=== PATIENT | female | born 1965 | race Caucasian/White ===

== ENCOUNTER 2016-10-07 16:49 | Inpatient (IN) | payer OTHER ==
[~2016-10-07] VITALS: Ht 167.6 cm; Wt 150.1 kg
[~2016-10-07 16:49] MED LIST: AMLO5TAB2 PO; AMT25T PO; ASPI325T32 PO; ATOR40TA69 PO; FLUO20CA25 PO; FURO40TA4 PO; GABA600T2 PO; GLIP5TAB21 PO; HYDR25TA4 PO; INSLIS SUBQ; INSU100V7 SUBQ; KEN25CR TP; LISI40TA PO; METF500T3 PO; MIRENA IUD VAGINAL
[2016-10-07 16:55] VITALS: BP 122/64; PULSE 112; RESP 20; O2SAT 98
[2016-10-07] MEDS ORDERED: mirena (17:17)
[2016-10-07] MEDS ORDERED: FERR325C PO (17:17)
[2016-10-07] MEDS ORDERED: CHOL40003 PO (17:17)
[2016-10-07] MEDS ORDERED: CYAN500 PO (17:17)
[2016-10-07] MEDS ORDERED: AMLO10TA3 PO (17:17)
[2016-10-07] MEDS ORDERED: ASCO500C6 PO (17:17)
[2016-10-07] MEDS ORDERED: MELA1TAB10 PO (17:17)
--- NOTE | 2016-10-07 17:44 | DRSVH ---
PROCEDURE: X-RAY CHEST ONE VIEW ([id number]) INDICATIONS: Fever TECHNIQUE: One view of the chest was acquired. COMPARISON: [facility], CR, XR CHEST 2VW, 08/16/2015, 10:06. FINDINGS: Surgical changes and devices: None. Lungs and pleura: No pleural effusions or pneumothorax. Lungs are clear. Mediastinum: Mediastinal contours appear normal. Heart size is normal. Bones and chest wall: No suspicious bony lesions. Overlying soft tissues appear unremarkable. IMPRESSION: No acute disease. Dictated by: Reggie Temple M.D. on 10/07/2016 at 17:41 Approved by: Reggie Temple M.D. on 10/07/2016 at 17:42
[2016-10-07 17:51] VITALS: BP 117/56; PULSE 111; RESP 20; O2SAT 92
[2016-10-07 17:52] LABS: BASOPHILS % (AUTO) 0.1 % (0-3); EOSINOPHILS % (AUTO) 0.2 % (0-5); Mean Corpuscular Hemoglobin 28.1 pg (27.0-35.0); Mean Corpuscular Volume 85.8 fL (81-100); NEUTROPHILS % (AUTO) 72.4 % (40-74); Platelet Count 164 bil/L (150-400)
--- NOTE | 2016-10-07 17:59 | ED.REPORT ---
HPI-General Illness Date of Service Oct 07, 2016 ED Provider: Azam Kapoor MD Pt is a 51 y/o female w/ a hx of prev UTI, DM, HTN, CVA w/ residual R-sided deficits, presenting to the ED from urgent care due to fever onset 4 days ago. Pt c/o mild headache, nausea, vomiting, fever, chills, left-sided back pain, malaise. She denies abdominal pain dysuria, urinary incontinence, SOB, cough, congestion. She has had a UTI previously but the symptoms were not similar. She states she has sensory loss about the right side of her body which may be causing her to not experience abdominal pain. Nursing Notes Stated Complaint: FEVER/SENT FROM URGENT CARE Chief Complaint: General Complaint Nursing Notes Reviewed: Yes Allergies: Uncoded Allergies: SEAFOOD=THROAT CLOSES PT STATES NO PROBLEM WITH IODINE (Allergy, Severe, "THROAT CLOSES-NO PROBLEMS W/ IODINE, 01/27/16) Scheduled Amitriptyline (Amitriptyline) 25 Mg Tab 50 MG PO HS Amlodipine (Amlodipine) 10 Mg Tablet 10 MG PO DAILY Ascorbic Acid (Vitamin C) 500 Mg Capsule.er 1,000 MG PO DAILY Aspirin (Aspirin) 325 Mg Tablet 325 MG PO DAILY Atorvastatin Calcium (Atorvastatin Calcium) 40 Mg Tablet 40 MG PO DAILY Cholecalciferol (Vitamin D3) (Vitamin D3) 4,000 Unit Capsule 4,000 UNIT PO DAILY Cyanocobalamin (Vitamin B12) 500 Mcg Tablet 1,000 MCG PO DAILY Ferrous Sulfate (Iron) 325 Mg Capsule.er 325 MG PO DAILY Fluoxetine (Fluoxetine) 20 Mg Capsule 80 MG PO DAILY Furosemide (Furosemide) 40 Mg Tablet 40 MG PO BID Gabapentin (Gabapentin) 600 Mg Tablet 600 MG PO QID TAKES 900MG @ HS Glipizide ER (Glipizide ER) 10 Mg Tab.er.24 10 MG PO DAILY Hydrochlorothiazide (Hydrochlorothiazide) 25 Mg Tablet 25-37.5 MG PO DAILY Insulin Glargine (Lantus U100 Insulin Vial) 100 Unit/Ml Vial 60 UNIT SUBQ BIDAC Lisinopril (Lisinopril) 40 Mg Tablet 40 MG PO BID Melatonin (Melatonin 1 mg Tablet) 1 Each Tablet 1 MG PO HS Metformin ER (Glucophage XR) 500 Mg Tablet 2,000 MG PO DAILYWD Scheduled PRN Insulin Human Lispro (HumaLOG U100 Insulin Vial) 100 Unit/Ml Unit 5-15 UNITS SUBQ q6hr PRN PRN Q6H DIR. Check blood sugars before meals and at bedtime. Use correction factor only before meals. Blood Sugar Lispro Correction: <151, 0 units; 151-175, 1 unit; 176-200, 2 units; 201-225, 3 units; 226-250, 4 units; 251-275, 5 units; 276-300 , 6 units; 301-325, 7 units; 326-350, 8 units; 351-375, 9 units; 376-400, 10 units; >400, 12 units. Miscellaneous Medications ([Mirena Iud]) VAGINAL 20MCG/24H ([mirena]) General Time Seen by MD: 17:54 Chief Complaint Multip medical complaints Hx Obtained From: Patient Arrived By: Walk-in Sudden in Onset?: No Onset Occurred: 4 days ago Symptom Duration: Since onset Location: : Back Quality: Painful Severity: Current: Mild Severity: Maximum: Mild Past Medical History Past Medical History CVA w/ residual R sided deficits Diabetes HTN Asthma TANIA on CPAP Anxiety Depression Sinusitis hx UTI Past Surgical History Cholecystectomy Hernia repair Bariatric BTL Teeth extractions Smoking History Former Smoker Ambulatory Status Independent Review of Systems Full Review of Systems Constitutional: Reports: Chills, Fever, Malaise, Weakness - generalized Respiratory: Denies: Non-productive cough, Shortness of breath Cardiovascular: Denies: Chest pain, Dyspnea on exertion GI: Reports: Nausea, Vomiting, Denies: Abdominal pain Female: Denies: Dysuria, Incontinence Musculoskeletal: Reports: Back pain Complete sys rev & neg: except as marked. Physical Exam Vital Signs Vital Signs Date Time Temp Pulse Resp B/P Pulse Ox O2 Delivery O2 Flow Rate FiO2 10/07/16 19:25 38.3 109 23 116/50 96 Room Air 10/07/16 18:12 39.5 111 20 125/52 93 Room Air 10/07/16 17:51 111 20 117/56 92 Room Air 10/07/16 16:55 38.4 112 20 122/64 98 Room Air Initial VS: Reviewed, Vital signs abnormal Head / Eyes: Atraumatic, Normocephalic, PERRL ENT: Mucous membranes moist, Conjunctiva normal, No scleral icterus Neck: Supple, Full range of motion Respiratory: Breath sounds normal, Clear to auscultation, No respiratory distress Extremities: Vascular intact, Neuro intact, No swelling Skin: Warm, Dry, No cyanosis Neurologic: Alert, Oriented, Nonfocal Psychiatric: Mood/affect normal, Behavior normal, Normal thought content General/Constitutional: Awake, Alert, No acute distress, Cooperative, Not toxic appearing Appearance / Presentation: Positive: Obese, morbidly Cardiovascular: Regular rhythm, Heart sounds NL, No gallop, No murmurs, No rubs Heart Rate / Rhythm: Positive: Tachycardia Abdomen: Atraumatic, Soft, No guarding, No rebound Tenderness/Guarding/Rebound: Positive: Tender RUQ... (Moderate) No flank tenderness Back: Full range of motion, Painless range of motion, No CVA tenderness Interpretation & Diagnostics Lab Results Interpretation Result Diagram: 10/07/16 1730 10/07/16 1730 Test 10/07/16 17:23 10/07/16 17:30 Urine Color Yellow (YELLOW) Urine Appearance Slightly cloudy Urine pH 5.5 (5.0-8.0) Urine Specific [place] 1.015 (1.003-1.035) Urine Protein Tracemg/dL (NEG,TRACE) Urine Glucose (UA) Negativemg/dL (NEGATIVE) Urine Ketones Negativemg/dL (NEGATIVE) Urine Occult Blood Moderate (NEGATIVE) Urine Nitrite Negative (NEGATIVE) Urine Bilirubin Negative (NEGATIVE) Urine Urobilinogen Normalmg/dL (NORMAL) Urine Leukocyte Esterase Large (NEGATIVE) Urine RBC 3-10/hpf (0-2) Urine WBC >50/hpf (0-5) Urine Epithelial Cells Moderate/hpf (NONE-MOD) Urine Crystals None seen (NONE SEEN) Urine Bacteria Moderate/hpf (NONE-FEW) Urine Hyaline Casts None/lpf (NONE) Urine Granular Casts None seen (NONE SEEN) Urine Waxy Casts None seen (NONE SEEN) Urine Red Blood Cell Casts None seen (NONE SEEN) Urine White Blood Cell Casts None seen (NONE SEEN) Urine Mucus None seen (None Seen) Urine Trichomonas None seen (NONE SEEN) Urine Yeast None (NONE SEEN) Urinalysis Comment None Urine Culture Reflexed Indicated White Blood Count 8.0th/mm3 (3.8-10.1) Red Blood Count 3.81mil/mm3 (3.90-5.20) Hemoglobin 10.7g/dL (12.0-15.6) Hematocrit 32.7% (35.0-46.0) Mean Corpuscular Volume 85.8fL (81-100) Mean Corpuscular Hemoglobin 28.1pg (27.0-35.0) Mean Corpuscular Hemoglobin Concent 32.7% (32.0-37.0) Red Cell Distribution Width 14.7% (12.3-15.4) Platelet Count 164bil/L (150-400) Neutrophils (%) (Auto) 72.4% (40-74) Lymphocytes (%) (Auto) 15.2% (14-46) Monocytes (%) (Auto) 12.0% (4-12) Eosinophils (%) (Auto) 0.2% (0-5) Basophils (%) (Auto) 0.1% (0-3) Sodium Level 133mEq/L (134-144) Potassium Level 3.4mEq/L (3.5-5.2) Chloride Level 92mEq/L (97-108) Carbon Dioxide Level 25mmol/L (18-29) Blood Urea Nitrogen 35mg/dL (6-24) Creatinine 1.39mg/dL (0.57-1.00) Estimat Glomerular Filtration Rate 57mL/min (>59) Glucose Level 183mg/dL (60-99) Lactic Acid Level 1.4mmol/L (0.4-2.0) Calcium Level 9.1mg/dL (8.5-10.1) Magnesium Level 1.9mg/dL (1.6-2.6) Total Bilirubin 0.4mg/dL (0.0-1.2) Aspartate Amino Transf (AST/SGOT) 23U/L (0-50) Alanine Aminotransferase (ALT/SGPT) 24U/L (0-32) Alkaline Phosphatase 121U/L (25-150) C-Reactive Protein 22.0mg/dL (0.0-0.5) Total Protein 7.2g/dL (6.4-8.4) Albumin 3.5g/dL (3.4-5.0) Lipase 11U/L (13-60) ECG Interpretation ECG Interpretation: Sinus tachycardia rate 111 Time: 18:35 Interpreted by: ED physician Normal ECG Interpretation: Normal sinus rhythm, No acute ischemic changes, Normal QRS, Normal axis, Normal intervals, Adequate tracing X-Ray Chest Interpretation Chest Xray Interpretation: IMPRESSION: No acute disease. Dictated by: Reggie Temple M.D. on 10/07/2016 at 17:41 Approved by: Reggie Temple M.D. on 10/07/2016 at 17:42 View: Portable, 1 view Interpretation / Wet Read by: Interpret - Radiologist CT Abd / Pelvis Interpretation PROCEDURE: CT ABDOMEN AND PELVIS WITH CONTRAST ([id number]) INDICATIONS: abdominal pain TECHNIQUE: After the administration of intravenous contrast, 5 mm thick sections acquired from the diaphragm to the symphysis. 5 mm coronal and sagittal reformats were acquired. For radiation dose reduction, the following was used: automated exposure control, adjustment of mA and/or kV according to patient size. COMPARISON: [facility], CT, CT ABD PELVIS W CON, 07/30/2015, 17:48. FINDINGS: Image quality: Excellent. ABDOMEN: Lung bases: Lung bases are clear. Heart size is normal. There is trace pericardial fluid Solid organs: Liver and spleen are normal in size and enhancement. There is an unchanged presumed splenic cyst. Gallbladder surgically absent. Biliary system is non dilated. Pancreas enhances normally. No adrenal nodules. Kidneys demonstrate normal size and enhancement, without hydronephrosis. There is a 2 mm calcification in the region of the left ureterovesical junction however this is grossly unchanged since 07/30/15 and may be phleboliths in the area. A there is left perinephric fat stranding, which is new since the prior study. Right perinephric stranding appears grossly unchanged. Peritoneum and bowel: Bowel loops demonstrate normal wall thickness and caliber. No free fluid or air. Incidental colonic diverticulosis. Rectum grossly unremarkable. Appendix not seen Nodes and vessels: No retroperitoneal or mesenteric adenopathy by size criteria. Aorta and inferior vena cava are normal in size. Miscellaneous: Small fat-containing umbilical hernia PELVIS: Genitourinary: Bladder wall thickness is normal. Incidentally noted IUD Miscellaneous: No inguinal hernias or adenopathy. Bones: No suspicious bony lesions. No vertebral body compression fractures. IMPRESSION: Left perinephric stranding, of unknown etiology. No definite associated urolithiasis. A small calcification seen in the region of the distal left ureter is unchanged since 07/30/15. This could represent recently passed calculus, however cannot exclude pyelonephritis. Please correlate clinically and with urinalysis data. Elsewhere, no acute abnormality seen. Dictated by: Reggie Temple M.D. on 10/07/2016 at 20:18 Approved by: Reggie Temple M.D. on 10/07/2016 at 20:27 Re-Eval/Medical Decision Med Decision/Clinical Course Pt is a 51 y/o female w/ a hx of prev UTI, DM, HTN, CVA w/ residual R-sided deficits, presenting to the ED from urgent care due to fever onset 4 days ago. Pt c/o mild headache, nausea, vomiting, fever, chills, left-sided back pain, malaise. She denies abdominal pain dysuria, urinary incontinence, SOB, cough, congestion. She has had a UTI previously but the symptoms were not similar. She states she has sensory loss about the right side of her body which may be causing her to not experience abdominal pain. Here in the emergency room the patient is febrile and tachycardic with right sided abdominal tenderness and examination as above. Labs notable as below: CBC: No leukocytosis, HCT of 32.7 decreased from previous of 39.8 in March 2016 CMP: Sodium 133, BUN of 31, creatinine of 1.39, transaminases normal Lactic acid 1.4 UA: large leukocyte esterase, >50 WBCs, moderate bacteria, consistent with UTI Meds given: Fluids, Tylenol, Zofran, IV Zosyn for presumed pyelonephritis. Chest x-ray: IMPRESSION: No acute disease. CT scan of the abdomen and pelvis obtained as below: Left perinephric stranding, of unknown etiology. No definite associated urolithiasis. A small calcification seen in the region of the distal left ureter is unchanged since 07/30/15. This could represent recently passed calculus , however cannot exclude pyelonephritis. Please correlate clinically and with urinalysis data. Elsewhere, no acute abnormality seen. Overall presentation seems consistent with pyelonephritis. Given the patient's fever, tachycardia I am aggressively treating with IV antibiotics, fluids and 2 sets of blood cultures have been obtained. Patient has been discussed with the admitting hospitalist and accepted for further management. Source of Hx: Old records Time of Eval: 18:28 Re-Evaluation/Progress Note: Pt rechecked. Informed pt of need for admission. Pt understands and agrees with plan for admission. All questions addressed. Consultation : Referral / Consult Name: Wendy Pardo MD Consulted With: Hospitalist Call Returned at: 19:16 Programs Director: Will see patient, Agrees with eval, Agrees with plan, Accepts admit Counseled Regarding: Diagnosis, Lab results, Need for admission Discharge & Departure Primary Impression: Sepsis Sepsis type: sepsis due to unspecified organism Qualified Code: A41.9 - Sepsis, unspecified organism Additional Impressions: Pyelonephritis Tachycardia Fever Fever type: unspecified Qualified Code: R50.9 - Fever, unspecified Disposition: ADMITTED TO HOSPITAL Discharge Condition All VS Reviewed: Yes Condition: Stable Referrals: Rajendra Kwan DO (PCP) Crit Care Except Billable Proc Time Spent: 30-74 minutes Services Performed: Patient management by me, Time spent at bedside, Reviewing test results, Reviewing imaging, Discussing patient care, Documentation in record, Time with fam/surrogate Scribe Attestation Portions of this note were transcribed by Santiago Drummond. I, Dr. Kapoor personally performed the history, physical exam and medical decision-making; I reviewed and confirmed the accuracy of the information in the transcribed note. Signed by Zoe Mancini, 10/07/16 - 0943 copies to: Rajendra Kwan Beck O MD Oct 07, 2016 17:59 SANTIAGO DRUMMOND Oct 07, 2016 18:06
[2016-10-07] MEDS ORDERED: 0.9% Sodium Chloride 1,000 ML IV ONE ×2 (18:00→18:27)
[2016-10-07] MEDS ORDERED: Ondansetron 2 mg/mL 2 mL Inj IVPUSH ONE (18:00)
[2016-10-07 18:01] LABS: APPEARANCE,URINE SLIGHTLY CLOUDY (CLEAR,HAZY); COLOR,URINE YELLOW (YELLOW); OCCULT BLOOD,URINE MODERATE (NEGATIVE); PH,URINE 5.5 (5.0-8.0); UROBILINOGEN,URINE NORMAL (NORMAL)
[2016-10-07 18:12] VITALS: BP 125/52; PULSE 111; RESP 20; O2SAT 93
[2016-10-07 18:17] LABS: Magnesium 1.9 mg/dL (1.6-2.6)
[2016-10-07] MEDS ORDERED: Piperacillin-Tazo 3.375 Gm Inj 3.375 GM in Dextrose 5% Minibag Plus 50 ML IV ONE ×2 (18:30→22:30)
[2016-10-07] MEDS ORDERED: Ondansetron 2 mg/mL 2 mL Inj IVPUSH PRN (18:30)
[2016-10-07] MEDS ORDERED: Alum-Mag Hydrox-Simeth 30 mL Suspension PO PRN ×2 (18:30→20:45)
[2016-10-07 19:25] VITALS: BP 116/50; PULSE 109; RESP 23; O2SAT 96
[2016-10-07 20:17] VITALS: BP 100/64; PULSE 105; RESP 20; O2SAT 93
--- NOTE | 2016-10-07 20:29 | DRSVH ---
PROCEDURE: CT ABDOMEN AND PELVIS WITH CONTRAST ([id number]) INDICATIONS: abdominal pain TECHNIQUE: After the administration of intravenous contrast, 5 mm thick sections acquired from the diaphragm to the symphysis. 5 mm coronal and sagittal reformats were acquired. For radiation dose reduction, the following was used: automated exposure control, adjustment of mA and/or kV according to patient rogerio yun. COMPARISON: [facility], CT, CT ABD PELVIS W CON, 07/30/2015, 17:48. FINDINGS: Image quality: Excellent. ABDOMEN: Lung bases: Lung bases are clear. Heart size is normal. There is trace pericardial fluid Solid organs: Liver and spleen are normal in size and enhancement. There is an unchanged presumed sp lenic cyst. Gallbladder surgically absent. Biliary system is non dilated. Pancreas enhances normal ly. No adrenal nodules. Kidneys demonstrate normal size and enhancement, without hydronephrosis. T here is a 2 mm calcification in the region of the left ureterovesical junction however this is grossl y unchanged since 07/30/15 and may be phleboliths in the area. A there is left perinephric fat strandin g, which is new since the prior study. Right perinephric stranding appears grossly unchanged. Peritoneum and bowel: Bowel loops demonstrate normal wall thickness and caliber. No free fluid or a ir. Incidental colonic diverticulosis. Rectum grossly unremarkable. Appendix not seen Nodes and vessels: No retroperitoneal or mesenteric adenopathy by size criteria. Aorta and inferior vena cava are normal in size. Miscellaneous: Small fat-containing umbilical hernia PELVIS: Genitourinary: Bladder wall thickness is normal. Incidentally noted IUD Miscellaneous: No inguinal hernias or adenopathy. Bones: No suspicious bony lesions. No vertebral body compression fractures. IMPRESSION: Left perinephric stranding, of unknown etiology. No definite associated urolithiasis. A small calcifi cation seen in the region of the distal left ureter is unchanged since 07/30/15. This could represent r ecently passed calculus, however cannot exclude pyelonephritis. Please correlate clinically and with urinalysis data. Elsewhere, no acute abnormality seen. Dictated by: Reggie Temple M.D. on 10/07/2016 at 20:18 Approved by: Reggie Temple M.D. on 10/07/2016 at 20:27
[2016-10-07] MEDS ORDERED: Potassium Chloride 20 mEq SR Tablet PO ONE (20:55)
[2016-10-07] MEDS ORDERED: Glucose 40% Oral Gel 15 Gm Tube PO PRN (21:00)
--- NOTE | 2016-10-07 21:41 | PCM.HPMED ---
Subjective Date of Service Oct 07, 2016 Primary Provider: Admitting Physician: Wendy Pardo MD Primary Care Physician: Clinic,[facility] Residency Attending Physician: Wendy Pardo MD Chief Complaint: chills, n/v History of Present Illness: This is a 51-year-old woman with history of type II diabetes, hypertension, and CVA with residual right-sided deficits who originally presented to the ED from urgent care for evaluation of nausea vomiting with fever 4 days. She reports that her symptoms of rigors, myalgis, and nausea began somewhat abruptly Wednesday morning. She originally thought it was food poisoning, but her symptoms continue to progress. She also complains of associated mild headache and lightheadedness. She has noticed decreased urinary frequency due to her poor oral intake and nausea. She also noticed some mild left flank pain, but denies any abdominal pain, diarrhea, rash, or dysuria. She has had multiple UTIs in the past but nothing similar to this. She denies any recent travels or any family members with similar symptoms. In the ED she was noted to be febrile to 39.5C and tachycardic up to 112. She was normotensive and saturating well on room air Her CBC was unrevealing with a white count of 8.0 with no shift Her CMP showed mild hyponatremia and hypokalemia with a BUN/creatinine of 35/ 1.39. Her UA did reveal large LEs with 3-10 rbc's and greater than 50 WBC but negative nitrite She had a CT abdomen and pelvis with contrast which was pertinent for new left perinephric stranding. After blood cultures were drawn patient was started on IV Zosyn for presumed acute pyelonephritis Review of Systems: Complete ROS reviewed with patient and is negative except as stated in the HPI Allergies Uncoded Allergies: SEAFOOD=THROAT CLOSES PT STATES NO PROBLEM WITH IODINE (Allergy, Severe, "THROAT CLOSES-NO PROBLEMS W/ IODINE, 01/27/16) [facility]: Accu-Chek Softclix Lancing Device+Lancets kit Use to check blood sugar three times daily Alcohol Pads Use for blood sugar testing daily amitriptyline 25 mg tablet TAKE ONE TABLET BY MOUTH NIGHTLY AT BEDTIME amlodipine 10 mg tablet take 1 tablet by oral route every day aspirin 325 mg tablet take 1 tablet by oral route every day atorvastatin 40 mg tablet TAKE ONE TABLET BY MOUTH ONE TIME DAILY fluoxetine 20 mg capsule TAKE FOUR CAPSULES BY MOUTH EVERY DAY IN THE MORNING furosemide 40 mg tablet take 1 tablet by oral route 2 times every day gabapentin 600 mg tablet Take 1 tab every 6 hours with and extra 1/2 tablet before bed glipizide ER 10 mg tablet, extended release 24 hr TAKE 1 TABLET BY MOUTH EVERY DAY WITH BREAKFAST Glucophage XR 500 mg tablet,extended release TAKE FOUR TABLETS BY MOUTH ONCE DAILY WITH EVENING MEAL Humalog 100 unit/mL subcutaneous solution INJECT 5 TO 15 UNITS SUBCUTANEOUSLY EVERY 6 HOURS PER PRESCRIBERS INSTRUCTION. hydrochlorothiazide 25 mg tablet TAKE 1 TO 1 & 1/2 TABLETS BY MOUTH ONCE DAILY IN THE MORNING insulin syringe-needle U-100 1 mL 30 gauge x 7/16" use to inject Lantus twice daily and Humalog 3-4 times daily. Lantus 100 unit/mL subcutaneous solution INJECT 60 UNITS SUBCUTANEOUSLY AM and 75 units at night . lisinopril 40 mg tablet take 1 tablet by oral route every day Mirena 20 mcg/24 hr (5 years) intrauterine device True Metrix Glucose Test Strip Use 1 Strip by External route 4 times every day to check blood sugars PMH Type II diabetes insulin requiring CVA with right-sided deficits in 2015 Hypertension Anxiety and depression Obstructive sleep apnea Surgical History Cholecystectomy section Bilateral tubal ligation Left oophorectomy Abdominal hernia repair Family History Extensive family history of diabetes and cardiac disease Father with pancreatic cancer Social History Occupation: seamstress Hx Alcohol Use: No Hx Substance Use: No Smoking Status: Former Smoker (quit 10 years ago) Living Arrangement: with Family Exam Vital Signs Vital Sign - Last Date Time Temp Pulse Resp B/P Pulse Ox O2 Delivery O2 Flow Rate FiO2 10/07/16 20:17 37.4 105 20 100/64 93 Room Air Exam General: Obese female who appears in no acute distress HEENT: Normocephalic, atraumatic. External ears without defect. PERRLA. Anicteric sclerae, moist conjunctivae, and no lid lag. Oropharynx free of erythema and cobble stoning with mildly dry mucosa Neck: Supple with full range of motion. No jugular venous distension. No bruits. No lymphadenopathy or thyromegaly. Cardiovascular: Regular rate and rhythm with no murmurs, rubs, or gallops appreciated Pulmonary: Clear to auscultation bilaterally with no crackles, wheezes, or rhonchi. Normal respiratory effort with no use of accessory muscles. Abdomen: Obese abdomen, Bowel tones present and normoactive. Soft, nontender, nondistended. Mild left flank pain to palpation, no rashes noted Extremities: No clubbing, cyanosis, edema, or lymphadenopathy appreciated. Skin: Normal temperature, turgor, and texture; no rash, ulcers, or subcutaneous nodules appreciated. Neurological: Cranial nerves grossly intact. Normal muscle strength, tone, and bulk. Reflexes, coordination, and sensory function within normal limits. Decrease light sensation of right lower extremity Psychiatric: Normal mood and affect. Alert and oriented to person, place, and time. Cooperative and pleasant Lab and Diagnostics Result Diagram: 10/07/16172910/07/16 173 X-Rays, CTs and MRIs PROCEDURE: CT ABDOMEN AND PELVIS WITH CONTRAST ([id number]) IMPRESSION: Left perinephric stranding, of unknown etiology. No definite associated urolithiasis. A small calcification seen in the region of the distal left ureter is unchanged since 07/30/15. This could represent recently passed calculus , however cannot exclude pyelonephritis. Please correlate clinically and with urinalysis data. Elsewhere, no acute abnormality seen. PROCEDURE: X-RAY CHEST ONE VIEW ([id number]) IMPRESSION: No acute disease. Assessment & Plan This is a 51-year-old woman with history of type II diabetes, hypertension, and CVA with residual right-sided deficits who originally presented to the ED from urgent care for evaluation of nausea vomiting with fever 4 days. Admitted for inpatient management of acute pyelonephritis and sepsis Sepsis, POA As demonstrated by fever, tachycardia, with urinary source of infection. Initial lactate was 1.4 Patient received 2 L of NS fluids in the ED and was started on IV Zosyn on 10/07 Continue early goal-directed therapy Likely acute pyelonephritis, POA As demonstrated by her constitutional symptoms, left flank pain, new left perinephric stranding on CT, and grossly abnormal UA In this complex patient with difficult to control diabetes, she will require IV antibiotics. We will plan to continue IV Zosyn that was initiated in the ED. Continue hydration with 1 more Liter of IV normal saline at 200 mL per hour. Reassess fluid status in the AM prior to continuing anymore IVF Blood cultures drawn and pending Tylenol as needed for fevers, Zofran as needed for nausea Type II diabetes mellitus, insulin requiring, POA Patient has historically difficult to control diabetes. We will check hemoglobin A1c We will resume her home Lantus dosing to 60 units twice a day We will place on high-dose lispro correctional scale Will hold her Glipizide and Metformin due to recent contrast and CHARLA Pt is also on Lasix 40mg daily for swelling per her psychiatric assistant, Dr. Marie, but we will hold this while fluid resuscitating. Resume when appropriate. Likely Acute Kidney Injury, POA Cr of 1.39 on admission, recent Cr in March was 0.99. CHARLA likely due to dehydration and infection. Continue treatment as above. Avoid nephrotoxic agents if possible. Hypovolemic hyponatremia, POA Likely due to dehydration. We will treat with IV fluid as above and continue to monitor Hypokalemia, POA Potassium 3.4 on admission. Replenished with 20 mEq PO Kclor, will continue to monitor History of CVA with residual right-sided deficits, POA We will continue her full dose aspirin and atorvastatin Continue her gabapentin for her neuropathy Essential Hypertension, POA We will continue patient's home medications: Lisinopril, amlodipine, hydrochlorothiazide Chronic mood disorders, POA We will continue patient's fluoxetine Insomnia, POA We will continue her amitriptyline and melatonin BMI 51.3 Will likely require bariatric bed Bowel regimen for constipation as needed CODE STATUS: Full resuscitation Patient is admitted under inpatient status with expected length of stay greater than 2 midnights due to severity of presenting symptoms, risk of adverse event, and complexity of treatment plan. Attending Statement Pt seen and examined by myself and agree with above plan. Yaya Cruz DO Oct 07, 2016 21:02 Wendy Pardo MD Oct 08, 2016 06:00
[2016-10-07] MEDS ORDERED: GABA600T2 PO (22:48)
[2016-10-07] MEDS ORDERED: AMT50T PO (22:48)
[2016-10-07] MEDS ORDERED: INSU100V7 SUBQ (22:50)
[2016-10-07] MEDS ORDERED: FURO40TA4 PO (22:53)
[2016-10-07] MEDS: 0.9% Sodium Chloride 1,000 ML IV SCH (23:32)
[2016-10-07] MEDS: Ondansetron 2 mg/mL 2 mL Inj IVPUSH PRN (23:32)
[2016-10-08] MEDS: Piper-Tazo 3.375 Gm/50 mL D5W Minibag Plus - Q8H over 4 hrs IV SCH ×6 (00:17→18:00)
[2016-10-08] MEDS: Sodium Chloride LOK Flush 10 mL Syringe IVFLUSH SCH ×3 (00:30→14:59)
[2016-10-08] MEDS: Insulin GLARgine 100 Unit/mL Syringe SUBQ SCH ×3 (01:25→22:26)
[2016-10-08] MEDS: Ondansetron 2 mg/mL 2 mL Inj IVPUSH PRN (01:26)
[2016-10-08] MEDS: Heparin 5,000 Unit/mL Inj SUBQ SCH ×3 (01:26→18:01)
[2016-10-08] MEDS: 0.9% Sodium Chloride 1,000 ML IV SCH ×5 (01:55→20:02)
[2016-10-08] MEDS ORDERED: Ampicillin-Sulbactam Inj 3,000 MG in 0.9% Sodium Chloride 100 ML IV SCH (02:30)
[2016-10-08 05:18] VITALS: BP 120/59; PULSE 116; RESP 18; O2SAT 72
--- NOTE | 2016-10-08 05:20 | NUR ---
7-7am patient's O2 saturation was72% despite of cpap, RN is aware Addendum: 10/08/16 at 0523 by JULIANE MUJICA CNA Amended: Links added.
--- NOTE | 2016-10-08 06:00 | NUR ---
Admit Patient arrived on unit, able to self transfer to bed. Denies Pain and or nausea at that time, however had an episode of nausea earlier. Patient A&O, able to make needs known. Son brought CPAP machine from home, used through out night. Patient had pedicure and manicure done for birthday unable to obtain accurate O2 sats, however color, cap refill, and LOC are all good. Will place ear clip monitor recheck.
[2016-10-08 06:24] LABS: BASOPHILS % (AUTO) 0.2 % (0-3); EOSINOPHILS % (AUTO) 0.2 % (0-5); Mean Corpuscular Volume 87.3 fL (81-100); Platelet Count 157 bil/L (150-400)
[2016-10-08] MEDS ORDERED: Insulin LISPRO 300 Unit/3 mL Inj SUBQ SCH (08:00)
[2016-10-08] MEDS ORDERED: Non-Formulary Medication (Glipizide ER 10 MG) PO SCH (08:30)
[2016-10-08 09:11] VITALS: BP 97/60; PULSE 98; RESP 18; O2SAT 91
[2016-10-08] MEDS: Ascorbic Acid 500 mg Tablet PO SCH (09:25)
[2016-10-08] MEDS ORDERED: Dextrose 10% 250 ML IV PRN (10:25)
[2016-10-08] MEDS: Insulin LISPRO 300 Unit/3 mL Inj SUBQ SCH ×3 (12:30→22:00)
[2016-10-08 12:42] VITALS: BP 121/78; PULSE 105; RESP 16
--- NOTE | 2016-10-08 17:11 | DRSVH ---
PROCEDURE: US RENAL SONOGRAM INDICATIONS: Possible hydronephrosis nor obstruction TECHNIQUE: Real-time scanning was performed of the kidneys and bladder, with image documentation. COMPARISON: [facility], US, [facility], 07/04/2015, 8:13. CT from 10/07/2016. FINDINGS: Kidneys: Kidneys are normal in size. Right kidney measures 10.1 cm long; left kidney measures 10.6 cm long. Right renal cortical thickness is 1.8 cm; left renal cortical thickness is 1.8 cm. Renal c ortical echotexture is normal. No hydronephrosis or nephrolithiasis. No suspicious solid mass lesio ns. The spleen measures 15.1 x 11.1 x 5.2 CM with a 5 cm splenic cyst. Bladder: The patient's bladder was emptied prior to the examination. Miscellaneous: No free pelvic fluid. IMPRESSION: Sonographically normal kidneys. No sonographic correlate for left perinephric stranding seen on the r ecent CT. The bladder was emptied prior to the study limiting evaluation. Dictated by: Isac Banuelos M.D. on 10/08/2016 at 17:07 Approved by: Isac Banuelos M.D. on 10/08/2016 at 17:08
[2016-10-08] MEDS ORDERED: METFORMIN PO SCH (17:30)
--- NOTE | 2016-10-08 18:46 | NUR ---
Febrile/O2 Febrile: pt off and on with fevers; stating usually runs hot but was feeling cold this AM, low grade at 1250 of 38.2, also c/o headache. 650mg PO Tylenol given. Reassessment, Headache improved but Tb elevated to 39.1. camera systems engineer aware and MD standing outside of pt room just after this assessment. O2: Pt with CPAp for HS. Pt with dark colored manicure, attempted to get reading via ear probe - mid 80s. Pt denying any SOB at RA. Did place 4L NC while awake to maintain sats at 92%. Care continues.
[2016-10-08 20:45] VITALS: BP 124/79; PULSE 81; RESP 16; O2SAT 97
--- NOTE | 2016-10-08 23:31 | PCM.PNMED ---
Subjective Date of Service Oct 08, 2016 Subjective The patient is feeling a little bit better. She has no new complaints. She continues to have fever. However, she has no chills or diaphoresis. Exam Vital Signs Vital Sign - Last Date Time Temp Pulse Resp B/P Pulse Ox O2 Delivery O2 Flow Rate FiO2 10/08/16 22:30 38.8 10/08/16 20:45 81 16 124/79 97 Room Air 10/08/16 12:42 2.00 Intake and Output 10/07/16 10/07/16 10/08/16 Cumulative From/Thru 15:00 23:00 07:00 10/07/16 16:55 - 10/07/16 20:18 Intake Total 1998 ml 1998 ml Balance 1998 ml 1998 ml IV Total 1998 ml 1998 ml # Voids 1 1 Exam General: Patient is in no apparent distress lying supine in bed with nasal cannula oxygen in place. Patient is morbidly obese. HEENT: Head is atraumatic and normocephalic. Eyes: Pupils are equally round and reactive to light and accommodation. Extraocular muscles are intact. Sclera are white, anicteric. Subconjunctival mucosa is pink. Ears and nose are unremarkable. Oropharynx: There is no mucosal lesions, there is no thrush, there is no pharyngitis. Neck: Is supple, there are no nodes, or masses or tenderness. Chest: Is clear to auscultation and percussion. There are no rales, rhonchi, wheezes or rubs. Heart: Rate, rhythm is regular. There is no murmur, rub or gallop. Abdomen: Good bowel sounds are present. Abdomen is morbidly obese, soft, nontender, no organomegaly or masses were appreciated. There is no CVA tenderness. Extremities: Are symmetrical and well perfused. There is no edema, there is no cellulitis, no rash. Neurologic: There are no focal neurological deficits. Cranial nerves II through XII are intact. There are no sensory or motor deficits. Psychiatric: Patients mood is calm and shows no sign of agitation. Genital: Deferred Rectal: Deferred Lab and Diagnostics Result Diagram: 10/08/16 0600 10/08/16 0600 X-Rays, CTs and MRIs PROCEDURE: CT ABDOMEN AND PELVIS WITH CONTRAST ([id number]) IMPRESSION: Left perinephric stranding, of unknown etiology. No definite associated urolithiasis. A small calcification seen in the region of the distal left ureter is unchanged since 07/30/15. This could represent recently passed calculus , however cannot exclude pyelonephritis. Please correlate clinically and with urinalysis data. Elsewhere, no acute abnormality seen. PROCEDURE: X-RAY CHEST ONE VIEW ([id number]) IMPRESSION: No acute disease. PROCEDURE: US RENAL SONOGRAM INDICATIONS: Possible hydronephrosis nor obstruction TECHNIQUE: Real-time scanning was performed of the kidneys and bladder, with image documentation. COMPARISON: [facility], US, [facility], 07/04/2015, 8: 13. CT from 10/07/2016. FINDINGS: Kidneys: Kidneys are normal in size. Right kidney measures 10.1 cm long; left kidney measures 10.6 cm long. Right renal cortical thickness is 1.8 cm; left renal cortical thickness is 1.8 cm. Renal cortical echotexture is normal. No hydronephrosis or nephrolithiasis. No suspicious solid mass lesions. The spleen measures 15.1 x 11.1 x 5.2 CM with a 5 cm splenic cyst. Bladder: The patient's bladder was emptied prior to the examination. Miscellaneous: No free pelvic fluid. IMPRESSION: Sonographically normal kidneys. No sonographic correlate for left perinephric stranding seen on the recent CT. The bladder was emptied prior to the study limiting evaluation. Dictated by: Isac Banuelos M.D. on 10/08/2016 at 17:07 Approved by: sIac Banuelos M.D. on 10/08/2016 at 17:08 Assessment & Plan This is a 51-year-old morbidly obese woman with history of type II diabetes, hypertension, and CVA with residual right-sided deficits who originally presented to the ED from urgent care for evaluation of nausea vomiting with fever 4 days. Admitted to the hospitalist service for inpatient management of acute pyelonephritis and sepsis # Sepsis, present on admission. Active As demonstrated by fever, tachycardia, with urinary source of infection. Initial lactate was 1.4 Patient received 2 L of NS fluids in the ED and was started on IV Zosyn on 10/07 Continue early goal-directed therapy # Likely acute pyelonephritis, present on admission. Active As demonstrated by her constitutional symptoms, left flank pain, new left perinephric stranding on CT, and grossly abnormal UA In this complex patient with difficult to control diabetes, she will require IV antibiotics. We will plan to continue IV Zosyn that was initiated in the ED. Continue hydration with 1 more Liter of IV normal saline at 200 mL per hour. Continue IV fluids at 125 mL an hour. Blood cultures drawn and pending Tylenol as needed for fevers, Zofran as needed for nausea # Type II diabetes mellitus, insulin requiring, present on admission Patient has historically difficult to control diabetes. Hemoglobin A1c was 7.7 We will resume her home Lantus dosing to 60 units every morning and 80 units every afternoon We will place on high-dose lispro correctional scale Will hold her Glipizide and Metformin due to recent contrast and CHARLA Pt is also on Lasix 40mg daily for swelling per her hospital account liaison, Dr. Marie, but we will hold this while fluid resuscitating. Resume when appropriate. # Likely Acute Kidney Injury, present on admission Cr of 1.39 on admission, recent Cr in March was 0.99. CHARLA likely due to dehydration and infection. Continue treatment as above. Avoid nephrotoxic agents if possible. # Hypovolemic hyponatremia, present on admission. Active Likely due to dehydration. We will treat with IV fluid as above and continue to monitor # Hypokalemia, present on admission. Improved Potassium 3.4 on admission. Replenished with 20 mEq PO Kclor, will continue to monitor # History of CVA with residual right-sided deficits, as on admission. Stable We will continue her full dose aspirin and atorvastatin Continue her gabapentin for her neuropathy # Essential Hypertension, present on admission. Stable We will continue patient's home medications: Lisinopril, amlodipine, hydrochlorothiazide # Chronic mood disorders, resonant on admission We will continue patient's fluoxetine # Insomnia, on admission We will continue her amitriptyline and melatonin BMI 51.3 Will likely require bariatric bed Bowel regimen for constipation as needed CODE STATUS: Full resuscitation Disposition: Patient will be here for at least 48 hours after her fever resolves. She still has fever she will be here another 72 hours. Pain Evaluation: Adequate Pain Control GI Prophylaxis: Not indicated VTE Prophylaxis: Sub-Q Heparin (Unfractionated) Resuscitation Status: CPR: Attempt Resuscitation TustinLuis MD Oct 08, 2016 23:31
[2016-10-09] VITALS (8 sets, daily range): BP systolic 118–131; BP diastolic 70–74; PULSE 98–102; RESP 20–24; O2SAT 87–96
[2016-10-09] MEDS: Sodium Chloride LOK Flush 10 mL Syringe IVFLUSH SCH ×3 (00:30→18:15)
[2016-10-09] MEDS: Heparin 5,000 Unit/mL Inj SUBQ SCH ×3 (01:32→18:16)
[2016-10-09] MEDS: Piper-Tazo 3.375 Gm/50 mL D5W Minibag Plus - Q8H over 4 hrs IV SCH ×6 (01:43→18:15)
--- NOTE | 2016-10-09 04:41 | ABG ---
DateTimeAnalyzed 04:35:00 -_ pH ____7.354 - 7.350 7.450 pCO2 ___44.4__ -mmHg 35.0 45.0 pO2 ___55.6__ -mmHg 69.0 116 HCO3- ___24.1__ -mmol/L 22.0 26.0 ABE ___-0.9__ -mmol/L -2.0 2.0 tHb ____9.6__ -g/dL O2Hb ___85.8__ -% COHb ____1.3__ -% MetHb ____0.5__ -% sO2 ___87.4__ -% FIO2 __100.0__ -% Drawn By MK - Date/Time Notified____ 04:41:00 -_ Notified By MK - Notified Whom DR KUBISTY - B 761 -mmHg tO2 ___11.7__ -Vol% Syd test _Positive -
[2016-10-09] MEDS ORDERED: Furosemide 10 mg/mL 4 mL Inj IVPUSH ONE (04:45)
--- NOTE | 2016-10-09 04:58 | PCM.PNMED ---
Subjective Date of Service Oct 09, 2016 Subjective Asked to see patient for increasing hypoxia. Patient denies any chest pain. She has been using CPAP while sleeping .Denies cough. Exam Vital Signs Vital Sign - Last Date Time Temp Pulse Resp B/P Pulse Ox O2 Delivery O2 Flow Rate FiO2 10/08/16 23:53 8.00 10/08/16 22:30 38.8 10/08/16 20:45 81 16 124/79 97 Room Air Intake and Output 10/08/16 10/08/16 10/09/16 Cumulative From/Thru 15:00 23:00 07:00 10/07/16 16:55 - 10/08/16 18:32 Intake Total 1092 ml 2791 ml 5881 ml Output Total 750 ml 750 ml Balance 1092 ml 2041 ml 5131 ml Intake Oral 50 ml 320 ml 370 ml IV Total 1042 ml 2471 ml 5511 ml Output Urine Total 750 ml 750 ml # Voids 2 3 Exam Constitutional: Obese female in no acute distress Head: Normocephalic atraumatic Chest: Decreased breath sounds at her bases posteriorly Cor: Regular rate and rhythm S1-S2 Abdomen: Soft mild tenderness in the right mid abdominal area no rebound no guarding Extremities: Trace bilateral pedal edema Neuro: Alert and oriented 3 motor strength is intact bilaterally IVs and Medications Medications Reviewed: Medications were reviewed in detail Lab and Diagnostics Laboratory Tests 72 Hours Test 10/07/16 17:23 10/07/16 17:30 10/08/16 06:00 Urine Color Yellow (YELLOW) Urine Appearance Slightly cloudy Urine pH 5.5 (5.0-8.0) Urine Specific [place] 1.015 (1.003-1.035) Urine Protein Tracemg/dL (NEG,TRACE) Urine Glucose (UA) Negativemg/dL (NEGATIVE) Urine Ketones Negativemg/dL (NEGATIVE) Urine Occult Blood Moderate (NEGATIVE) Urine Nitrite Negative (NEGATIVE) Urine Bilirubin Negative (NEGATIVE) Urine Urobilinogen Normalmg/dL (NORMAL) Urine Leukocyte Esterase Large (NEGATIVE) Urine RBC 3-10/hpf (0-2) Urine WBC >50/hpf (0-5) Urine Epithelial Cells Moderate/hpf (NONE-MOD) Urine Crystals None seen (NONE SEEN) Urine Bacteria Moderate/hpf (NONE-FEW) Urine Hyaline Casts None/lpf (NONE) Urine Granular Casts None seen (NONE SEEN) Urine Waxy Casts None seen (NONE SEEN) Urine Red Blood Cell Casts None seen (NONE SEEN) Urine White Blood Cell Casts None seen (NONE SEEN) Urine Mucus None seen (None Seen) Urine Trichomonas None seen (NONE SEEN) Urine Yeast None (NONE SEEN) Urinalysis Comment None Urine Culture Reflexed Indicated White Blood Count 8.0th/mm3 (3.8-10.1) 6.1th/mm3 (3.8-10.1) Red Blood Count 3.81mil/mm3 (3.90-5.20) 3.47mil/mm3 (3.90-5.20) Hemoglobin 10.7g/dL (12.0-15.6) 9.7g/dL (12.0-15.6) Hematocrit 32.7% (35.0-46.0) 30.3% (35.0-46.0) Mean Corpuscular Volume 85.8fL (81-100) 87.3fL (81-100) Mean Corpuscular Hemoglobin 28.1pg (27.0-35.0) 28.0pg (27.0-35.0) Mean Corpuscular Hemoglobin Concent 32.7% (32.0-37.0) 32.0% (32.0-37.0) Red Cell Distribution Width 14.7% (12.3-15.4) 14.7% (12.3-15.4) Platelet Count 164bil/L (150-400) 157bil/L (150-400) Neutrophils (%) (Auto) 72.4% (40-74) 71.0% (40-74) Lymphocytes (%) (Auto) 15.2% (14-46) 17.4% (14-46) Monocytes (%) (Auto) 12.0% (4-12) 11.0% (4-12) Eosinophils (%) (Auto) 0.2% (0-5) 0.2% (0-5) Basophils (%) (Auto) 0.1% (0-3) 0.2% (0-3) Sodium Level 133mEq/L (134-144) 138mEq/L (134-144) Potassium Level 3.4mEq/L (3.5-5.2) 3.9mEq/L (3.5-5.2) Chloride Level 92mEq/L (97-108) 99mEq/L (97-108) Carbon Dioxide Level 25mmol/L (18-29) 24mmol/L (18-29) Blood Urea Nitrogen 35mg/dL (6-24) 31mg/dL (6-24) Creatinine 1.39mg/dL (0.57-1.00) 1.41mg/dL (0.57-1.00) Estimat Glomerular Filtration Rate 57mL/min (>59) 57mL/min (>59) Glucose Level 183mg/dL (60-99) 154mg/dL (60-99) Hemoglobin A1c 7.7% (4.8-5.6) Lactic Acid Level 1.4mmol/L (0.4-2.0) 0.5mmol/L (0.4-2.0) Calcium Level 9.1mg/dL (8.5-10.1) 8.3mg/dL (8.5-10.1) Magnesium Level 1.9mg/dL (1.6-2.6) Total Bilirubin 0.4mg/dL (0.0-1.2) 0.4mg/dL (0.0-1.2) Aspartate Amino Transf (AST/SGOT) 23U/L (0-50) 21U/L (0-50) Alanine Aminotransferase (ALT/SGPT) 24U/L (0-32) 24U/L (0-32) Alkaline Phosphatase 121U/L (25-150) 111U/L (25-150) C-Reactive Protein 22.0mg/dL (0.0-0.5) 20.4mg/dL (0.0-0.5) Total Protein 7.2g/dL (6.4-8.4) 5.8g/dL (6.4-8.4) Albumin 3.5g/dL (3.4-5.0) 3.3g/dL (3.4-5.0) Lipase 11U/L (13-60) Procalcitonin 0.26ng/mL (0.00-0.08) 0.25ng/mL (0.00-0.08) Result Diagram: 10/08/16 0600 10/08/16 0600 X-Rays, CTs and MRIs PROCEDURE: CT ABDOMEN AND PELVIS WITH CONTRAST ([id number]) IMPRESSION: Left perinephric stranding, of unknown etiology. No definite associated urolithiasis. A small calcification seen in the region of the distal left ureter is unchanged since 07/30/15. This could represent recently passed calculus , however cannot exclude pyelonephritis. Please correlate clinically and with urinalysis data. Elsewhere, no acute abnormality seen. PROCEDURE: X-RAY CHEST ONE VIEW ([id number]) IMPRESSION: No acute disease. PROCEDURE: US RENAL SONOGRAM INDICATIONS: Possible hydronephrosis nor obstruction TECHNIQUE: Real-time scanning was performed of the kidneys and bladder, with image documentation. COMPARISON: [facility]ound, US, [facility], 07/04/2015, 8: 13. CT from 10/07/2016. FINDINGS: Kidneys: Kidneys are normal in size. Right kidney measures 10.1 cm long; left kidney measures 10.6 cm long. Right renal cortical thickness is 1.8 cm; left renal cortical thickness is 1.8 cm. Renal cortical echotexture is normal. No hydronephrosis or nephrolithiasis. No suspicious solid mass lesions. The spleen measures 15.1 x 11.1 x 5.2 CM with a 5 cm splenic cyst. Bladder: The patient's bladder was emptied prior to the examination. Miscellaneous: No free pelvic fluid. IMPRESSION: Sonographically normal kidneys. No sonographic correlate for left perinephric stranding seen on the recent CT. The bladder was emptied prior to the study limiting evaluation. Dictated by: Isac Banuelos M.D. on 10/08/2016 at 17:07 Approved by: Isac Banuelos M.D. on 10/08/2016 at 17:08 Additional Diagnostics Arterial blood gas on 20% FiO2 ox E mask reveals pH of 7.354 PCO2 44 PO2 55.6 bicarbonate 24.1 Assessment & Plan This is a 51-year-old morbidly obese woman with history of type II diabetes, hypertension, and CVA with residual right-sided deficits who originally presented to the ED from urgent care for evaluation of nausea vomiting with fever 4 days. Admitted to the hospitalist service for inpatient management of acute pyelonephritis and sepsis # Sepsis, present on admission. Active As demonstrated by fever, tachycardia, with urinary source of infection. Initial lactate was 1.4 Patient received 2 L of NS fluids in the ED and was started on IV Zosyn on 10/07 Continue early goal-directed therapy # Likely acute pyelonephritis, present on admission. Active As demonstrated by her constitutional symptoms, left flank pain, new left perinephric stranding on CT, and grossly abnormal UA In this complex patient with difficult to control diabetes, she will require IV antibiotics. We will plan to continue IV Zosyn that was initiated in the ED. Continue hydration with 1 more Liter of IV normal saline at 200 mL per hour. Continue IV fluids at 125 mL an hour. Blood cultures drawn and pending Tylenol as needed for fevers, Zofran as needed for nausea # Type II diabetes mellitus, insulin requiring, present on admission Patient has historically difficult to control diabetes. Hemoglobin A1c was 7.7 We will resume her home Lantus dosing to 60 units every morning and 80 units every afternoon We will place on high-dose lispro correctional scale Will hold her Glipizide and Metformin due to recent contrast and CHARLA Pt is also on Lasix 40mg daily for swelling per her retirement administrator, Dr. Marie, but we will hold this while fluid resuscitating. Resume when appropriate. # Likely Acute Kidney Injury, present on admission Cr of 1.39 on admission, recent Cr in March was 0.99. CHARLA likely due to dehydration and infection. Continue treatment as above. Avoid nephrotoxic agents if possible. # Hypovolemic hyponatremia, present on admission. Active Likely due to dehydration. We will treat with IV fluid as above and continue to monitor # Hypokalemia, present on admission. Improved Potassium 3.4 on admission. Replenished with 20 mEq PO Kclor, will continue to monitor # History of CVA with residual right-sided deficits, as on admission. Stable We will continue her full dose aspirin and atorvastatin Continue her gabapentin for her neuropathy # Essential Hypertension, present on admission. Stable We will continue patient's home medications: Lisinopril, amlodipine, hydrochlorothiazide # Chronic mood disorders, resonant on admission We will continue patient's fluoxetine # Insomnia, on admission We will continue her amitriptyline and melatonin BMI 51.3 Will likely require bariatric bed Bowel regimen for constipation as needed CODE STATUS: Full resuscitation Disposition: Patient will be here for at least 48 hours after her fever resolves. She still has fever she will be here another 72 hours. ADDENDUM: # Acute hypoxia, not present on admission -CTA of chest PE protocol does not reveal any pulmonary emboli there is some possible bibasilar consolidation versus atelectasis on preliminary report - Patient transferred to [facility] for high flow oxygen therapy - We will go ahead and give Lasix 40 mg IV 1 see if this does not improve her oxygenation as her Input were greater than Output -Check EKG,serial troponin GI Prophylaxis: Not indicated VTE Prophylaxis: Sub-Q Heparin (Unfractionated) Resuscitation Status: CPR: Attempt Resuscitation Time spent Critical care time spent 30 minutes Wendy Pardo MD Oct 09, 2016 04:57
--- NOTE | 2016-10-09 05:23 | NUR ---
O2 sats Unable to maintain patient O2 sats above 90%. Percent continued to decline through out shift and noted decline from previous evening. Spiked Temp- 39 at start of shift, hospitalist made aware verbally. Replied wavering fever expected at this time. RT notified to consult with CPAP machine and trouble shoot O2%. Oxygen flow added to flow, intermittent improvement to O2%, but as night progressed became notably worse. RT and night hospitalist paged as deficit remained in mid 80% occasionally dropping to 70's but any sign of improvement ceased. Orders were made to r/o PE. Night hospitalist, upon receiving results, transferred patient upstairs. Patient able to converse comfortably throughout shift, c/o intermittent productive cough(unable to obtain sputum sample). Patient appeared flush from time to time, and spiked fevers, but never altered LOC, denied headaches. Daughter in room, this RN took time to answer any concerns and questions. Patient agreeable, transferred with all belongings.
--- NOTE | 2016-10-09 05:39 | NUR ---
Decreased O2 stats. Pt continued throughout this shift with deceasing O2 stats. She was on 4L N/C (low 90's)at the start of shift and when she when to sleep with her Nasal CPAP on she continued to destat into the 80's then down into the high 70's. RT was called and they put a CPAP mask on but still couldn't get her stats up. Received orders from . for CT and ABG's to R/O PE. CT neg. for PE but possible pneumonia. Stats could not be kept up without high flow O2 at 15L via non-rebreather mask. gave orders for STAT Laxis 40 Mg IV Push and transfer Pt. to [facility] for better O2 management. Report given to EVA Sky and Pt. transferred to 2nd floor room 2030 then transferred care to EVA Sky.
--- NOTE | 2016-10-09 07:54 | NUR ---
Transfer Pt. transferred from [facility] to Room 2030, report received from Alden Goode RN. A/0x4, received on 15L NRB. RT placed High Flow O2, Spo2 increased to upper 90's. Denies Chestpain, SOB. VSS. IV SL (per Dr. Ward) Report given to on coming EVA.
[2016-10-09] MEDS: Insulin LISPRO 300 Unit/3 mL Inj SUBQ SCH ×4 (08:00→21:50)
[2016-10-09 08:01] LABS: BASOPHILS % (AUTO) 0.3 % (0-3); EOSINOPHILS % (AUTO) 0.8 % (0-5); MONOCYTES % (AUTO) 9.3 % (4-12); Mean Corpuscular Hemoglobin 27.6 pg (27.0-35.0); Mean Corpuscular Volume 86.5 fL (81-100); NEUTROPHILS % (AUTO) 67.4 % (40-74); Platelet Count 170 bil/L (150-400)
[2016-10-09 08:15] LABS: Magnesium 2.1 mg/dL (1.6-2.6)
--- NOTE | 2016-10-09 09:19 | DRSVH ---
PROCEDURE: CT ANGIO CHEST PULMONARY EMBOLISM ([id number]) INDICATIONS: hypoxia TECHNIQUE: After the administration of intravenous contrast, 2 mm thick sections acquired from the pulmonary api joan to the posterior costophrenic angles. 3-dimensional maximum intensity projection (MIP) coronal a nd sagittal reformats were then acquired through the thorax. For radiation dose reduction, the follo wing was used: automated exposure control, adjustment of mA and/or kV according to patient size. COMPARISON: [facility], CT, CT ABD PELVIS W CON, 07/30/2015, 17:48. FINDINGS: Image quality: Suboptimal due to body habitus, and associated noise artifact. Pulmonary arteries: Pulmonary arteries are normal in size, and demonstrate no intraluminal filling d efects to suggest central pulmonary embolism. Lungs and pleura: Bilateral dependent areas of consolidation within the lung bases. No pneumothorax or pleural effusion. Central airways appear grossly patent. Scattered atelectasis. Mediastinum: Heart size is normal, without pericardial effusion. No mediastinal or hilar adenopathy . Thoracic aorta is normal in caliber and enhancement. Esophagus is normal in caliber, without hiat al hernia. Bones and chest wall: No suspicious bony lesions. Ribs and thoracic spine appear intact throughout. Thyroid gland unremarkable. No axillary or supraclavicular adenopathy. Abdomen: There is a hypodense 4.0 cm splenic lesion which is grossly unchanged since 07/30/15 with inte rnal water attenuation, presumably splenic cyst IMPRESSION: No evidence of pulmonary embolism. Bilateral areas of dependent consolidation which could represent aspiration and/or pneumonia. Please correlate clinically. Unchanged presumed splenic cyst. Dictated by: Reggie Temple M.D. on 10/09/2016 at 9:02 Approved by: Reggie Temple M.D. on 10/09/2016 at 9:17
[2016-10-09] MEDS: Ascorbic Acid 500 mg Tablet PO SCH (10:09)
--- NOTE | 2016-10-09 10:18 | PCM.PNMED ---
Subjective Date of Service Oct 09, 2016 Subjective Overnight Events: Patient had oxygen desaturation while sleeping on 4L CPAP nasal cannula, unchaged with mask. She did require 15 L highflow oxygen via non rebreather mask. 40 mg IV lasix was given. Stat CT did not reveal any PE, but did show bibasilar consolidation. Troponins have been negative and EKG showed normal sinus rhythm with heart rate of 98. Today, she is resting in bed comfortably and in no acute distress. She is currently on 50L O2 highflow CPAP and does not feel short of breath. She is currently having some sinus pressure more above her left eye, and is feeling warm, but otherwise denies chest pain, abdominal pain, back pain, nausea, vomiting. She is not having any dysuria or hematuria. Exam Vital Signs Vital Sign - Last Date Time Temp Pulse Resp B/P Pulse Ox O2 Delivery O2 Flow Rate FiO2 10/09/16 05:58 Supplement Oxygen CPAP/BIPAP 10/09/16 05:58 36.8 101 22 121/70 96 10/09/16 05:29 100 10/09/16 05:26 50 Intake and Output 10/08/16 10/08/16 10/09/16 Cumulative From/Thru 15:00 23:00 07:00 10/07/16 16:55 - 10/09/16 05:58 Intake Total 1092 ml 2791 ml 907 ml 6788 ml Output Total 750 ml 750 ml Balance 1092 ml 2041 ml 907 ml 6038 ml Intake Oral 50 ml 320 ml 370 ml IV Total 1042 ml 2471 ml 907 ml 6418 ml Output Urine Total 750 ml 750 ml # Voids 2 3 Exam General: Obese female who appears in no acute distress HEENT: Normocephalic, atraumatic. External ears without defect. PERRLA. Anicteric sclerae, moist conjunctivae. Oropharynx free of erythema and cobble stoning with mildly dry mucosa Neck: Supple with full range of motion. No jugular venous distension. No lymphadenopathy or thyromegaly. She has tenderness to palpation at the frontal, maxillary and ethmoid sinuses more on the left. Cardiovascular: Tachycardic with no murmurs, rubs, or gallops appreciated Pulmonary: Clear to auscultation bilaterally with no crackles, wheezes, or rhonchi. Normal respiratory effort with no use of accessory muscles. Currently on 50L highflow CPAP Abdomen: Obese abdomen, Bowel tones present and normoactive. Soft, nontender, nondistended. Extremities: No clubbing, cyanosis, edema, or lymphadenopathy appreciated. Skin: Normal temperature, turgor, and texture; no rash, ulcers, or subcutaneous nodules appreciated. Neurological: Cranial nerves grossly intact. Normal muscle strength, tone, and bulk. Psychiatric: Normal mood and affect. Alert and oriented to person, place, and time. Cooperative and pleasant IVs and Medications Medications Reviewed: Medications were reviewed in detail Lab and Diagnostics Item Value Date Time Troponin T < 0.010 ug/L 10/09/16 0748 Lactic Acid Level 0.5 mmol/L 10/08/16 06 Item Value Date Time Hemoglobin A1c 7.7 % H 10/07/16 1730 Lactic Acid Level 0.5 mmol/L 10/08/16 06 Procalcitonin 0.25 ng/mL H 10/08/16 06 Procalcitonin 0.26 ng/mL H 10/07/16 1730 C-Reactive Protein 20.4 mg/dL H 10/08/16 06 Result Diagram: 10/08/16 0610/08/16 06 Microbiology [facility] CULT URINE Preliminary 10/09/16-924 PRELIMINARY ID GRAM NEGATIVE ADONIS ID AND SENS TO FOLLOW COLONY COUNT/QUANTITY >100,000 CFU/ml PRELIMINARY ID ORG 2 GRAM NEG ADONIS ID AND SENS TO FOLLOW COLONY COUNT/QUANTITY >100,000 CFU/ml X-Rays, CTs and MRIs PROCEDURE: CT ABDOMEN AND PELVIS WITH CONTRAST ([id number]) IMPRESSION: Left perinephric stranding, of unknown etiology. No definite associated urolithiasis. A small calcification seen in the region of the distal left ureter is unchanged since 07/30/15. This could represent recently passed calculus , however cannot exclude pyelonephritis. Please correlate clinically and with urinalysis data. Elsewhere, no acute abnormality seen. PROCEDURE: X-RAY CHEST ONE VIEW ([id number]) IMPRESSION: No acute disease. PROCEDURE: US RENAL SONOGRAM INDICATIONS: Possible hydronephrosis nor obstruction TECHNIQUE: Real-time scanning was performed of the kidneys and bladder, with image documentation. COMPARISON: [facility] Ultrasound, US, [facility], 07/04/2015, 8: 13. CT from 10/07/2016. FINDINGS: Kidneys: Kidneys are normal in size. Right kidney measures 10.1 cm long; left kidney measures 10.6 cm long. Right renal cortical thickness is 1.8 cm; left renal cortical thickness is 1.8 cm. Renal cortical echotexture is normal. No hydronephrosis or nephrolithiasis. No suspicious solid mass lesions. The spleen measures 15.1 x 11.1 x 5.2 CM with a 5 cm splenic cyst. Bladder: The patient's bladder was emptied prior to the examination. Miscellaneous: No free pelvic fluid. IMPRESSION: Sonographically normal kidneys. No sonographic correlate for left perinephric stranding seen on the recent CT. The bladder was emptied prior to the study limiting evaluation. Dictated by: Iasc Banuelos M.D. on 10/08/2016 at 17:07 Approved by: Isac Banuelos M.D. on 10/08/2016 at 17:08 12-lead ECG 10/08/16 Normal Sinus Rhythm with HR 98 Additional Diagnostics Arterial blood gas on 20% FiO2 ox E mask reveals pH of 7.354 PCO2 44 PO2 55.6 bicarbonate 24.1 Assessment & Plan This is a 51-year-old morbidly obese woman with history of type II diabetes, hypertension, and CVA with residual right-sided deficits who originally presented to the ED from urgent care for evaluation of nausea vomiting with fever 4 days. Admitted to the hospitalist service for inpatient management of acute pyelonephritis and sepsis Acute hypoxemic respiratory failure, not present on admission, active CTA of chest PE protocol does not reveal any pulmonary emboli there is some possible bibasilar consolidation versus atelectasis on preliminary report. EKG was reviewed and shows normal sinus rhythm with a heart rate of 98. - Patient in [facility] for high flow oxygen therapy - Troponin negative, repeats ordered q6h. - Currently holding fluids, net balance almost 6L up since admission. Sepsis, present on admission. Active As demonstrated by fever, tachycardia, with urinary source of infection. Initial lactate was 1.4 - Continue IV zosyn Likely acute pyelonephritis, present on admission. Improved As demonstrated by her constitutional symptoms, left flank pain, new left perinephric stranding on CT, and grossly abnormal UA -In this complex patient with difficult to control diabetes, she will require IV antibiotics. -We will plan to continue IV Zosyn that was initiated in the ED. -Holding fluids for now as patient has net balance of almost 6L. -Blood cultures negative x 24 hours -Tylenol as needed for fevers, Zofran as needed for nausea Type II diabetes mellitus, insulin requiring, present on admission Patient has historically difficult to control diabetes. -Hemoglobin A1c was 7.7 -We will resume her home Lantus dosing to 60 units every morning and 80 units every afternoon -We will place on high-dose lispro correctional scale -Will hold her Glipizide and Metformin due to recent contrast and CHARLA -Pt is also on Lasix 40mg daily for swelling per her science liaison, Dr. Marie, currently on hold. Likely Acute Kidney Injury, present on admission -Cr of 1.39 on admission, recent Cr in March was 0.99. CHARLA likely due to dehydration and infection. -Continue treatment as above. Avoid nephrotoxic agents if possible. Hypovolemic hyponatremia, present on admission. resolved -Likely due to dehydration. Hypokalemia, present on admission. resolved -Potassium 3.4 on admission. -Replenished with 20 mEq PO Kclor, will continue to monitor History of CVA with residual right-sided deficits, as on admission. Stable -We will continue her full dose aspirin and atorvastatin -Continue her gabapentin for her neuropathy Essential Hypertension, present on admission. 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 She will need to come down on her oxygen needs. GI Prophylaxis: Not indicated VTE Prophylaxis: Sub-Q Heparin (Unfractionated) Resuscitation Status: CPR: Attempt Resuscitation Attending Statement The patient was seen and examined together with Dr. You on 10/09/16 and I have added additional information to the note above. Rk You DO Oct 09, 2016 06:42 Candace Ward DO Oct 14, 2016 21:35 Rk You DO Oct 09, 2016 06:42 Bowel regimen for constipation as needed Disposition: Patient will be here for at least 48 hours after her fever resolves. She still has fever she will be here another 72 hours. ADDENDUM: # GI Prophylaxis: Not indicated VTE Prophylaxis: Sub-Q Heparin (Unfractionated) Resuscitation Status: CPR: Attempt Resuscitation Rk You DO Oct 09, 2016 06:42
[2016-10-09] MEDS: 0.9% Sodium Chloride 1,000 ML IV SCH ×3 (10:20→20:59)
[2016-10-09] MEDS: Insulin GLARgine 100 Unit/mL Syringe SUBQ SCH ×2 (11:51→21:47)
--- NOTE | 2016-10-09 15:28 | NUR ---
Temperature and pain pt reports headache and mild chills. temp 37. c range. tylenol given for comfort and temperature effective in relieving headache. temperature stable at 37. C
--- NOTE | 2016-10-09 16:44 | NUR ---
Social Work: Multidisciplinary Rounds Pt discussed in am rounds. Pt is not medically stable for discharge at this time. SW has screened pt; pt meets criteria for SW assessment due to multiple providers involved in care. WOOD PATTERN MAKER will not be able to see the patient today due to high census. WOOD PATTERN MAKER will attempt to see the patient tomorrow. IVAN Kumar
[2016-10-10] VITALS (15 sets, daily range): BP systolic 97–124; BP diastolic 66–78; PULSE 85–100; RESP 18–24; O2SAT 64–96
[2016-10-10] MEDS: Heparin 5,000 Unit/mL Inj SUBQ SCH ×4 (00:35→23:54)
[2016-10-10] MEDS: Piper-Tazo 3.375 Gm/50 mL D5W Minibag Plus - Q8H over 4 hrs IV SCH ×8 (00:35→23:54)
[2016-10-10] MEDS: Sodium Chloride LOK Flush 10 mL Syringe IVFLUSH SCH ×4 (00:35→23:53)
--- NOTE | 2016-10-10 03:46 | NUR ---
activity Patient O2 sats low to mid 90's percent on High flow O2. Unable to ween off or reduce flow as patient would immediately desat. Denies any pain and or discomfort at this time. No concerns voiced by patient at this time.
[2016-10-10] MEDS: 0.9% Sodium Chloride 1,000 ML IV SCH ×4 (04:59→22:18)
[2016-10-10 05:49] LABS: BASOPHILS % (AUTO) 0.1 % (0-3); EOSINOPHILS % (AUTO) 2.1 % (0-5); MONOCYTES % (AUTO) 11.5 % (4-12); Mean Corpuscular Hemoglobin 27.6 pg (27.0-35.0); Mean Corpuscular Volume 85.7 fL (81-100); NEUTROPHILS % (AUTO) 68.5 % (40-74); Platelet Count 165 bil/L (150-400)
[2016-10-10] MEDS: Ascorbic Acid 500 mg Tablet PO SCH (09:18)
[2016-10-10] MEDS: Insulin GLARgine 100 Unit/mL Syringe SUBQ SCH ×2 (09:19→22:15)
[2016-10-10] MEDS: Insulin LISPRO 300 Unit/3 mL Inj SUBQ SCH ×4 (09:20→22:15)
--- NOTE | 2016-10-10 10:16 | NUR ---
Social Work: Initial Assessment/Multidisciplinary Rounds D: Per EMR review, pt is a 51 year old female admitted for pyleonephritis, fever, vomiting. Pt is Zamora BREONNA; pt has no LTC insurance or VA benefits. PCP is [facility]. NORemedios and DPOA is brother Yuri Nascimento [phone]. Advanced directives requested for chart. RA score not entered at this time. ROOFER ASSISTANT met with the patient and s/o at bedside. Sw role explained, contact info and d/c planning checklist provided. Pt and s/o live in [place]. Pt is I at baseline and uses no DME at baseline; pt is I with all of her own self care and ADLs. Pt has never had HH or skilled rehab. Pt continues to drive and expresses no concerns about her discharge home via POV. Pt is receptive to discharge planning and referrals if needs arise. Pt discussed in multidisciplinary Rounds. Pt remains on High flow o2. MD and Rn team working to wean o2 needs. Anticipate another 1-2 days at least. A: Pt who is I at baseline. P: Anticipate pt to discharge home via POV once medically stable; ROOFER ASSISTANT to continue to follow to assess pt's clinical progress and discharge needs. IVAN Kumar Addendum: 10/10/16 at 1021 by ADEN KWONG Amended: Links added.
[2016-10-10] MEDS ORDERED: levoFLOXacin 750 mg Tablet PO SCH (10:51)
[2016-10-10] MEDS: MethylprednisoLONE Sodium Succinate 40 mg/mL Inj IVPUSH SCH ×2 (11:51→21:02)
--- NOTE | 2016-10-10 12:06 | ABG ---
DateTimeAnalyzed 11:55:09 -_ pH ____7.409 - 7.350 7.450 pCO2 ___43.5__ -mmHg 35.0 45.0 pO2 ___52.0__ -mmHg 69.0 116 HCO3- ___27.5__ -mmol/L 22.0 26.0 ABE ____2.6__ -mmol/L tHb ____9.3__ -g/dL O2Hb ___86.4__ -% COHb ____1.2__ -% 1.5 MetHb ____0.0__ -% sO2 ___87.5__ -% FIO2 __100.0__ -% Drawn By RC - Date/Time Notified____ 12:05:00 -_ Spontaneous_RR 24 -b/min Liter_Flow ___50.00_ -L/min Oxygen Device 1 ____HHFNC - Notified By RC - Notified Whom VOLODYMYR GODINEZ, RN -___ K+ ____3.8__ -mmol/L tO2 ___11.4__ -Vol% Syd test _Positive -
[2016-10-10] MEDS ORDERED: MethylprednisoLONE Sodium Succinate 62.5 mg/mL 2 mL Inj IVPUSH ONE (15:50)
--- NOTE | 2016-10-10 18:32 | NUR ---
O2 Needs, Transfer to CCU 0940 - Spoke to Dr. You who said that he had been complaining of chest "discomfort" and said that it started a couple hours ago. He said he ordered a stat EKG and troponin labs and that today's goal was to wean her High flow O2 from 50L 100% to 40L 100%. Notified Respiratory Therapist (RT) Terese Calvillo 0951 - Discussed her care with Dr. Ward and the rest of the multidisciplinary care team during morning rounds. She also expressed the same goal of weaning her O2 today and documenting specific SpO2 results in a note. She said she also wants her to be started on IV steroids, and to place her on telemetry. 1216 - A stat ABG was ordered and RT was notified. It was obtained and the results were shown to Dr. Ward and Dr. You. 1315 - Noted throughout the day that with her Highflow of 50L and 100% her SpO2 was reading high 80s to low 90s and would instantly drop when talking or moving. MDs aware. 1436 - Paged Dr. You to confirm the plan of care following the ABG results. He said to keep her at her current O2 now and that he would consult with Dr. Ward. 1550 - Spoke to Dr. Ward about the plan and she said to keep her O2 settings at the current level, to give a one time dose of Solu-Medrol, and that she might have Pulmonology consulted. 170 - Spoke to Dr. Huang who came to assess her. He said he was moving her to CCU for Bipap therapy. 174 - Report given to EVA Fontana in CCU. 1814 - She was transferred at this time to CCU 2016 with the support of RT. Care continues.
--- NOTE | 2016-10-10 18:32 | NUR ---
CCU transfer: Pt transferred to CCU for increasing O2 needs. Currently on 15L nonrebreather, O2 sats 87-94%. RT at bedside, setting up Bipap machine. Pt a/o, moves all extremities, VSS, denies any pain. Care ongoing.
--- NOTE | 2016-10-10 19:16 | CONS ---
[address] [address] CONSULTATION REPORT PATIENT: MIKAL RANDALL : 1965 MR#: [id number] ADMIT: 10/07/2016 JOB ID: [id number] DATE OF SERVICE: 10/10/2016 REASON FOR CONSULTATION: Hypoxemia. REQUESTING PHYSICIAN: Candace Ward MD. HISTORY OF PRESENT ILLNESS: The patient is a 51-year-old, female admitted three days ago with complaints of fever and sweats. She said she felt very hot. Also was having sweats. Denied cough, sputum production, shortness of breath. Has had urinary tract infections in the past but had no dysuria, hematuria, or urinary frequency. She was quite surprised when told she had an urinary tract infection, as she has had them in the past and they were quite typical. The patient indicates she is not particularly short of breath. Has noted, however, over the three days of her hospitalization that when they take the oxygen off, she does note shortness of breath. No cough or sputum production. No chest pain, either pleuritic or otherwise. There has been no hemoptysis. No prior history of lung disease, though she states when she has a cold (upper respiratory tract infection), she often has to use an albuterol inhaler and on occasion has to use a steroid inhaler, usually using both for a few days and then not having to use them whatsoever. No prior history of pulmonary emboli. There has been no recent swelling in her legs. Has been taking diuretics given to her by her flight agent. Sees a flight agent because her creatinine runs about 1.1 in the face of her weight, hypertension, and diabetes. The patient had some nausea and vomiting. Vomiting was pretty frequent, going on for five days prior to admission. Usually consists of some food, but often was dry heaves. There was no hematemesis. No periumbilical pain. No pain radiating to her back. There was no diarrhea. PAST MEDICAL HISTORY: 1. Insulin-dependent diabetes mellitus. 2. CVA in 2014. 3. Hypertension. 4. Obstructive sleep apnea. The patient had a sleep study about a year ago. Does not know the results but was given CPAP. She believes it is CPAP 8. Uses this at night. 5. Smoking history. Remote smoker, quitting many years ago. MEDICATIONS: Include amitriptyline, amlodipine, aspirin, atorvastatin, fluoxetine, furosemide, gabapentin, glipizide, Glucophage, Humalog, hydrochlorothiazide, Lantus, lisinopril. ALLERGIES: SEAFOOD causes her throat to close. No problem with other iodine. OBJECTIVE: Temperature 37.7 with T-max being 37.9, pulse 98, respiratory rate low 20s. Blood pressure 124/78. O2 sat on FiO2 of 1 with a flow of 50 L/minute results in an O2 saturation of 93% at rest lying supine. With speaking, O2 sat drops to 88%. General appearance: Well-developed, well-nourished, morbidly obese female, lying supine in bed in no acute distress. Initially asleep. Woke easily. Was quite awake and alert. Carried on an appropriate conversation. Eyes: Conjunctivae are pink. Nose: Mild erythema. No edema. Throat: Good oral hygiene. Oropharynx was relatively normal in appearance, though Mallampati score was about 3. Neck: No tracheal tug. No use of accessory muscles. Chest: Fair breath sounds bilaterally with the patient in the supine position. Garrard in the anterior lung beverly fairly well. Somewhat diminished in the right lateral lung field. No use of accessory muscles. Heart: Regular rhythm. Heart tones normal. Abdomen soft. Nondistended. Some mild tenderness right upper quadrant. Liver not palpable. Bowel tones active. Extremities: Trace pretibial edema. No cyanosis or clubbing. Wearing blue acrylic nails. Oximeter is placed in the lateral position on the toe. Chest x-ray on admission, October 07, 2016, shows lungs clear. No effusions or infiltrates. CT angiogram of the chest with PE protocol of October 09, 2016, shows no evidence of pulmonary embolism. There was some bibasilar consolidation. LABORATORY VALUES: Show a white count of 7700, with a normal differential. Hemoglobin 8.9 and slowly decreasing. Platelet count 165,000 and stable. Sodium 136, potassium 3.8, chloride 98, CO2 is 24, BUN 36 and slowly climbing. Creatinine 1.55 and slowly climbing. Calcium 8.4. Troponin is 0.01. Blood work from yesterday shows normal AST of 29, ALT mildly elevated at 49, upper limits of normal being 32 units/L. UA shows large leukocyte esterase, many white cells, moderate bacteria. Growing Klebsiella and E. coli. Most recent arterial blood gases on FiO2 of 1.0 with liter flow of 50 L/minute by high-flow system shows a pO2 of 52, pCO2 of 43, pH 7.40. ASSESSMENT: Relative hypoxemia. The patient is rather comfortable. However, has a huge A-aDO2 gradient Suspect a big part of her problem is bibasilar consolidations associated with obesity. Both will lead to shunt or severe ventilation-perfusion mismatch. In addition there may be some slight decrease in ventilation resulting in severe hypoxemia. In addition, her CO2 though normal is not appropriate for the current condition. Would probably benefit more from positive end-expiratory pressure, rather than inspired oxygen. The high-flow system probably provides maybe 1.5, possibly 2 cm of PEEP at a flow of 50 L/minute, maybe even last in this obese female. I think the only reasonable way to try to get some end-expiratory pressure of a sufficient level would be trying BPAP. Whether she will tolerate it is unclear. However, certainly it is worth a try, as any further deterioration would probably result in the patient's intubation. Although the patient does not desire intubation, she is willing to undergo intubation, if it was a matter of preventing her . I do not think there is really much in terms of pulmonary infection. May have had some aspiration with the severe vomiting. May have resulted in some bibasilar inflammation, subsequent atelectasis. In addition, she is lying supine and with her weight will certainly be causing atelectasis in the dependent lung beverly. In addition, it sounds like she has a component of reactive airways disease. Probably very mild though she does note its recrudescence at times of a stress on her airways, notably respiratory tract infections. PLAN: 1. Consider transfer to the intensive care unit for a titration of BPAP. 2. DuoNeb q.4 h. while awake and q.2 h. p.r.n. dyspnea or wheezing. Thank you so much, Dr. Ward, for asking the Pulmonary Service to see this most delightful and engaging individual. ADDENDUM: On speaking to the patient, her weight has increased maybe 100 pounds in the past year since the sleep study was obtained. Suspect that her CPAP unit will need to be re-evaluated before discharge. May even be a candidate for BPAP setup. Will entertain that evaluation when we are considering discharge. Will follow her respiratory status closely along with you.
--- NOTE | 2016-10-10 19:45 | PCM.PNMED ---
Subjective Date of Service Oct 10, 2016 Subjective Overnight Events: Unable to titrate down highflow O2 overnight. Today, she is resting in bed comfortably and in no acute distress. She is still on 50L O2 highflow CPAP and does not feel short of breath except when talking. She is having some chest pressure, but not painful she says. She denies abdominal pain, back pain, nausea, vomiting, dysuria or hematuria. Exam Vital Signs Vital Sign - Last Date Time Temp Pulse Resp B/P Pulse Ox O2 Delivery O2 Flow Rate FiO2 10/10/16 04:49 87 20 96 HFNC 100 10/10/16 04:48 50 10/10/16 00:25 36.5 97/66 Intake and Output 10/09/16 10/09/16 10/10/16 Cumulative From/Thru 15:00 23:00 07:00 10/07/16 16:55 - 10/10/16 07:00 Intake Total 700 ml 942 ml 8830 ml Output Total 600 ml 650 ml 2700 ml Balance 100 ml 292 ml 6130 ml Intake Oral 700 ml 800 ml 2270 ml IV Total 142 ml 6560 ml Output Urine Total 600 ml 650 ml 2700 ml # Voids 3 # Bowel Movements 0 0 Exam General: Obese female who appears in no acute distress HEENT: Normocephalic, atraumatic. External ears without defect. PERRLA. Anicteric sclerae, moist conjunctivae. Oropharynx free of erythema and cobble stoning with mildly dry mucosa Neck: Supple with full range of motion. No jugular venous distension. No lymphadenopathy or thyromegaly. She has tenderness to palpation at the frontal, maxillary and ethmoid sinuses more on the left. Cardiovascular: Tachycardic with no murmurs, rubs, or gallops appreciated Pulmonary: Clear to auscultation bilaterally with no crackles, wheezes, or rhonchi. Normal respiratory effort with no use of accessory muscles. Currently on 50L highflow CPAP Abdomen: Obese abdomen, Bowel tones present and normoactive. Soft, nontender, nondistended. Extremities: No clubbing, cyanosis, edema, or lymphadenopathy appreciated. Skin: Normal temperature, turgor, and texture; no rash, ulcers, or subcutaneous nodules appreciated. Neurological: Cranial nerves grossly intact. Normal muscle strength, tone, and bulk. Psychiatric: Normal mood and affect. Alert and oriented to person, place, and time. Cooperative and pleasant Lab and Diagnostics Result Diagram: 10/10/16 0520 10/10/16 0520 Microbiology Item Value Date Time Blood Culture - Preliminary Resulted 10/07/16 1905 Blood Aerobic And Anaerobic Bottle No growth at 2 days; culture examined... Blood Culture - Preliminary Resulted 10/07/16 1855 Blood Aerobic And Anaerobic Bottle No growth at 2 days; culture examined... Urine Culture - Final Complete 10/07/16 1723 Urine,Clean Catch Pre-Plated Klebsiella Pneumoniae E. coli X-Rays, CTs and MRIs PROCEDURE: CT ABDOMEN AND PELVIS WITH CONTRAST ([id number]) IMPRESSION: Left perinephric stranding, of unknown etiology. No definite associated urolithiasis. A small calcification seen in the region of the distal left ureter is unchanged since 07/30/15. This could represent recently passed calculus , however cannot exclude pyelonephritis. Please correlate clinically and with urinalysis data. Elsewhere, no acute abnormality seen. PROCEDURE: X-RAY CHEST ONE VIEW ([id number]) IMPRESSION: No acute disease. PROCEDURE: US RENAL SONOGRAM INDICATIONS: Possible hydronephrosis nor obstruction TECHNIQUE: Real-time scanning was performed of the kidneys and bladder, with image documentation. COMPARISON: [facility] Ultrasound, US, ABDOMEN LTD, 07/04/2015, 8: 13. CT from 10/07/2016. FINDINGS: Kidneys: Kidneys are normal in size. Right kidney measures 10.1 cm long; left kidney measures 10.6 cm long. Right renal cortical thickness is 1.8 cm; left renal cortical thickness is 1.8 cm. Renal cortical echotexture is normal. No hydronephrosis or nephrolithiasis. No suspicious solid mass lesions. The spleen measures 15.1 x 11.1 x 5.2 CM with a 5 cm splenic cyst. Bladder: The patient's bladder was emptied prior to the examination. Miscellaneous: No free pelvic fluid. IMPRESSION: Sonographically normal kidneys. No sonographic correlate for left perinephric stranding seen on the recent CT. The bladder was emptied prior to the study limiting evaluation. Dictated by: Isac Banuelos M.D. on 10/08/2016 at 17:07 Approved by: Isac Banuelos M.D. on 10/08/2016 at 17:08 12-lead ECG 10/08/16 Normal Sinus Rhythm with HR 98 Additional Diagnostics Arterial blood gas on 20% FiO2 ox E mask reveals pH of 7.354 PCO2 44 PO2 55.6 bicarbonate 24.1 Assessment & Plan This is a 51-year-old morbidly obese woman with history of type II diabetes, hypertension, and CVA with residual right-sided deficits who originally presented to the ED from urgent care for evaluation of nausea vomiting with fever 4 days. Admitted to the hospitalist service for inpatient management of acute pyelonephritis and sepsis Acute hypoxemic respiratory failure, not present on admission, active CTA of chest PE protocol does not reveal any pulmonary emboli there is some possible bibasilar consolidation versus atelectasis on preliminary report. EKG was reviewed and shows normal sinus rhythm with a heart rate of 98. - Still on high flow oxygen therapy 50L with O2 sat in the low 90's. Unable to titrate down. ABG shows pO2 of 52 and pO2 of 44. Unsure if her body can continue to handle the respiratory demand and anticipate if needs increase, she can desaturate quickly. Consulted Dr. Huang and discussed the case with him who recommended transferring her into CCU and consider BIPAP at night. Also may consider IV lasix. - Troponin negative, repeats ordered q6h. -Repeat EKG for chest pressure to normal sinus rhythm, regular rate, no ST segment elevations - Currently holding fluids, net balance almost 6L up since admission. - Started Solumedrol 60 mg IV BID, Azithromycin 500 mg PO daily - Extra 65 mg solumedrol IV given in the afternoon Sepsis, present on admission. Active As demonstrated by fever, tachycardia, with urinary source of infection. Initial lactate was 1.4 - Continue IV zosyn Likely acute pyelonephritis, present on admission. Improved As demonstrated by her constitutional symptoms, left flank pain, new left perinephric stranding on CT. Urine cultures positive for both E. coli and Klebsiella pneumoniae -Continue IV Zosyn -Holding fluids for now as patient has net balance of almost 6L. -Blood cultures negative x 48 hours -Tylenol as needed for fevers, Zofran as needed for nausea Type II diabetes mellitus, insulin requiring, present on admission -Patient has historically difficult to control diabetes. -Hemoglobin A1c was 7.7 -Lantus dosing to increase morning dose to 70 units every morning and continue 80 units every afternoon -High-dose lispro correctional scale -Hold her Glipizide and Metformin due to recent contrast and CHARLA -Pt is also on Lasix 40mg daily for swelling per her catshovel driver, Dr. Marie, currently on hold. -May need to increase the patient's insulin requirements now that steroids have been started we will continue to monitor Likely Acute Kidney Injury, present on admission -Cr of 1.39 on admission, recent Cr in March was 0.99. CHARLA likely due to dehydration and infection. -Continue treatment as above. Avoid nephrotoxic agents if possible. Hypovolemic hyponatremia, present on admission. resolved -Likely due to dehydration. Hypokalemia, present on admission. resolved -Potassium 3.4 on admission. -Replenished with 20 mEq PO Kclor, will continue to monitor History of CVA with residual right-sided deficits, as on admission. Stable -We will continue her full dose aspirin and atorvastatin -Continue her gabapentin for her neuropathy Essential Hypertension, present on admission. 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 -We will continue patient's fluoxetine Insomnia, on admission -We will continue her amitriptyline and melatonin Disposition: Patient will be here for at least 2-3 days. She will need to come down on her oxygen needs. GI Prophylaxis: Not indicated VTE Prophylaxis: Sub-Q Heparin (Unfractionated) Resuscitation Status: CPR: Attempt Resuscitation Attending Statement The patient was seen and examined together with Dr. You on 10/10/2016 and I have added additional information to the note above. Rk You DO Oct 10, 2016 07:02 Candace Ward DO Oct 11, 2016 13:08
[2016-10-10] MEDS: Albuterol-Ipratropium 3 mL Inhalation Solution NEB SCH (20:30)
[2016-10-11] VITALS (10 sets, daily range): BP systolic 114–125; BP diastolic 61–83; PULSE 68–78; RESP 16–23; O2SAT 92–100
[2016-10-11 03:52] LABS: BASOPHILS % (AUTO) 0.2 % (0-3); EOSINOPHILS % (AUTO) 0.2 % (0-5); MONOCYTES % (AUTO) 2.6 % (4-12); Mean Corpuscular Hemoglobin 27.9 pg (27.0-35.0); Mean Corpuscular Volume 83.6 fL (81-100); NEUTROPHILS % (AUTO) 85.8 % (40-74); Platelet Count 176 bil/L (150-400)
--- NOTE | 2016-10-11 04:36 | ABG ---
DateTimeAnalyzed 04:30:00 -_ pH ____7.364 - 7.350 7.450 pCO2 ___44.5__ -mmHg 35.0 45.0 pO2 ___58.4__ -mmHg 69.0 116 HCO3- ___24.7__ -mmol/L 22.0 26.0 ABE ___-0.2__ -mmol/L -2.0 2.0 tHb ____9.8__ -g/dL O2Hb ___86.9__ -% COHb ____1.3__ -% MetHb ____0.3__ -% sO2 ___88.3__ -% FIO2 ___75.0__ -% Drawn By AF - Date/Time Notified____ 04:35:00 -_ Oxygen Device 1 ____BIPAP - Notified By AF - B 763 -mmHg tO2 ___12.1__ -Vol% OrderingPhysicianInitials bak - Syd test _Positive -
--- NOTE | 2016-10-11 06:41 | NUR ---
Resp Patient A&Ox4 and very pleasant this shift, remains on BiPAP 65% FIO2 09/11, sats in the mid 90's, patient desats to the 70%'s within 1-2 minutes without BiPAP, denies pain, up to [facility] on BiPAP without problem, uneventful shift, resting in bed at this time, no distress noted. Addendum: 10/11/16 at 0649 by JOEL TREJO RN Amended: Links added.
[2016-10-11] MEDS: Albuterol-Ipratropium 3 mL Inhalation Solution NEB SCH ×4 (08:30→20:39)
[2016-10-11] MEDS ORDERED: Insulin GLARgine 100 Unit/mL Syringe SUBQ SCH (08:30)
[2016-10-11] MEDS: Ascorbic Acid 500 mg Tablet PO SCH (08:30)
[2016-10-11] MEDS: Insulin LISPRO 300 Unit/3 mL Inj SUBQ SCH ×4 (09:10→21:10)
[2016-10-11] MEDS: Piper-Tazo 3.375 Gm/50 mL D5W Minibag Plus - Q8H over 4 hrs IV SCH ×4 (09:34→18:19)
[2016-10-11] MEDS: Heparin 5,000 Unit/mL Inj SUBQ SCH ×2 (09:37→18:20)
[2016-10-11] MEDS: MethylprednisoLONE Sodium Succinate 40 mg/mL Inj IVPUSH SCH ×2 (09:59→20:21)
[2016-10-11] MEDS: Sodium Chloride LOK Flush 10 mL Syringe IVFLUSH SCH ×2 (09:59→18:23)
[2016-10-11] MEDS: 0.9% Sodium Chloride 1,000 ML IV SCH ×2 (12:59→20:59)
--- NOTE | 2016-10-11 15:44 | NUR ---
Social Work: Multidisciplinary Rounds Pt discussed in am rounds. Pt is not medically stable for discharge at this time and now in CCU. Sw needs for discharge are unclear at this time. STREETCAR REPAIRER to continue to follow to assess for needs for d/c. IVAN Kumar
[2016-10-11] MEDS ORDERED: Insulin GLARgine 100 Unit/mL Syringe SUBQ ONE (16:00)
[2016-10-11] MEDS: Polyethylene Glycol (PEG) 17 Gm Powder PO PRN (18:41)
--- NOTE | 2016-10-11 20:14 | PROG NOTE ---
[address] [address] PROGRESS NOTE PATIENT: MIKAL RANDALL : 1965 MR#: [id number] ADMIT: 10/07/2016 JOB ID: [id number] DATE: 10/11/2016 PULMONARY FOLLOWUP NOTE: PROBLEM LIST: 1. Pneumonia. 2. Morbid obesity. 3. Diabetes mellitus. 4. Obstructive sleep apnea. 5. Reactive airways disease. SUBJECTIVE: Breathing more comfortably. Tolerating the BPAP mask reasonably well. No cough or sputum production. No chest pain, either pleuritic or otherwise. No abdominal pain. She is somewhat hungry and would like to try eating tonight. OBJECTIVE: Temperature 36.5, pulse 65-78, respiratory rate 16 to 23 on BiPAP with a rate of 16. O2 sat on an FiO2 of 65%, BPAP of 14/8 is 96% to 98%. I and O shows 1.9 L in, 1.2 L out. General appearance: Comfortable appearing. Speaking easily. Quite awake, alert, and appropriate with BPAP mask on. Chest: Decreased breath sounds in the upper lung beverly. Markedly decreased breath sounds in the lower lung field, with possibly a few crackles at the left lateral lower lung field. No use of accessory muscles. With BPAP of 14/8, delivered tidal volume is about 600 with a minute ventilation of 10.6 L. Heart: Somewhat distant tones. Heart tones seem normal. Abdomen: Soft. Bowel tones present. Extremities: Probably no pretibial edema, at most maybe trace. LABORATORY DATA: Shows a white count of 6500 with 85 polymorphonuclears, 10 lymphs, 2 monocytes. Hemoglobin 10, up from 8.9 yesterday. Platelet count 176,000. Sodium 132, potassium 4.2, chloride 95, CO2 is 22, BUN 39 and stable, creatinine 1.21 down from 1.55. Glucose 375. Calcium 8.8. Nasal swab for respiratory viral PCR panel is negative. ASSESSMENT: 1. Pulmonary infiltrates. Probable respiratory tract infection complicated by obesity, complicated by some element of reactive airways disease and maybe by a bit of aspiration. In any case, her oxygenation seems to have improved over today. We will let her try eating a little bit. Apparently she had a terrible time last night and again early this morning with significant desaturations, but her O2 saturation has increased significantly over the past 6-8 hours. Hopefully this portends improving pulmonary function with better oxygenation. Sats certainly seem to be better. BPAP is delivering good volumes with minimal pressures and patient tolerating it for the moment. However, hopefully the pulmonary process will gabbie over the next 24-48 hours as I doubt we can continue the BPAP for much more than another 24-48 hours continuously, maybe using it intermittently during the day and again at night in the near future. 2. Hyperglycemia. Certainly rainer with the institution of the prednisone. Does have underlying diabetes mellitus requiring insulin and it is not surprising that this is becoming the case with possible infection but certainly with the steroids. PLAN: 1. Continue present regimen. 2. Try having the patient take some oral nourishment utilizing OxyMask at maybe 14-15 L to see if we can keep a reasonable O2 sat, get her some nutrition, and get her back on the BPAP without incident. 3. Hypernatremia. When corrected for glucose, she is actually low normal. I do not think we need to go after that. 4. CHARLA. Improving creatinine. 5. Continue current IV Zosyn. 6. Continue nebulized DuoNeb as well as IV prednisone. 7. Continue her other medications. 8. Insulin as needed to control sugars.
[2016-10-11] MEDS: Insulin GLARgine 100 Unit/mL Syringe SUBQ SCH (21:09)
[2016-10-11] MEDS ORDERED: Insulin Human REGular 300 Unit/3 mL Inj IV ONE (23:55)
[2016-10-12] VITALS (12 sets, daily range): BP systolic 109–162; BP diastolic 56–78; PULSE 71–79; RESP 14–20; O2SAT 94–100
[2016-10-12] MEDS: Sodium Chloride LOK Flush 10 mL Syringe IVFLUSH SCH ×3 (00:21→16:30)
[2016-10-12] MEDS: Piper-Tazo 3.375 Gm/50 mL D5W Minibag Plus - Q8H over 4 hrs IV SCH ×6 (00:21→16:55)
[2016-10-12] MEDS: Heparin 5,000 Unit/mL Inj SUBQ SCH ×3 (00:22→16:55)
[2016-10-12] MEDS ORDERED: Dextrose 10% 250 ML IV PRN (02:40)
[2016-10-12] MEDS: Insulin Human REGular Inj 100 UNIT in 0.9% Sodium Chloride-Pha MIX 100 ML IV SCH ×3 (03:15→23:09)
[2016-10-12] MEDS: 0.9% Sodium Chloride 1,000 ML IV SCH ×3 (03:52→19:45)
[2016-10-12 04:24] LABS: EOSINOPHILS % (AUTO) 0 % (0-5); Mean Corpuscular Hemoglobin 28.1 pg (27.0-35.0); Mean Corpuscular Volume 84.9 fL (81-100); Platelet Count 199 bil/L (150-400)
--- NOTE | 2016-10-12 04:40 | NUR ---
resp oxymask/bipap, blood glucose came on shift with pt sitting at side of bed eating dinner and conversing with family on 15 liter oxymask, sats mid 90's, resp rate teens to low 20's, ls=decreased with faint rhonchi in bases, no sputum, pt brushed her teeth and washed face, pt placed back on bipap .65 fio2, 14/8 when back to bed and wanting to sleep, pt remained stable on bipap until 0430 when requesting a break, pt back on oxymask at 15 liters, sats 93-94%, resp rate= teens, pt alert and oriented, pt states she is feeling much better then yesterday, pt able to get up to bsc with one sba while on bipap to void, resp status remained stable when up to bsc, denies n/v denies cp, tele- sr, bp stable, afebrile at beginning of shift ls=962 per lab draw, aware, ordered hs insulin given, bg rechecked at approx 4177=115, 15 units regular insulin given iv, bg at 0200= 477, pt started on insulin gtt per non dka protocol, no dextrose source wanted per md orders, plan to get bg down to 150-200 then turn off insulin gtt, see ccu flow sheet, plan:continue to monitor bg/resp status, Addendum: 10/12/16 at 0641 by COLLINS CHRISTIE RN md in and updated on pt's bg still in low 400's and insulin gtt at 19 units per hour., pt a/o, pt states she feel slightly flushed --same way she always feels when hyperglycemic,
[2016-10-12 05:23] LABS: BASOPHILS % (AUTO) 0 % (0-3); MONOCYTES % (AUTO) 1 % (4-12); NEUTROPHILS % (AUTO) 90 % (40-74)
--- NOTE | 2016-10-12 06:11 | ABG ---
DateTimeAnalyzed 06:04:00 -_ pH ____7.413 - 7.350 7.450 pCO2 ___42.9__ -mmHg 35.0 45.0 pO2 ___71.6__ -mmHg 69.0 116 HCO3- ___26.8__ -mmol/L 22.0 26.0 ABE ____2.5__ -mmol/L -2.0 2.0 tHb ____9.8__ -g/dL O2Hb ___92.8__ -% COHb ____1.0__ -% MetHb ____0.4__ -% sO2 ___94.1__ -% FIO2 ___65.0__ -% PRVC 16 - CPAP ___14.0__ -cmH2O PEEP ____8.0__ -cmH2O Set_RR ___16.0__ -b/min Vt __450.0__ -L Drawn By MM - Date/Time Notified____ 06:10:00 -_ Spontaneous_RR ___20.0__ -b/min Oxygen Device 1 ____BIPAP - Notified By MM - Notified Whom _KUNEY,RN - B 761 -mmHg tO2 ___12.8__ -Vol% Syd test _Positive -
--- NOTE | 2016-10-12 06:12 | ABG ---
DateTimeAnalyzed 06:04:00 -_ pH ____7.413 - 7.350 7.450 pCO2 ___42.9__ -mmHg 35.0 45.0 pO2 ___71.6__ -mmHg 69.0 116 HCO3- ___26.8__ -mmol/L 22.0 26.0 ABE ____2.5__ -mmol/L -2.0 2.0 tHb ____9.8__ -g/dL O2Hb ___92.8__ -% COHb ____1.0__ -% MetHb ____0.4__ -% sO2 ___94.1__ -% FIO2 ___65.0__ -% PRVC 16 - CPAP ___14.0__ -cmH2O PEEP ____8.0__ -cmH2O Set_RR ___16.0__ -b/min Vt __450.0__ -L Drawn By MM - Date/Time Notified____ 06:10:00 -_ Spontaneous_RR ___20.0__ -b/min Oxygen Device 1 ____BIPAP - Notified By MM - Notified Whom KUNEY, HERLICKSON, RN - B 761 -mmHg tO2 ___12.8__ -Vol% Syd test _Positive -
--- NOTE | 2016-10-12 08:15 | PROG NOTE ---
[address] [address] PROGRESS NOTE PATIENT: MIKAL RANDALL : 1965 MR#: [id number] ADMIT: 10/07/2016 JOB ID: [id number] DATE: 10/12/2016 PROBLEM: 1. Pneumonia. 2. Morbid obesity. 3. Diabetes mellitus. 4. Obstructive sleep apnea. 5. Reactive airways disease. 6. Urinary tract infection. SUBJECTIVE: No particular pulmonary complaints. Breathing comfortably. No cough or sputum production. No chest pain. Complains of some very brief stabbing pain right lower abdominal quadrant. It last seconds. No radiation. Has occurred maybe four or five times last night starting about 4 a.m. this morning. Has not had a bowel movement for about 7, maybe 10 days. Usually has one daily. No underlying history of bowel disease. OBJECTIVE: Temperature 36.4, pulse 68 to 73, respiratory rate 15 to 18, blood pressure 116/61, O2 sat on an FiO2 of 0.65, EPAP of 09/11 shows an O2 sat of 97%. I and O shows 1.3 L in and 1.5 L out. General appearance: Comfortable appearing. No acute distress. Breathing easily. Speaking easily. Chest: Moderately decreased breath sounds in the upper lung beverly. Essentially absent breath sounds in the lower lung beverly. Heart tones are slightly diminished, but seem normal. Abdomen is soft. Nondistended. Nontender. No masses palpable. Bowel tones present. Extremities: No pretibial edema. LABORATORY DATA: Shows a white count of 9600 with 90 polymorphonuclears, no bands, 9 lymphocytes, 1 monocyte. Hemoglobin stable at 9.3. Platelet count 199,000. Sodium 133, potassium 5, chloride 94, CO2 is 25. BUN 50, creatinine 1.38. Glucose 448, calcium 8.8, albumin 3.1. Total bilirubin 0.2. AST normal at 16. ALT mildly elevated at 44, upper limits normal of being 32 units/L. Alkaline phos normal at 137. Arterial blood gases on BiPAP of 09/11 which delivers a tidal volume of about 450. FiO2 0.65 results in a pO2 71, a pCO2 42, pH is 7.41. ASSESSMENT: 1. Hypoxemic hypercarbic respiratory failure. Doing reasonably well. Reasonable tidal volumes with the expiratory positive airway pressure. She is moderately obese and lying down. Would like to see her getting up possibly in a chair and see how we do with a little activity. No real good evidence for pneumonia at this time. Do have the bibasilar opacities. Not sure whether this is atelectasis or not. Signs of infection which could very well be due to her urinary tract infection are abating. No particular wheezes. I think we can decrease the steroids especially as we are having a time with the elevated glucose now requiring an insulin drip. 2. Insulin-dependent diabetes mellitus. Sugars up in the 500 range. Currently on an insulin drip. Give a little fluids as it looks like she is getting behind on fluids and her oral intake has been curtailed. Add a little saline for some volume. 3. Abdominal pain. Very brief episodes of stabbing kind of pain. She has not had pain like this before. No prior history of bowel disease. Suspect it is probably related to constipation and immobility conspiring against bowel function. Will see if we can get her up a little bit and get her some laxatives. PLAN: 1. Decrease Solu-Medrol to 60 mg q.a.m. 2. Continue nebulized bronchodilators. 3. Saline at 80 mL an hour. 4. More aggressive use of MiraLAX and other laxatives. 5. Try to increase mobility, maybe have her up in chair today.
[2016-10-12] MEDS: Polyethylene Glycol (PEG) 17 Gm Powder PO PRN (08:21)
[2016-10-12] MEDS: Ascorbic Acid 500 mg Tablet PO SCH (08:21)
[2016-10-12] MEDS: MethylprednisoLONE Sodium Succinate 40 mg/mL Inj IVPUSH SCH (08:22)
[2016-10-12] MEDS: Albuterol-Ipratropium 3 mL Inhalation Solution NEB SCH ×4 (09:52→20:13)
--- NOTE | 2016-10-12 15:33 | DRSVH ---
[facility] [address] [place] [address] Echocardiogram Report Name: MIKAL RANDALL MStudy Date: 10/12/2016 Height: 66 in Hospital Exam Location: [facility] Weight: 322 lb Gender: Female BSA: 2.4 m2 : 1965 Age: 51 yrs BP: 124/58 mmHg Reason For Study: SOB Ordering Physician: Performed By: Carlos Rodríguez Referring Physician: MYNOR LOPEZ Interpretation Summary There is mild concentric left ventricular hypertrophy. The ejection fraction is estimated to be 60-65%. There are no obvious focal wall motion abnormalities noted but poor endocardial definition reduces the sensitivity for the detection of such. Assessment of diastolic parameters indicates normal left ventricular diastolic function and normal filling pressures. The right ventricle grossly appears normal in size with probable normal systolic function. Pulmonary artery pressures cannot be estimated because of the lack of a measurable TR jet velocity. The left atrium grossly appears normal in size. Right atrial size is normal. There is no significant valvular heart disease. The IVC is dilated (diameter is greater than 2.1 cm) and it collapses less than 50% with a sniff. This suggests a high right atrial pressure of 15 mm Hg. Procedure: A two-dimensional transthoracic echocardiogram with color flow and Doppler was performed. Parasternal images are fair; apical images are suboptimal. Patient was supine. There is no prior echocardiogram noted for this patient. The patient was in normal sinus rhythm during the exam. Left Ventricle: The left ventricle is normal in size. There is mild concentric left ventricular hypertrophy. The ejection fraction is estimated to be 60-65%. There are no obvious focal wall motion abnormalities noted but poor endocardial definition reduces the sensitivity for the detection of such. Assessment of diastolic parameters indicates normal left ventricular diastolic function and normal filling pressures. Right Ventricle: The right ventricle grossly appears normal in size with probable normal systolic function. Atria: The left atrium grossly appears normal in size. Right atrial size is normal. The interatrial septum is intact with no evidence for an atrial septal defect. Mitral Valve: The mitral valve is normal. There is no mitral regurgitation noted. Aortic Valve: The aortic valve is normal in structure and function. No aortic regurgitation is present. Tricuspid Valve: The tricuspid valve is not well visualized, but is grossly normal. Pulmonary artery pressures cannot be estimated because of the lack of a measurable TR jet velocity. Pulmonic Valve: The pulmonic valve is not well seen, but is grossly normal. There is a trace or physiologic amount of pulmonic regurgitation. There is no significant valvular heart disease. Great Vessels: The aortic root is normal size. The dimensions of the ascending aorta are normal. The pulmonary artery is normal size. The IVC is dilated (diameter is greater than 2.1 cm) and it collapses less than 50% with a sniff. This suggests a high right atrial pressure of 15 mm Hg. Pericardium/ Pleura There is no pericardial effusion. There is no pleural effusion. MMode/2D Measurements & Calculations LVIDd: 4.8 cm IVC diam: 2.2 cm RA long axis LVOT diam: 2.1 cm LVIDs: 2.9 cm AoV Opening FS: 38.6 % RA area EPSS: 0.20 cm Ao root diam IVSd: 1.1 cm : 17.1 cm LVPWd: 1.2 cm RA vol asc Aorta Diam : 48.0 ml RA Ao Arch Diam (Prox : 19.6 mm2 Trans): 3.0 cm LV hernandes. diameter/BSA LV sys. diameter/BSA (cm/m^2): 2.0 (cm/m^2): 1.2 Doppler Measurements & Calculations Ao V2 max MV E max bro MV E/A: 1.4 PA V2 max : 141.6 cm/sec : 102.3 cm/sec Med Peak E' Bro : 93.7 cm/sec Ao max P.0 mmHg MV A max bro PA mean PG Ao mean P.3 mmHg : 72.5 cm/sec E/E' med: 15.7 : 2.0 mmHg LVOT Max Bro Lat Peak E' Bro : 110.6 cm/sec E/E' lat: 9.3 HUGH(I,D): 2.8 cm E/e' average sev ratio: 0.83 MV dec time: 0.19 sec Ao V2 mean LV V1 max PG PA V2 mean : 100.0 cm/sec : 66.8 cm/sec Ao V2 VTI: 29.1 cmLV V1 VTI: 24.2 cm PA pr(Accel) : 36.2 mmHg HUGH(V,D): 2.6 cm2 HUGH indexed to BSA (cm^2/m^2): 1.1 Reading Physician:PM
--- NOTE | 2016-10-12 15:33 | PCM.PNMED ---
Subjective Date of Service Oct 11, 2016 Subjective Overnight - NONE. Today Patient was resting in bed, asleep with BIPAP in place in no acute distress. She denies chest pain, abdominal pain, nausea, vomiting. Only reports shortness of breath without BIPAP. Exam Vital Signs Vital Sign - Last Date Time Temp Pulse Resp B/P Pulse Ox O2 Delivery O2 Flow Rate FiO2 10/11/16 12:38 77 18 114/71 98 65 10/11/16 04:50 Supplement Oxygen 10/11/16 04:50 36.6 10/10/16 18:32 15.00 Intake and Output 10/10/16 10/10/16 10/11/16 Cumulative From/Thru 15:00 23:00 07:00 10/07/16 16:55 - 10/11/16 04:50 Intake Total 1050 ml 9880 ml Output Total 600 ml 3300 ml Balance 450 ml 6580 ml Intake Oral 1000 ml 3270 ml IV Total 50 ml 6610 ml Output Urine Total 600 ml 3300 ml # Voids 3 # Bowel Movements 0 Exam General: Obese female who appears in no acute distress HEENT: Normocephalic, atraumatic. External ears without defect. PERRLA. Anicteric sclerae, moist conjunctivae. Oropharynx free of erythema and cobble stoning with mildly dry mucosa Neck: Supple with full range of motion. No jugular venous distension. No lymphadenopathy or thyromegaly. She has tenderness to palpation at the frontal, maxillary and ethmoid sinuses more on the left. Cardiovascular: Tachycardic with no murmurs, rubs, or gallops appreciated Pulmonary: Clear to auscultation bilaterally with no crackles, wheezes, or rhonchi. Normal respiratory effort with no use of accessory muscles. Currently on 50L highflow BiPAP Abdomen: Obese abdomen, Bowel tones present and normoactive. Soft, nontender, nondistended. Extremities: No clubbing, cyanosis, edema, or lymphadenopathy appreciated. Skin: Normal temperature, turgor, and texture; no rash, ulcers, or subcutaneous nodules appreciated. Neurological: Cranial nerves grossly intact. Normal muscle strength, tone, and bulk. Psychiatric: Normal mood and affect. Alert and oriented to person, place, and time. Cooperative and pleasant IVs and Medications Medications Reviewed: Medications were reviewed in detail Lab and Diagnostics Result Diagram: 10/11/16 0335 10/11/16 0335 Microbiology Item Value Date Time Blood Culture - Preliminary Resulted 10/07/16 1905 Blood Aerobic And Anaerobic Bottle No growth at 2 days; culture examined... Blood Culture - Preliminary Resulted 10/07/16 1855 Blood Aerobic And Anaerobic Bottle No growth at 2 days; culture examined... Urine Culture - Final Complete 10/07/16 1723 Urine,Clean Catch Pre-Plated Klebsiella Pneumoniae E. coli X-Rays, CTs and MRIs PROCEDURE: CT ABDOMEN AND PELVIS WITH CONTRAST ([id number]) IMPRESSION: Left perinephric stranding, of unknown etiology. No definite associated urolithiasis. A small calcification seen in the region of the distal left ureter is unchanged since 07/30/15. This could represent recently passed calculus , however cannot exclude pyelonephritis. Please correlate clinically and with urinalysis data. Elsewhere, no acute abnormality seen. PROCEDURE: X-RAY CHEST ONE VIEW ([id number]) IMPRESSION: No acute disease. PROCEDURE: US RENAL SONOGRAM INDICATIONS: Possible hydronephrosis nor obstruction TECHNIQUE: Real-time scanning was performed of the kidneys and bladder, with image documentation. COMPARISON: Located Within [facility] Ultrasound, US, ABDOMEN LTD, 07/04/2015, 8: 13. CT from 10/07/2016. FINDINGS: Kidneys: Kidneys are normal in size. Right kidney measures 10.1 cm long; left kidney measures 10.6 cm long. Right renal cortical thickness is 1.8 cm; left renal cortical thickness is 1.8 cm. Renal cortical echotexture is normal. No hydronephrosis or nephrolithiasis. No suspicious solid mass lesions. The spleen measures 15.1 x 11.1 x 5.2 CM with a 5 cm splenic cyst. Bladder: The patient's bladder was emptied prior to the examination. Miscellaneous: No free pelvic fluid. IMPRESSION: Sonographically normal kidneys. No sonographic correlate for left perinephric stranding seen on the recent CT. The bladder was emptied prior to the study limiting evaluation. Dictated by: Isac Banuelos M.D. on 10/08/2016 at 17:07 Approved by: Isac Banuelos M.D. on 10/08/2016 at 17:08 12-lead ECG 10/08/16 Normal Sinus Rhythm with HR 98 Additional Diagnostics Arterial blood gas on 20% FiO2 ox E mask reveals pH of 7.354 PCO2 44 PO2 55.6 bicarbonate 24.1 Assessment & Plan This is a 51-year-old morbidly obese woman with history of type II diabetes, hypertension, and CVA with residual right-sided deficits who originally presented to the ED from urgent care for evaluation of nausea vomiting with fever 4 days. Admitted to the hospitalist service for inpatient management of acute pyelonephritis and sepsis. Acute hypoxemic respiratory failure, not present on admission, Active. - CTA of chest PE neg for PE as above. EKG was reviewed and normal sinus rhythm 98. - Still on high flow oxygen therapy 65L with O2 sat in the mid 90's. Unable to titrate down. ABG shows pO2 of 52 and pO2 of 44. Unsure if her body can continue to handle the respiratory demand and anticipate if needs increase, she can desaturate quickly. - Consulted Dr. Huang - Continue BIPAP, - Troponin x3 negative. - Holding IV fluids. - Solumedrol 60 mg IV BID, Azithromycin 500 mg PO daily. - Increased dose of Lantus, If unable to control Blood sugar will consider insulin ggt. Sepsis, present on admission. Active. As demonstrated by fever, tachycardia, with urinary source of infection. Initial lactate was 1.4 - Continue IV zosyn Likely acute pyelonephritis, present on admission. Improved. As demonstrated by her constitutional symptoms, left flank pain, new left perinephric stranding on CT. - Urine cultures positive for both E. coli and Klebsiella p neumoniae - Continue IV Zosyn - Holding fluids for now as patient has net balance of almost 6L. - Blood cultures negative x 48 hours - Tylenol as needed for fevers, Zofran as needed for nausea Type II diabetes mellitus, insulin requiring, present on admission. - Patient has historically difficult to control diabetes and is currently on IV steroids. - Hemoglobin A1c was 7.7 - Lantus dosing to increase morning dose to 70 units every morning and continue 80 units every afternoon, 20 BID ordered one time 10/11/16. 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 Marie, currently on hold. Likely Acute Kidney Injury, present on admission. - Cr of 1.39 on admission, recent Cr in March was 0.99. CHARLA likely due to dehydration and infection. - Continue treatment as above. Avoid nephrotoxic agents if possible. Hypovolemic hyponatremia, present on admission. Resolved. - Likely due to dehydration. Hypokalemia, present on admission. Resolved. - Potassium 3.4 on admission. Currently 4.2 History of CVA with residual right-sided deficits, as on admission. Stable. - We will continue her full dose aspirin and atorvastatin - Continue her gabapentin for her neuropathy Essential Hypertension, present on admission. Stable. -We will continue patient's home medications: amlodipine -Hold hydrochlorothiazide and lisinopril until acute kidney injury resolves Chronic mood disorders, resonant on admission. -We will continue patient's fluoxetine Insomnia, on admission. -We will continue her amitriptyline and melatonin Acetaminophen for mild pain when necessary. Bowel regimen Senna and MiraLAX scheduled and PRN. Zofran when necessary for nausea and vomiting. SubQ heparin for now. SCDs in place. High-risk medications: NONE. Disposition: Patient will be here for at least 2-3 days. She will need to come down on her oxygen needs. Pain Evaluation: Adequate Pain Control GI Prophylaxis: Not indicated VTE Prophylaxis: Sub-Q Heparin (Unfractionated) Resuscitation Status: CPR: Attempt Resuscitation Attending Statement The patient was seen and examined together with Dr. Lopez on 10/11/16 and I have added additional information to the note above. MYNOR LOPEZ DO Oct 11, 2016 16:07 Candace Ward DO Oct 14, 2016 16:18
--- NOTE | 2016-10-12 15:36 | PCM.PNMED ---
Subjective Date of Service Oct 12, 2016 Subjective Overnight Events: Patient started on insulin drip due to blood sugars in 400's. Today, Mrs. Reese is resting comfortably in bed and in no acute distress. She is currently on BiPAP and not feeling short of breath. She has been switched also to the oxy-mask 15L and doesn't feel short of breath on it. She denies any chest pain, fevers, chills, nausea, vomiting and abdominal pain. She has been getting up to use the bedside commode. Exam Vital Signs Vital Sign - Last Date Time Temp Pulse Resp B/P Pulse Ox O2 Delivery O2 Flow Rate FiO2 10/12/16 05:17 70 18 115/58 96 65 10/12/16 04:00 36.4 BiPAP 10/11/16 20:00 15.00 Intake and Output 10/11/16 10/11/16 10/12/16 Cumulative From/Thru 15:00 23:00 07:00 10/07/16 16:55 - 10/12/16 06:01 Intake Total 865 ml 514 ml 670 ml 57434 ml Output Total 700 ml 850 ml 900 ml 5750 ml Balance 165 ml -336 ml -230 ml 6179 ml Intake Oral 750 ml 450 ml 480 ml 4950 ml IV Total 115 ml 64 ml 190 ml 6979 ml Output Urine Total 700 ml 850 ml 900 ml 5750 ml # Voids 2 5 # Bowel Movements 0 0 0 0 Exam General: Obese female who appears in no acute distress HEENT: Normocephalic, atraumatic. External ears without defect. Anicteric sclerae, moist conjunctivae. Neck: Supple with full range of motion. No jugular venous distension. No lymphadenopathy or thyromegaly. No sinus tenderness Cardiovascular: Tachycardic with no murmurs, rubs, or gallops appreciated Pulmonary: Clear to auscultation bilaterally with no crackles, wheezes, or rhonchi. Normal respiratory effort with no use of accessory muscles. Currently on Bipap Abdomen: Obese abdomen, Bowel tones present and normoactive. Soft, nontender, nondistended. Extremities: No clubbing, cyanosis, edema, or lymphadenopathy appreciated. Skin: Normal temperature, turgor, and texture; no rash, ulcers, or subcutaneous nodules appreciated. Neurological: Cranial nerves grossly intact. Normal muscle strength, tone, and bulk. Psychiatric: Normal mood and affect. Alert and oriented to person, place, and time. Cooperative and pleasant Lab and Diagnostics Item Value Date Time Procalcitonin 0.12 ng/mL H 10/12/16 034 Glucose Level 555 mg/dL *H 10/11/16 1857 Glucose Level 448 mg/dL H 10/12/16 034 Result Diagram: 10/12/16 0340 10/12/16339 Microbiology Item Value Date Time Blood Culture - Preliminary Resulted 10/07/16 1905 Blood Aerobic And Anaerobic Bottle No growth at 2 days; culture examined... Blood Culture - Preliminary Resulted 10/07/16 1855 Blood Aerobic And Anaerobic Bottle No growth at 2 days; culture examined... Urine Culture - Final Complete 10/07/16 1723 Urine,Clean Catch Pre-Plated Klebsiella Pneumoniae E. coli X-Rays, CTs and MRIs PROCEDURE: CT ABDOMEN AND PELVIS WITH CONTRAST ([id number]) IMPRESSION: Left perinephric stranding, of unknown etiology. No definite associated urolithiasis. A small calcification seen in the region of the distal left ureter is unchanged since 07/30/15. This could represent recently passed calculus , however cannot exclude pyelonephritis. Please correlate clinically and with urinalysis data. Elsewhere, no acute abnormality seen. PROCEDURE: X-RAY CHEST ONE VIEW ([id number]) IMPRESSION: No acute disease. PROCEDURE: US RENAL SONOGRAM INDICATIONS: Possible hydronephrosis nor obstruction TECHNIQUE: Real-time scanning was performed of the kidneys and bladder, with image documentation. COMPARISON: [facility] Ultrasound, US, [facility], 07/04/2015, 8: 13. CT from 10/07/2016. FINDINGS: Kidneys: Kidneys are normal in size. Right kidney measures 10.1 cm long; left kidney measures 10.6 cm long. Right renal cortical thickness is 1.8 cm; left renal cortical thickness is 1.8 cm. Renal cortical echotexture is normal. No hydronephrosis or nephrolithiasis. No suspicious solid mass lesions. The spleen measures 15.1 x 11.1 x 5.2 CM with a 5 cm splenic cyst. Bladder: The patient's bladder was emptied prior to the examination. Miscellaneous: No free pelvic fluid. IMPRESSION: Sonographically normal kidneys. No sonographic correlate for left perinephric stranding seen on the recent CT. The bladder was emptied prior to the study limiting evaluation. Dictated by: Isac Banuelos M.D. on 10/08/2016 at 17:07 Approved by: Isac Banuelos M.D. on 10/08/2016 at 17:08 12-lead ECG 10/08/16 Normal Sinus Rhythm with HR 98 Additional Diagnostics Arterial blood gas on 20% FiO2 ox E mask reveals pH of 7.354 PCO2 44 PO2 55.6 bicarbonate 24.1 Assessment & Plan This is a 51-year-old morbidly obese woman with history of type II diabetes, hypertension, and CVA with residual right-sided deficits who originally presented to the ED from urgent care for evaluation of nausea vomiting with fever 4 days. Admitted to the hospitalist service for inpatient management of acute pyelonephritis and sepsis Acute hypoxemic respiratory failure, not present on admission, active CTA of chest PE protocol does not reveal any pulmonary emboli there is some possible bibasilar consolidation. - Currently on bipap and tolerating well. ABG as above. Will try to titrate down as tolerated. - Started Solumedrol 60 mg IV BID, Azithromycin 500 mg PO daily - Echocardiogram scheduled 10/12/16 - Currently on IV zosyn and azithromycin for possible aspiration pneumonia. Likely acute pyelonephritis, present on admission. Improved As demonstrated by her constitutional symptoms, left flank pain, new left perinephric stranding on CT. Urine cultures positive for both E. coli and Klebsiella pneumoniae -Continue IV Zosyn -Blood cultures negative since 10/07/16 -Tylenol as needed for fevers, Zofran as needed for nausea Type II diabetes mellitus, insulin requiring, present on admission -Patient has historically difficult to control diabetes. -Hemoglobin A1c was 7.7 -Currently on insulin drip and Stopped Lantus due to high blood sugars into 500' s. Likely uncontrolled due to excess steroid use. -Hold her Glipizide and Metformin due to recent contrast and CHARLA Likely Acute Kidney Injury, present on admission -Cr of 1.39 on admission, recent Cr in March was 0.99. CHARLA likely due to dehydration and infection. -Continue treatment as above. Avoid nephrotoxic agents if possible. Sepsis, present on admission. Resolved As demonstrated by fever, tachycardia, with urinary source of infection. Initial lactate was 1.4 Hypovolemic hyponatremia, present on admission. resolved -Likely due to dehydration. Hypokalemia, present on admission. resolved -Potassium 3.4 on admission. -Replenished with 20 mEq PO Kclor, will continue to monitor History of CVA with residual right-sided deficits, as on admission. Stable -We will continue her full dose aspirin and atorvastatin -Continue her gabapentin for her neuropathy Essential Hypertension, present on admission. 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 -We will continue patient's fluoxetine Insomnia, on admission -We will continue her amitriptyline and melatonin Disposition: Patient will be here for at least 2-3 days. She will need to come down on her oxygen needs. GI Prophylaxis: Not indicated VTE Prophylaxis: Sub-Q Heparin (Unfractionated) Resuscitation Status: CPR: Attempt Resuscitation Attending Statement The patient was seen and examined together with Dr. You on 10/12/2016 and I agree with the history, exam and plan as outlined in the note above. . Rk You DO Oct 12, 2016 06:24 Jim Fraire MD Oct 16, 2016 08:11
--- NOTE | 2016-10-12 16:49 | DRSVH ---
PROCEDURE: X-RAY CHEST ONE VIEW, PORTABLE ([id number]) INDICATIONS: respiratory failure TECHNIQUE: One view of the chest was acquired. COMPARISON: [facility], CT, CT ANGIO CHEST PE, 10/09/2016, 3:36. [facility], CR, XR CHEST 1VW, 10/07/2016, 17:09. FINDINGS: Surgical changes and devices: None. Lungs and pleura: No pleural effusions or pneumothorax. Bibasal consolidation noted represent atelec tasis versus pneumonia. Mediastinum: Mediastinal contours appear normal. Heart size is normal. Bones and chest wall: No suspicious bony lesions. Overlying soft tissues appear unremarkable. IMPRESSION: Bibasilar opacities compatible atelectasis versus pneumonia. Please correlate with clinic al and laboratory data. Dictated by: Eda Freeman MD, PhD on 10/12/2016 at 16:46 Approved by: Eda Freeman MD, PhD on 10/12/2016 at 16:47
--- NOTE | 2016-10-12 18:48 | NUR ---
BIPAP/activity/BM Patient continues to be on BIPAP at 65%, when on oxymask at 15L this morning, pt desats to 80s. Up to [facility] SBA with no SOB or dizziness, turning independently in bed. Insulin gtt per order and titrated per protocol. Frequent rounding and patient care continues. Pt able to have large BM this AM in [facility].
[2016-10-13] VITALS (12 sets, daily range): BP systolic 101–143; BP diastolic 51–71; PULSE 68–82; RESP 14–23; O2SAT 94–100
[2016-10-13] MEDS: Sodium Chloride LOK Flush 10 mL Syringe IVFLUSH SCH ×3 (00:09→17:44)
[2016-10-13] MEDS: Heparin 5,000 Unit/mL Inj SUBQ SCH ×3 (00:09→17:55)
[2016-10-13] MEDS: Piper-Tazo 3.375 Gm/50 mL D5W Minibag Plus - Q8H over 4 hrs IV SCH ×6 (00:09→17:44)
--- NOTE | 2016-10-13 00:38 | NUR ---
resp status, pt a/o times three, dillon, able to get to bsc with one sba while on bipap--resp status remains stable with activity, steady on her feet, pt dangling on side of bed during evening portion of shift for approx one hour while on 15 liters o2 per oxymask, sats = 94%, resp rate in teens, pt able to brush teeth, wash face and get linens changed, tolerated activity, sob with exertion, pt placed back on bipap when back to bed at .65 fio2, 09/11, hob up, ls- cl/decreased t/o, resp rate=teens, sats 97-99%, denies n/v denies cp, tele- sr, bp stable, afebrile, bg in low to mid 100's, insulin gtt per non dka protocol, see ccu flow sheet, plan:resp support, bg management,
[2016-10-13 03:30] LABS: Mean Corpuscular Hemoglobin 27.7 pg (27.0-35.0); Mean Corpuscular Volume 84.3 fL (81-100)
--- NOTE | 2016-10-13 06:01 | ABG ---
DateTimeAnalyzed 05:55:00 -_ pH ____7.418 - 7.350 7.450 pCO2 ___43.2__ -mmHg 35.0 45.0 pO2 ___72.7__ -mmHg 69.0 116 HCO3- ___27.4__ -mmol/L 22.0 26.0 ABE ____3.1__ -mmol/L -2.0 2.0 tHb ____9.4__ -g/dL O2Hb ___93.0__ -% COHb ____1.0__ -% MetHb ____0.7__ -% sO2 ___94.6__ -% FIO2 ___65.0__ -% Drawn By AF - Date/Time Notified____ 06:00:00 -_ Oxygen Device 1 ____BIPAP - Notified By AF - B 758 -mmHg tO2 ___12.3__ -Vol% Syd test _Positive -
[2016-10-13 07:44] LABS: BASOPHILS % (AUTO) 0.1 % (0-3); EOSINOPHILS % (AUTO) 0 % (0-5); MONOCYTES % (AUTO) 4.7 % (4-12); NEUTROPHILS % (AUTO) 74.3 % (40-74)
[2016-10-13] MEDS: Albuterol-Ipratropium 3 mL Inhalation Solution NEB SCH ×4 (08:30→20:43)
[2016-10-13] MEDS: MethylprednisoLONE Sodium Succinate 40 mg/mL Inj IVPUSH SCH (09:04)
[2016-10-13] MEDS: Ascorbic Acid 500 mg Tablet PO SCH (09:06)
[2016-10-13] MEDS: 0.9% Sodium Chloride 1,000 ML IV SCH ×2 (09:09→20:30)
--- NOTE | 2016-10-13 11:50 | PCM.PNMED ---
Subjective Date of Service Oct 13, 2016 Subjective Remained on BiPAP overnight, tolerated well, no cough, shortness of breath, lightheadedness, dizziness, or chest pain reported. Was able to transition over 15 L oxygen mask for short periods of time, able to perform oral care without desaturation. Blood sugar returned to near normal and insulin drip was discontinued. Exam Vital Signs Vital Sign - Last Date Time Temp Pulse Resp B/P Pulse Ox O2 Delivery O2 Flow Rate FiO2 10/13/16 08:31 73 17 110/59 100 65 10/13/16 08:00 36.3 BiPAP 10/12/16 20:00 15.00 Intake and Output 10/12/16 10/12/16 10/13/16 Cumulative From/Thru 15:00 23:00 07:00 10/07/16 16:55 - 10/13/16 05:47 Intake Total 1147 ml 1051 ml 02677 ml Output Total 800 ml 900 ml 7450 ml Balance 347 ml 151 ml 6677 ml Intake Oral 120 ml 5070 ml IV Total 1147 ml 931 ml 9057 ml Output Urine Total 800 ml 900 ml 7450 ml # Voids 5 # Bowel Movements 1 0 1 Exam General: Laying in bed, no apparent distress. BiPAP in place, morbidly obese HEENT: Normocephalic, atraumatic, EOMI grossly, BiPAP in place, mucous membranes moist, neck supple without lymphadenopathy, no JVD, PERRLA. Cardiovascular: Regular rate and rhythm, no clicks murmurs rubs, peripheral pulses 2/4 equal bilaterally Pulmonary: Clear to auscultation bilaterally, no W/R/R. Abdominal: Soft to palpation, bowel sounds present 4, no hepatosplenomegaly. Negative rebound. Extremities: No edema appreciated. No tenderness, asymmetry. Neuro: Neurologically grossly intact, strength is equal bilaterally upper and lower extremities. MSK: Able to move extremities on their own volition, strength 5 out of 5 equal bilaterally to upper and lower extremities. Psychiatric: Normal mood and affect. Alert and oriented to person, place, and time. Cooperative and pleasant IVs and Medications IV Fluids Cumulative 6.6 L since admission, +275 mL past 24 hours, 1.6 L urine output in last 24 hours Medications Reviewed: Medications were reviewed in detail Lab and Diagnostics Result Diagram: 10/13/16 0300 10/13/16 0300 Microbiology Item Value Date Time Blood Culture - Preliminary Resulted 10/07/16 1905 Blood Aerobic And Anaerobic Bottle No growth at 2 days; culture examined... Blood Culture - Preliminary Resulted 10/07/16 1855 Blood Aerobic And Anaerobic Bottle No growth at 2 days; culture examined... Urine Culture - Final Complete 10/07/16 1723 Urine,Clean Catch Pre-Plated Klebsiella Pneumoniae E. coli X-Rays, CTs and MRIs PROCEDURE: CT ABDOMEN AND PELVIS WITH CONTRAST ([id number]) IMPRESSION: Left perinephric stranding, of unknown etiology. No definite associated urolithiasis. A small calcification seen in the region of the distal left ureter is unchanged since 07/30/15. This could represent recently passed calculus , however cannot exclude pyelonephritis. Please correlate clinically and with urinalysis data. Elsewhere, no acute abnormality seen. PROCEDURE: X-RAY CHEST ONE VIEW ([id number]) IMPRESSION: No acute disease. PROCEDURE: US RENAL SONOGRAM INDICATIONS: Possible hydronephrosis nor obstruction TECHNIQUE: Real-time scanning was performed of the kidneys and bladder, with image documentation. COMPARISON: [facility] Ultrasound, US, [facility], 07/04/2015, 8: 13. CT from 10/07/2016. FINDINGS: Kidneys: Kidneys are normal in size. Right kidney measures 10.1 cm long; left kidney measures 10.6 cm long. Right renal cortical thickness is 1.8 cm; left renal cortical thickness is 1.8 cm. Renal cortical echotexture is normal. No hydronephrosis or nephrolithiasis. No suspicious solid mass lesions. The spleen measures 15.1 x 11.1 x 5.2 CM with a 5 cm splenic cyst. Bladder: The patient's bladder was emptied prior to the examination. Miscellaneous: No free pelvic fluid. IMPRESSION: Sonographically normal kidneys. No sonographic correlate for left perinephric stranding seen on the recent CT. The bladder was emptied prior to the study limiting evaluation. Dictated by: Isac Banuelos M.D. on 10/08/2016 at 17:07 Approved by: Isac Banuelos M.D. on 10/08/2016 at 17:08 12-lead ECG 10/08/16 Normal Sinus Rhythm with HR 98 Additional Diagnostics Arterial blood gas on 20% FiO2 ox E mask reveals pH of 7.354 PCO2 44 PO2 55.6 bicarbonate 24.1 Venous blood gas 10/13/2016 Ph 7.418, PCO2 43.2, PaO2 72.7, bicarbonate 27.4 Assessment & Plan 51-year-old morbidly obese woman hypertension, type 2 diabetes, history of CVA, admitted for sepsis secondary to pyelonephritis subsequently developed acute hypoxic respiratory failure, transferred to the ICU for noninvasive ventilation. Hospital day 7, ICU day 4, BiPAP Day 4. Acute hypoxemic respiratory failure, not present on admission, active Hospital day 3 developed hypoxemia, CT of the chest negative for pulmonary embolism, consolidation possibly representing aspiration pneumonia, longtime smoker possible heralding COPD exacerbation Echocardiogram mild concentric left ventricular hypertrophy with EF 60-65, negative for signs of heart failure. Low procalcitonin, no increased white count Keep on BiPAP, continue to attempt wean to oximetry mask Solu-Medrol 60 mg daily with intention to taper. Completed 5 day course of azithromycin Currently on IV Zosyn possible aspiration and urinary tract infection treatment , see below. Continue nebulizers, DuoNeb's every 4 hours while awake Recommend formal PFT as outpatient Anticipate discharge home on oxygen, when appropriately weaned and stable. Acute pyelonephritis, POA, improved Evidenced by constitutional symptoms, left flank pain, perinephric stranding on CT, urine culture positive for Escherichia coli and Klebsiella pneumoniae Continue IV Zosyn Blood cultures remain negative Type II diabetes mellitus, requiring insulin drip, present on admission, improved Uncontrolled on admission, hemoglobin A1c 7.7. Significantly elevated blood sugars with administration of Solu-Medrol. Patient required 165 units of insulin in 24 hours before insulin drip was stopped Ordering diabetic diet, Glucerna, discussed with dietitian and primary team. Starting medium dose correctional insulin Additional glucose/insulin management per primary team All other problems chronic and stable managed by primary team Based on increased oxygen demands, continued need for BiPAP, anticipate 2-3 days in ICU. GI prophylaxis not indicated DVT prophylaxis subcutaneous heparin Pain management as needed Patient remains full code Pain Evaluation: Adequate Pain Control GI Prophylaxis: Not indicated VTE Prophylaxis: Sub-Q Heparin (Unfractionated) Resuscitation Status: CPR: Attempt Resuscitation Attending Statement I have seen and examined this patient with the resident physician. Vital signs , labs, imaging have been reviewed. I agree with the assessment and plan above. Please refer to my separately dictated progress note for any modifications to above. Ana M Phoenix M.D. Pulmonary and Critical Care medicine Pager [phone] Flaquito Blevins DO Oct 13, 2016 11:50 Ana M Phoenix MD Oct 14, 2016 07:26 Resuscitation Status: CPR: Attempt Resuscitation Flaquito Blevins DO Oct 13, 2016 11:50
--- NOTE | 2016-10-13 13:08 | PROG NOTE ---
[address] [address] PROGRESS NOTE PATIENT: MIKAL RANDALL : 1965 MR#: [id number] ADMIT: 10/07/2016 JOB ID: [id number] DATE: 10/13/2016 PULMONARY CRITICAL CARE PROGRESS NOTE: The patient is a 51-year-old woman with morbid obesity, admitted with Klebsiella and E. coli urinary tract infection and sepsis, complicated by hypoxic respiratory failure, in the ICU on BiPAP. The patient was seen and evaluated with resident physician, Flaquito Blevins. Please refer to his separate detailed note for complete information. INTERVAL HISTORY: She is on BiPAP overnight and 15 L OxyMask this morning which is an improvement compared to high-flow oxygen yesterday. REVIEW OF SYSTEMS: Denies fevers, chills, cough, sputum, chest pain, nausea or vomiting. PHYSICAL EXAMINATION: Vital signs reviewed. Notable for FiO2 65% on BiPAP alternating with 15 L OxyMask. She is morbidly obese. Chest is clear anteriorly but she has basilar crackles bilaterally. LABORATORIES: Reviewed. Notable for creatinine down to 1. Procalcitonin 0.12. IMAGING: CT of the chest and chest x-ray were both reviewed. Chest x-ray actually shows a band of atelectasis in the left lung. CT angio shows basilar atelectasis bilaterally and multiple lobes which could be aspiration pneumonitis versus pneumonia. ASSESSMENT AND RECOMMENDATIONS: 1. Acute hypoxic respiratory failure, on bi-level positive airway pressure. 2. Severe sepsis. 3. Klebsiella and Escherichia coli urinary tract infection/pyelonephritis. 4. Acute kidney injury--improved. 5. Morbid obesity. 6. Aspiration pneumonitis. This 51-year-old woman has a distant history of 20 pack years of smoking but no prior issues with COPD, asthma except for occasional bronchitis. She presented with a Klebsiella/E. coli pyelonephritis which improved with antibiotics but developed hypoxia few days ago which improved on BiPAP alternating with high-flow. It appears her oxygenation is improved compared to a couple of days ago, but she is still requiring significantly high FiO2. Procalcitonin is negative so I do not think she has a pneumonia but she could have aspiration pneumonitis based on her CT findings. Also, with her morbid obesity, I suspect atelectasis is playing a bigger part as well. I recommend incentive spirometry regularly and explained to the patient how to do this. She is on Zosyn which should more than adequately cover any respiratory infectious component. She is also getting Solu-Medrol 60 mg IV which should cover for reactive airway syndrome. I encouraged nursing staff to get her up and about since physical therapy does not seem necessary based on her activity level. She is getting appropriate DVT prophylaxis, and GI prophylaxis is not indicated. Blood sugars are being managed with insulin. Critical care time is 45 minutes.
[2016-10-13] MEDS: Insulin Human REGular 300 Unit/3 mL Inj SUBQ SCH ×2 (14:03→20:36)
--- NOTE | 2016-10-13 15:25 | PCM.PNMED ---
Subjective Date of Service Oct 13, 2016 Subjective Overnight Events: Today, Mrs. Reese is resting comfortably in bed and in no acute distress. She is currently on BiPAP and not feeling short of breath as per her usual. She denies any chest pain, fevers, chills, nausea, vomiting and abdominal pain. She has been getting up to use the bedside commode. Exam Vital Signs Vital Sign - Last Date Time Temp Pulse Resp B/P Pulse Ox O2 Delivery O2 Flow Rate FiO2 10/13/16 04:16 36.4 68 14 101/59 97 BiPAP 65 10/12/16 20:00 15.00 Intake and Output 10/12/16 10/12/16 10/13/16 Cumulative From/Thru 15:00 23:00 07:00 10/07/16 16:55 - 10/13/16 05:47 Intake Total 1147 ml 1051 ml 31781 ml Output Total 800 ml 900 ml 7450 ml Balance 347 ml 151 ml 6677 ml Intake Oral 120 ml 5070 ml IV Total 1147 ml 931 ml 9057 ml Output Urine Total 800 ml 900 ml 7450 ml # Voids 5 # Bowel Movements 1 0 1 Exam General: Obese female who appears in no acute distress HEENT: Normocephalic, atraumatic. External ears without defect. Anicteric sclerae, moist conjunctivae. Neck: Supple with full range of motion. No jugular venous distension. No lymphadenopathy or thyromegaly. No sinus tenderness Cardiovascular: Tachycardic with no murmurs, rubs, or gallops appreciated Pulmonary: Clear to auscultation bilaterally with no crackles, wheezes, or rhonchi. Normal respiratory effort with no use of accessory muscles. Currently on Bipap Abdomen: Obese abdomen, Bowel tones present and normoactive. Soft, nontender, nondistended. Extremities: No clubbing, cyanosis, edema, or lymphadenopathy appreciated. Skin: Normal temperature, turgor, and texture; no rash, ulcers, or subcutaneous nodules appreciated. Neurological: Cranial nerves grossly intact. Normal muscle strength, tone, and bulk. Psychiatric: Normal mood and affect. Alert and oriented to person, place, and time. Cooperative and pleasant Lab and Diagnostics Item Value Date Time Hemoglobin A1c 8.3 % H 10/12/16 0340 Glucose Level 108 mg/dL H 10/13/16 0300 Alanine Aminotransferase (ALT/SGPT) 44 U/L H 10/12/16 0340 Aspartate Amino Transf (AST/SGOT) 16 U/L 10/12/16 0340 Procalcitonin 0.12 ng/mL H 10/12/16 0340 White Blood Count 11.8 th/mm3 H 10/13/16 0300 Result Diagram: 10/13/16 0300 10/13/16 0300 Microbiology Item Value Date Time Blood Culture - Preliminary Resulted 10/07/16 1905 Blood Aerobic And Anaerobic Bottle No growth at 2 days; culture examined... Blood Culture - Preliminary Resulted 10/07/16 1855 Blood Aerobic And Anaerobic Bottle No growth at 2 days; culture examined... Urine Culture - Final Complete 10/07/16 1723 Urine,Clean Catch Pre-Plated Klebsiella Pneumoniae E. coli X-Rays, CTs and MRIs 10/13/16 PROCEDURE: X-RAY CHEST ONE VIEW, PORTABLE ([id number]) IMPRESSION: Bibasilar opacities compatible atelectasis versus pneumonia. Please correlate with clinical and laboratory data. PROCEDURE: CT ABDOMEN AND PELVIS WITH CONTRAST ([id number]) IMPRESSION: Left perinephric stranding, of unknown etiology. No definite associated urolithiasis. A small calcification seen in the region of the distal left ureter is unchanged since 07/30/15. This could represent recently passed calculus , however cannot exclude pyelonephritis. Please correlate clinically and with urinalysis data. Elsewhere, no acute abnormality seen. PROCEDURE: X-RAY CHEST ONE VIEW ([id number]) IMPRESSION: No acute disease. PROCEDURE: US RENAL SONOGRAM INDICATIONS: Possible hydronephrosis nor obstruction COMPARISON: [facility] Ultrasound, US, [facility], 07/04/2015, 8: 13. CT from 10/07/2016. FINDINGS: Kidneys: Kidneys are normal in size. Right kidney measures 10.1 cm long; left kidney measures 10.6 cm long. Right renal cortical thickness is 1.8 cm; left renal cortical thickness is 1.8 cm. Renal cortical echotexture is normal. No hydronephrosis or nephrolithiasis. No suspicious solid mass lesions. The spleen measures 15.1 x 11.1 x 5.2 CM with a 5 cm splenic cyst. Bladder: The patient's bladder was emptied prior to the examination. Miscellaneous: No free pelvic fluid. IMPRESSION: Sonographically normal kidneys. No sonographic correlate for left perinephric stranding seen on the recent CT. The bladder was emptied prior to the study limiting evaluation. Dictated by: Isac Banuelos M.D. on 10/08/2016 at 17:07 Approved by: Isac Banuelos M.D. on 10/08/2016 at 17:08 12-lead ECG 10/08/16 Normal Sinus Rhythm with HR 98 Cardiac Echo Impressions Interpretation Summary There is mild concentric left ventricular hypertrophy. The ejection fraction is estimated to be 60-65%. There are no obvious focal wall motion abnormalities noted but poor endocardial definition reduces the sensitivity for the detection of such. Assessment of diastolic parameters indicates normal left ventricular diastolic function and normal filling pressures. The right ventricle grossly appears normal in size with probable normal systolic function. Pulmonary artery pressures cannot be estimated because of the lack of a measurable TR jet velocity. The left atrium grossly appears normal in size. Right atrial size is normal. There is no significant valvular heart disease. The IVC is dilated (diameter is greater than 2.1 cm) and it collapses less than 50% with a sniff. This suggests a high right atrial pressure of 15 mm Hg. Additional Diagnostics 05:55:00 pH 7.418 pCO2 43.2 pO2 72.7 HCO3 27.4 FIO2 65.0% Assessment & Plan This is a 51-year-old morbidly obese woman with history of type II diabetes, hypertension, and CVA with residual right-sided deficits who originally presented to the ED from urgent care for evaluation of nausea vomiting with fever 4 days. Admitted to the hospitalist service for inpatient management of acute pyelonephritis and sepsis Acute hypoxemic respiratory failure, not present on admission, active CTA of chest PE protocol does not reveal any pulmonary emboli there is some possible bibasilar consolidation. Likely secondary to aspiration and pneumonitis. - Currently on bipap and tolerating well. ABG as above. Will try to titrate down as tolerated. - Started Solumedrol 60 mg IV BID - Echocardiogram 10/12/16 results as above - Currently on IV zosyn suspected aspiration pneumonia. - Incentive Spirometry Likely acute pyelonephritis, present on admission. Improved As demonstrated by her constitutional symptoms, left flank pain, new left perinephric stranding on CT. Urine cultures positive for both E. coli and Klebsiella pneumoniae -Continue IV Zosyn -Blood cultures negative since 10/07/16 -Tylenol as needed for fevers, Zofran as needed for nausea Type II diabetes mellitus, insulin requiring, present on admission -Patient has historically difficult to control diabetes. -Hemoglobin A1c was 7.7 -Insulin drip was stopped and has been switched to Regular insulin, nutritional -Hold her Glipizide and Metformin due to recent contrast and CHARLA Likely Acute Kidney Injury, present on admission -Cr of 1.39 on admission, recent Cr in March was 0.99. CHARLA likely due to dehydration and infection. -Continue treatment as above. Avoid nephrotoxic agents if possible. Sepsis, present on admission. Resolved As demonstrated by fever, tachycardia, with urinary source of infection. Initial lactate was 1.4 Hypovolemic hyponatremia, present on admission. resolved -Likely due to dehydration. Hypokalemia, present on admission. resolved -Potassium 3.4 on admission. -Replenished with 20 mEq PO Kclor, will continue to monitor History of CVA with residual right-sided deficits, as on admission. Stable -We will continue her full dose aspirin and atorvastatin -Continue her gabapentin for her neuropathy Essential Hypertension, present on admission. 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 -We will continue patient's fluoxetine Insomnia, on admission -We will continue her amitriptyline and melatonin Disposition: Patient will be here for at least 2-3 days. She will need to come down on her oxygen needs. GI Prophylaxis: Not indicated VTE Prophylaxis: Sub-Q Heparin (Unfractionated) Resuscitation Status: CPR: Attempt Resuscitation Attending Statement The patient was seen and examined together with Dr. You on 10/13/2016 and I agree with the history, exam and plan as outlined in the note above. . Rk You DO Oct 13, 2016 06:15 Jim Fraire MD Oct 16, 2016 08:13
--- NOTE | 2016-10-13 17:32 | NUR ---
Remains 02 dependent, fragile. Off bipap several hours while up on bedside today, requiring oxymask at 12L to maintain sats above 88%. Denies SOB, no resp distress, no cough noted. No insulin coverage this shift, blood sugars within goal range. Diet started this afternoon, eating well, no nausea reported. Afebrile. NS at 80ml/hr, brisk UOP. Up to BSC with SBA only, appears steady. Refuses ambulation or up to chair, sitting on side of bed for several hours. Incentive spirometer at bedside, instructed by RT. Sinus rhythm on tele, BP stable. Bipap on while napping.
[2016-10-13] MEDS ORDERED: Insulin Human REGular Inj 100 UNIT in 0.9% Sodium Chloride-Pha MIX 100 ML IV SCH (23:04)
[2016-10-14] VITALS (14 sets, daily range): BP systolic 119–146; BP diastolic 64–81; PULSE 74–97; RESP 17–22; O2SAT 92–100
[2016-10-14] MEDS: Sodium Chloride LOK Flush 10 mL Syringe IVFLUSH SCH ×4 (00:14→23:40)
[2016-10-14] MEDS: Piper-Tazo 3.375 Gm/50 mL D5W Minibag Plus - Q8H over 4 hrs IV SCH ×6 (00:34→16:47)
[2016-10-14] MEDS: Heparin 5,000 Unit/mL Inj SUBQ SCH ×3 (00:34→16:48)
[2016-10-14 06:07] LABS: BASOPHILS % (AUTO) 0.1 % (0-3); EOSINOPHILS % (AUTO) 0 % (0-5); MONOCYTES % (AUTO) 4.3 % (4-12); Mean Corpuscular Volume 88.4 fL (81-100); NEUTROPHILS % (AUTO) 75.5 % (40-74); Platelet Count 233 bil/L (150-400)
--- NOTE | 2016-10-14 06:22 | NUR ---
Hyperglycemia/Respiratory Fingerstick BG 424@ HS, covered with SS insulin subq, notified attending MD. ordered bmp and ketone lab, pt ketone neg, anion gap 15, K+ 5.7. Notified MD of results, restarted insulin gtt, BG from 389 down to 284,40 units of regular insulin total for the shift. On oxymask @ 13L while awake and on bipap with fio2 65% at bedtime, sp02>94%, Vital signs stable.
[2016-10-14] MEDS: Albuterol-Ipratropium 3 mL Inhalation Solution NEB SCH ×4 (08:05→21:12)
[2016-10-14] MEDS: 0.9% Sodium Chloride 1,000 ML IV SCH (08:45)
[2016-10-14] MEDS: MethylprednisoLONE Sodium Succinate 40 mg/mL Inj IVPUSH SCH (08:46)
[2016-10-14] MEDS: Ascorbic Acid 500 mg Tablet PO SCH (08:47)
[2016-10-14] MEDS: Insulin GLARgine 100 Unit/mL Syringe SUBQ SCH ×2 (10:58→21:31)
--- NOTE | 2016-10-14 11:43 | DRSVH ---
PROCEDURE: X-RAY CHEST ONE VIEW, PORTABLE ([id number]) INDICATIONS: SHORTNESS OF BREATH TECHNIQUE: One view of the chest was acquired. COMPARISON: [facility], CR, XR CHEST 1VW (PORTABLE), 10/12/2016, 16:27. FINDINGS: Surgical changes and devices: None. Lungs and pleura: Bibasilar pulmonary opacities left greater than right. Please note the lung bases a re none for on this study. Trace pleural effusions. Mediastinum: Mediastinal contours appear normal. Heart size is normal. Bones and chest wall: No suspicious bony lesions. Overlying soft tissues appear unremarkable. IMPRESSION: Bibasal atelectasis or less likely infiltrate left greater than right. Dictated by: Isac Banuelos M.D. on 10/14/2016 at 11:40 Approved by: Isac Banuelos M.D. on 10/14/2016 at 11:41
[2016-10-14] MEDS: Insulin LISPRO 300 Unit/3 mL Inj SUBQ SCH ×5 (12:51→21:31)
--- NOTE | 2016-10-14 13:09 | PROG NOTE ---
[address] [address] PROGRESS NOTE PATIENT: MIKAL RANDALL : 1965 MR#: [id number] ADMIT: 10/07/2016 JOB ID: [id number] PULMONARY CRITICAL CARE PROGRESS NOTE: DATE: 10/14/2016 SUBJECTIVE: The patient is a 51-year-old woman with morbid obesity, presenting with Klebsiella pyelonephritis, complicated by aspiration pneumonitis with acute hypoxic respiratory failure requiring noninvasive ventilation. The patient was seen and evaluated with resident physician, Flaquito Blevins DO. Please refer to separate detailed note for additional information. INTERVAL HISTORY: She was on BiPAP overnight and is currently on Oxymask, down to 8-9 L, which is significantly improved compared to yesterday. REVIEW OF SYSTEMS: Shortness of breath has improved. Denies cough, sputum, chest pain, fevers, chills. PHYSICAL EXAMINATION: Vital signs reviewed. General: Morbidly obese woman sitting in bed, breathing comfortably at rest. Chest: Clear to auscultation. LABORATORY DATA: Labs reviewed. Notable for potassium of 5.3. ASSESSMENT AND RECOMMENDATIONS: 1. Acute hypoxic respiratory failure - on noninvasive positive-pressure ventilation. 2. Severe sepsis - improved. 3. Klebsiella and Escherichia coli pyelonephritis. 4. Acute kidney injury - improved. 5. Morbid obesity. 6. Aspiration pneumonitis. A 51-year-old woman with distant [id number] smoking history presenting with Klebsiella/E. coli pyelonephritis complicated by aspiration pneumonitis with severe hypoxemia. She is steadily improving over the last few days, currently maintained on nocturnal BiPAP with Oxymask during the day. Oxygenation is much better today as well. With regards to antibiotics, she is currently on Zosyn and azithromycin. She is also getting Solu-Medrol 60 mg IV which I think can be switched to prednisone 40 mg daily starting tomorrow and probably stopped a few days after. I would like her to go on her home CPAP machine tonight with oxygen added to get her back on a more stable home regimen. She is going to work with Physical Therapy today. She has been using incentive spirometry. Does not have much sputum so I do not think that would help. We have repeat chest x-ray pending. Agree with transfer out of the ICU today. CRITICAL CARE TIME: 40 minutes.
--- NOTE | 2016-10-14 13:21 | NUR ---
Evaluation completed. Please go to "Notes" then click on "Assessments and Notes" (bottom left corner of screen). Then select appropriate discipline tab on top of screen.
--- NOTE | 2016-10-14 15:05 | PCM.PNMED ---
Subjective Date of Service Oct 14, 2016 Subjective Remain on BiPAP overnight, no significant events, states she is feeling well this morning. Denies any lightheadedness, dizziness, has a mild cough, has been able to transfer to bedside commode. Denies shortness of breath or chest pain. As of this morning is tolerating oxygen mask well. Exam Vital Signs Vital Sign - Last Date Time Temp Pulse Resp B/P Pulse Ox O2 Delivery O2 Flow Rate FiO2 10/14/16 12:36 80 20 135/81 96 10/14/16 11:57 Supplement Oxygen 10/14/16 11:57 36.8 8.00 10/14/16 08:06 65 Intake and Output 10/13/16 10/13/16 10/14/16 Cumulative From/Thru 15:00 23:00 07:00 10/07/16 16:55 - 10/14/16 06:19 Intake Total 1900 ml 1035 ml 63720 ml Output Total 1850 ml 1950 ml 07917 ml Balance 50 ml -915 ml 5812 ml Intake Oral 840 ml 5910 ml IV Total 1060 ml 1035 ml 68631 ml Output Urine Total 1850 ml 1950 ml 79086 ml # Voids 5 # Bowel Movements 0 0 1 Exam General: Laying in bed, no apparent distress. Obese, oximetry mask in place HEENT: Normocephalic, atraumatic, EOMI grossly, neck supple without lymphadenopathy, no JVD, mucous membranes moist, Cardiovascular: Regular rate and rhythm, no clicks murmurs rubs, peripheral pulses 2/4 equal bilaterally Pulmonary: Clear to auscultation bilaterally, no W/R/R. Abdominal: Soft to palpation, bowel sounds present 4, no hepatosplenomegaly. Negative rebound. Extremities: No edema appreciated. No tenderness, asymmetry. Neuro: Neurologically grossly intact, strength is equal bilaterally upper and lower extremities. MSK: Able to move extremities on their own volition, strength 5 out of 5 equal bilaterally to upper and lower extremities. IVs and Medications Medications Reviewed: Medications were reviewed in detail Lab and Diagnostics Result Diagram: 10/14/16 0535 10/14/16 0535 Microbiology Item Value Date Time Blood Culture - Preliminary Resulted 10/07/161904 Blood Aerobic And Anaerobic Bottle No growth at 2 days; culture examined... Blood Culture - Preliminary Resulted 7/12/17 1855 Blood Aerobic And Anaerobic Bottle No growth at 2 days; culture examined... Urine Culture - Final Complete 10/07/16 1723 Urine,Clean Catch Pre-Plated Klebsiella Pneumoniae E. coli X-Rays, CTs and MRIs Chest x-ray 10/14/2016 IMPRESSION: Bibasal atelectasis or less likely infiltrate left greater than right. Dictated by: Isac Banuelos M.D. on 10/14/2016 at 11:40 10/13/16 PROCEDURE: X-RAY CHEST ONE VIEW, PORTABLE ([id number]) IMPRESSION: Bibasilar opacities compatible atelectasis versus pneumonia. Please correlate with clinical and laboratory data. PROCEDURE: CT ABDOMEN AND PELVIS WITH CONTRAST ([id number]) IMPRESSION: Left perinephric stranding, of unknown etiology. No definite associated urolithiasis. A small calcification seen in the region of the distal left ureter is unchanged since 07/30/15. This could represent recently passed calculus , however cannot exclude pyelonephritis. Please correlate clinically and with urinalysis data. Elsewhere, no acute abnormality seen. PROCEDURE: X-RAY CHEST ONE VIEW ([id number]) IMPRESSION: No acute disease. PROCEDURE: US RENAL SONOGRAM INDICATIONS: Possible hydronephrosis nor obstruction COMPARISON: [facility] Ultrasound, US, [facility], 07/04/2015, 8: 13. CT from 10/07/2016. FINDINGS: Kidneys: Kidneys are normal in size. Right kidney measures 10.1 cm long; left kidney measures 10.6 cm long. Right renal cortical thickness is 1.8 cm; left renal cortical thickness is 1.8 cm. Renal cortical echotexture is normal. No hydronephrosis or nephrolithiasis. No suspicious solid mass lesions. The spleen measures 15.1 x 11.1 x 5.2 CM with a 5 cm splenic cyst. Bladder: The patient's bladder was emptied prior to the examination. Miscellaneous: No free pelvic fluid. IMPRESSION: Sonographically normal kidneys. No sonographic correlate for left perinephric stranding seen on the recent CT. The bladder was emptied prior to the study limiting evaluation. Dictated by: Isac Banuelos M.D. on 10/08/2016 at 17:07 Approved by: Isac Banuelos M.D. on 10/08/2016 at 17:08 12-lead ECG 10/08/16 Normal Sinus Rhythm with HR 98 Cardiac Echo Impressions Interpretation Summary There is mild concentric left ventricular hypertrophy. The ejection fraction is estimated to be 60-65%. There are no obvious focal wall motion abnormalities noted but poor endocardial definition reduces the sensitivity for the detection of such. Assessment of diastolic parameters indicates normal left ventricular diastolic function and normal filling pressures. The right ventricle grossly appears normal in size with probable normal systolic function. Pulmonary artery pressures cannot be estimated because of the lack of a measurable TR jet velocity. The left atrium grossly appears normal in size. Right atrial size is normal. There is no significant valvular heart disease. The IVC is dilated (diameter is greater than 2.1 cm) and it collapses less than 50% with a sniff. This suggests a high right atrial pressure of 15 mm Hg. Additional Diagnostics 05:55:00 pH 7.418 pCO2 43.2 pO2 72.7 HCO3 27.4 FIO2 65.0% Assessment & Plan 51-year-old morbidly obese woman hypertension, type 2 diabetes, history of CVA, admitted for sepsis secondary to pyelonephritis subsequently developed acute hypoxic respiratory failure, transferred to the ICU for noninvasive ventilation. Hospital day 8, ICU day 5, BiPAP Day 5. Weaning well. Acute hypoxemic respiratory failure, not present on admission, improved Hospital day 3 developed hypoxemia, CT of the chest negative for pulmonary embolism, consolidation possibly representing aspiration pneumonia, longtime smoker possible heralding COPD exacerbation Echocardiogram mild concentric left ventricular hypertrophy with EF 60-65, negative for signs of heart failure. Low procalcitonin, no increased white count Patient tolerating oxygen mask well, was able to ambulate around the floor on ambulatory oxygen mask. Use home CPAP tonight, with BiPAP on standby. Chest x-ray appears to be improved from previous, less consolidation, though still present - imaging personally reviewed and independently interpreted. Received 60 mg Solu-Medrol daily, change this to 40 mg prednisone by mouth tomorrow morning Completed 5 day course of azithromycin Currently on IV Zosyn possible aspiration and urinary tract infection treatment , see below. Continue nebulizers, DuoNeb's every 4 hours while awake Recommend formal PFT as outpatient Anticipate discharge home on oxygen, when appropriately weaned and stable.- Physical therapy evaluation today. Encourage use of incentive spirometer. Acute pyelonephritis, POA, improved Evidenced by constitutional symptoms, left flank pain, perinephric stranding on CT, urine culture positive for Escherichia coli and Klebsiella pneumoniae Continue IV Zosyn Blood cultures remain negative Type II diabetes mellitus, requiring insulin drip, present on admission, improved Overnight patient's blood sugar rainer to greater than 500, requiring insulin drip , patient did not receive basal insulin dose Uncontrolled on admission, hemoglobin A1c 7.7. Significantly elevated blood sugars with administration of Solu-Medrol. Diabetic diet, Glucerna, discussed with dietitian and primary team. Continue correctional insulin Additional glucose/insulin management per primary team All other problems chronic and stable managed by primary team Based on improvement in oxygen demand, tolerating BiPAP wean, stable on oxygen mask, patient may be transferred from ICU status. GI prophylaxis not indicated DVT prophylaxis subcutaneous heparin Pain management as needed Patient remains full code GI Prophylaxis: Not indicated VTE Prophylaxis: Sub-Q Heparin (Unfractionated) Resuscitation Status: CPR: Attempt Resuscitation Flaquito Blevins DO Oct 14, 2016 15:05 GI Prophylaxis: Not indicated VTE Prophylaxis: Sub-Q Heparin (Unfractionated) Resuscitation Status: CPR: Attempt Resuscitation Flaquito Blevins DO Oct 14, 2016 15:05
[2016-10-14] MEDS ORDERED: Insulin LISPRO 300 Unit/3 mL Inj SUBQ ONE ×2 (17:00→18:45)
--- NOTE | 2016-10-14 17:10 | NUR ---
Social Work Note: Continued Discharge Planning/Multidisciplinary Rounds Data& Assessment: Pt was discussed in AM rounds today, Per MD pt is still weaning off of oxygen. SW met with pt at bedside to check in and assess for any unmet needs. Pt explained she has been ambulating out of bed as much as possible. Pt denies any needs at this time and concentrating on her oxygen needs decreasing. No MD orders identified at this time. SW to continue to follow. Plan: Anticipated discharge home via POV when medically ready. SW to follow for any PT needs or MD orders. Pt denies any needs at this time. No MD orders identified at this time. SW to continue to follow. IVAN Taylor
--- NOTE | 2016-10-14 18:00 | NUR ---
Oxygen/activity/elevated blood glucose Patients oxygen needs decreased during the progress of the shift- able to wean down gradually from 14L oxy- mask to 5L NC O 2 with oxygen saturation remaining 95-96%. Patient denied having any shortness of breath. Patient ambulated with PT in hallways earlier today while still on 8L oxy- mask O2 and tolerated the activity well- please see PT documentation for activity details. Patient was transitioned to SUBQ insulin from IV insulin mod morning. Dose of Lantus insulin 70units SUBQ was given prior to transitioning. Blood glucose checked Q2-3H consulted with MD after each result about SUBQ lispro insulin administration. Dinner time blood glucose was 426- DM was alerted to elevated blood glucose, patient was given 20units lispro insulin SUBQ in addition to 12units lispro SUBQ insulin per high sliding scale. Patient was placed on no carbohydrate diet by attending MD- education was given. Patient seem to have some understanding of dietary restriction prior to education given information reinforced her understanding- continue frequent glucose monitoring/ continue assessment.
--- NOTE | 2016-10-14 18:54 | NUR ---
Blood glucose recheck Blood glucose rechecked one hour after additional 20units SUBQ lispro insulin was given remained elevated at 412. MD was made aware about the findings- additional 20units lispro SUBQ insulin was given at 1845- continue assessment.
--- NOTE | 2016-10-14 21:04 | PCM.PNMED ---
Subjective Date of Service Oct 14, 2016 Subjective Overnight Events: Blood sugars jumped up into 500 in the night after being stopped off insulin drip in the morning. Today, Mrs. Reese is feeling well on oxygen mask at 10L. She is not having shortness of breath, chest pain, cough. No changes in urinary symptoms. She feels more ready to try and get up from bed today. Exam Vital Signs Vital Sign - Last Date Time Temp Pulse Resp B/P Pulse Ox O2 Delivery O2 Flow Rate FiO2 10/14/16 04:56 74 22 119/71 98 65 10/14/16 04:00 36.5 BiPAP 10/13/16 19:26 13.00 Intake and Output 10/13/16 10/13/16 10/14/16 Cumulative From/Thru 15:00 23:00 07:00 10/07/16 16:55 - 10/13/16 19:26 Intake Total 1900 ml 79503 ml Output Total 1850 ml 9300 ml Balance 50 ml 6727 ml Intake Oral 840 ml 5910 ml IV Total 1060 ml 70021 ml Output Urine Total 1850 ml 9300 ml # Voids 5 # Bowel Movements 0 1 Exam General: Obese female who appears in no acute distress HEENT: Normocephalic, atraumatic. External ears without defect. Anicteric sclerae, moist conjunctivae. Neck: Supple with full range of motion. No jugular venous distension. No lymphadenopathy or thyromegaly. No sinus tenderness Cardiovascular: regular rate and rhythm with no murmurs, rubs, or gallops appreciated Pulmonary: Clear to auscultation bilaterally with no crackles, wheezes, or rhonchi. Normal respiratory effort with no use of accessory muscles. Currently on oxymask Abdomen: Obese abdomen, Bowel tones present and normoactive. Soft, nontender, nondistended. Extremities: No clubbing, cyanosis, edema, or lymphadenopathy appreciated. Skin: Normal temperature, turgor, and texture; no rash, ulcers, or subcutaneous nodules appreciated. Neurological: Cranial nerves grossly intact. Normal muscle strength, tone, and bulk. Psychiatric: Normal mood and affect. Alert and oriented to person, place, and time. Cooperative and pleasant Lab and Diagnostics Result Diagram: 10/13/16 0300 10/13/16 2133 Microbiology Item Value Date Time Blood Culture - Preliminary Resulted 10/07/16 1905 Blood Aerobic And Anaerobic Bottle No growth at 2 days; culture examined... Blood Culture - Preliminary Resulted 10/07/16 1855 Blood Aerobic And Anaerobic Bottle No growth at 2 days; culture examined... Urine Culture - Final Complete 10/07/16 1723 Urine,Clean Catch Pre-Plated Klebsiella Pneumoniae E. coli X-Rays, CTs and MRIs 10/13/16 PROCEDURE: X-RAY CHEST ONE VIEW, PORTABLE ([id number]) IMPRESSION: Bibasilar opacities compatible atelectasis versus pneumonia. Please correlate with clinical and laboratory data. PROCEDURE: CT ABDOMEN AND PELVIS WITH CONTRAST ([id number]) IMPRESSION: Left perinephric stranding, of unknown etiology. No definite associated urolithiasis. A small calcification seen in the region of the distal left ureter is unchanged since 07/30/15. This could represent recently passed calculus , however cannot exclude pyelonephritis. Please correlate clinically and with urinalysis data. Elsewhere, no acute abnormality seen. PROCEDURE: X-RAY CHEST ONE VIEW ([id number]) IMPRESSION: No acute disease. PROCEDURE: US RENAL SONOGRAM INDICATIONS: Possible hydronephrosis nor obstruction COMPARISON: [facility] Ultrasound, US, [facility], 07/04/2015, 8: 13. CT from 10/07/2016. FINDINGS: Kidneys: Kidneys are normal in size. Right kidney measures 10.1 cm long; left kidney measures 10.6 cm long. Right renal cortical thickness is 1.8 cm; left renal cortical thickness is 1.8 cm. Renal cortical echotexture is normal. No hydronephrosis or nephrolithiasis. No suspicious solid mass lesions. The spleen measures 15.1 x 11.1 x 5.2 CM with a 5 cm splenic cyst. Bladder: The patient's bladder was emptied prior to the examination. Miscellaneous: No free pelvic fluid. IMPRESSION: Sonographically normal kidneys. No sonographic correlate for left perinephric stranding seen on the recent CT. The bladder was emptied prior to the study limiting evaluation. Dictated by: Isac Banuelos M.D. on 10/08/2016 at 17:07 Approved by: Isac Banuelos M.D. on 10/08/2016 at 17:08 12-lead ECG 10/08/16 Normal Sinus Rhythm with HR 98 Cardiac Echo Impressions Interpretation Summary There is mild concentric left ventricular hypertrophy. The ejection fraction is estimated to be 60-65%. There are no obvious focal wall motion abnormalities noted but poor endocardial definition reduces the sensitivity for the detection of such. Assessment of diastolic parameters indicates normal left ventricular diastolic function and normal filling pressures. The right ventricle grossly appears normal in size with probable normal systolic function. Pulmonary artery pressures cannot be estimated because of the lack of a measurable TR jet velocity. The left atrium grossly appears normal in size. Right atrial size is normal. There is no significant valvular heart disease. The IVC is dilated (diameter is greater than 2.1 cm) and it collapses less than 50% with a sniff. This suggests a high right atrial pressure of 15 mm Hg. Additional Diagnostics 05:55:00 pH 7.418 pCO2 43.2 pO2 72.7 HCO3 27.4 FIO2 65.0% Assessment & Plan This is a 51-year-old morbidly obese woman with history of type II diabetes, hypertension, and CVA with residual right-sided deficits who originally presented to the ED from urgent care for evaluation of nausea vomiting with fever 4 days. Admitted to the hospitalist service for inpatient management of acute pyelonephritis and sepsis. She developed acute hypoxemic respiratory failure requring 50L high flow oxygen and subsequently transferred to the ICU for bipap and worsening oxygen demand. Acute hypoxemic respiratory failure, not present on admission, improved CTA of chest PE protocol does not reveal any pulmonary emboli there is some possible bibasilar consolidation. Likely secondary to aspiration and pneumonitis. - Currently on oxymask 10L and tolerating well. ABG as above. Will try to titrate down as tolerated. - Switch to Prednisone 40 mg daily - Echocardiogram 10/12/16 results as above - Currently on IV zosyn suspected aspiration pneumonia. - Incentive Spirometry - Physical therapy Likely acute pyelonephritis, present on admission. Improved As demonstrated by her constitutional symptoms, left flank pain, new left perinephric stranding on CT. Urine cultures positive for both E. coli and Klebsiella pneumoniae -Continue IV Zosyn -Blood cultures negative since 10/07/16 -Tylenol as needed for fevers, Zofran as needed for nausea Type II diabetes mellitus, insulin requiring, present on admission Patient has historically difficult to control diabetes. Exacerbated by steroids in hospital. -Hemoglobin A1c was 8.2 -Insulin drip stopped today with transition to 70 units Lantus qAM and 80 units nightly. -Hold her Glipizide and Metformin due to recent contrast and CHARLA Likely Acute Kidney Injury, present on admission -Cr of 1.39 on admission, recent Cr in March was 0.99. CHARLA likely due to dehydration and infection. -Continue treatment as above. Avoid nephrotoxic agents if possible. Sepsis, present on admission. Resolved As demonstrated by fever, tachycardia, with urinary source of infection. Initial lactate was 1.4 Hypovolemic hyponatremia, present on admission. resolved -Likely due to dehydration. Hypokalemia, present on admission. resolved -Potassium 3.4 on admission. -Will continue to monitor History of CVA with residual right-sided deficits, as on admission. Stable -We will continue her full dose aspirin and atorvastatin -Continue her gabapentin for her neuropathy Essential Hypertension, present on admission. 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 -We will continue patient's fluoxetine Insomnia, on admission -We will continue her amitriptyline and melatonin Disposition: Patient will be here for at least 2-3 days. She will need to come down on her oxygen needs. GI Prophylaxis: Not indicated VTE Prophylaxis: Sub-Q Heparin (Unfractionated) Resuscitation Status: CPR: Attempt Resuscitation Attending Statement The patient was seen and examined together with Dr. You on 10/14/2016 and I agree with the history, exam and plan as outlined in the note above. . Rk You DO Oct 14, 2016 06:21 Jim Fraire MD Oct 16, 2016 08:13
[2016-10-15] VITALS (12 sets, daily range): BP systolic 122–145; BP diastolic 70–91; PULSE 78–92; RESP 15–20; O2SAT 89–96
[2016-10-15] MEDS: Heparin 5,000 Unit/mL Inj SUBQ SCH ×3 (00:49→15:35)
[2016-10-15] MEDS: Piper-Tazo 3.375 Gm/50 mL D5W Minibag Plus - Q8H over 4 hrs IV SCH ×4 (00:50→08:54)
--- NOTE | 2016-10-15 05:16 | NUR ---
Tele/BG level Assumed care of patient at 2245. Denies chest pain and pressure with dyspnea with exertion. Pt used CPAP this HS with SPO2 in mid 90s on cont pulse ox. Tele: SR hr 70s per quality assurance monitor. Pt noted to have had a shower this HS. BG 249 recheck. No s/sx of hypo/hypertension. Bed in lowest position and call light within reach. Care continues.
[2016-10-15 05:24] LABS: BASOPHILS % (AUTO) 0.2 % (0-3); EOSINOPHILS % (AUTO) 0.3 % (0-5); MONOCYTES % (AUTO) 5.5 % (4-12); Mean Corpuscular Volume 88.8 fL (81-100); Platelet Count 247 bil/L (150-400)
--- NOTE | 2016-10-15 08:01 | DRSVH ---
PROCEDURE: X-RAY CHEST ONE VIEW ([id number]) INDICATIONS: hypoxia TECHNIQUE: One view of the chest was acquired. COMPARISON: [facility], CR, XR CHEST 1VW, 10/07/2016, 17:09. FINDINGS: Surgical changes and devices: None. Lungs and pleura: No pleural effusions or pneumothorax. New bibasilar pulmonary opacities. Mediastinum: Mediastinal contours appear normal. Heart size is normal. Bones and chest wall: No suspicious bony lesions. Overlying soft tissues appear unremarkable. IMPRESSION: Bibasilar pulmonary opacities may represent atelectasis, early infiltrate or less likely aspiration. Dictated by: Isac Banuelos M.D. on 10/15/2016 at 7:57 Approved by: Isac Banuelos M.D. on 10/15/2016 at 7:59
[2016-10-15] MEDS ORDERED: predniSONE 20 mg Tablet PO SCH (08:30)
[2016-10-15] MEDS: Insulin LISPRO 300 Unit/3 mL Inj SUBQ SCH ×7 (08:53→20:28)
[2016-10-15] MEDS: Sodium Chloride LOK Flush 10 mL Syringe IVFLUSH SCH ×2 (08:55→15:34)
[2016-10-15] MEDS: Ascorbic Acid 500 mg Tablet PO SCH (08:56)
[2016-10-15] MEDS: Insulin GLARgine 100 Unit/mL Syringe SUBQ SCH ×2 (08:57→20:29)
[2016-10-15] MEDS: Albuterol-Ipratropium 3 mL Inhalation Solution NEB SCH ×4 (10:02→21:00)
--- NOTE | 2016-10-15 10:59 | NUR ---
TO [facility] [place] Patient to unit from [facility] approx at 1025. Stable VS. report recieved from primary RN in [facility]
--- NOTE | 2016-10-15 11:05 | NUR ---
Transfer Pt was transferred over to [facility] at around 1030. Report given to RN at bedside. Pt A&Ox3, vitals stable on 3.5L NC, and aware of moving. All morning documentation done and medications given. Tele removed prior to moving.
--- NOTE | 2016-10-15 11:37 | PCM.PNMED ---
Subjective Date of Service Oct 15, 2016 Subjective Overnight Events: None Today, Mrs. Reese is resting in bed comfortably and in no acute distress. She is breathing well on nasal canula. She denies headache, dizziness, nausea, vomiting, chest pain and abdominal pain. She is urinating well. Plan to assess oxygen requirements with activity. Exam Vital Signs Vital Sign - Last Date Time Temp Pulse Resp B/P Pulse Ox O2 Delivery O2 Flow Rate FiO2 10/15/16 05:08 89 10/15/16 04:57 Supplement Oxygen 10/15/16 03:23 36.5 20 124/71 95 10/14/16 22:50 5.00 10/14/16 08:06 65 Intake and Output 10/14/16 10/14/16 10/15/16 Cumulative From/Thru 15:00 23:00 07:00 10/07/16 16:55 - 10/15/16 05:37 Intake Total 2326 ml 647 ml 24782 ml Output Total 2300 ml 500 ml 16764 ml Balance 26 ml 147 ml 5985 ml Intake Oral 1600 ml 300 ml 7810 ml IV Total 726 ml 347 ml 45077 ml Output Urine Total 2300 ml 500 ml 05594 ml # Voids 4 9 # Bowel Movements 1 0 2 Exam General: Obese female who appears in no acute distress HEENT: Normocephalic, atraumatic. External ears without defect. Anicteric sclerae, moist conjunctivae. Neck: Supple with full range of motion. No jugular venous distension. No lymphadenopathy or thyromegaly. No sinus tenderness Cardiovascular: regular rate and rhythm with no murmurs, rubs, or gallops appreciated Pulmonary: Clear to auscultation bilaterally with no crackles, wheezes, or rhonchi. Normal respiratory effort with no use of accessory muscles. Currently on nasal cannula. Abdomen: Obese abdomen, Bowel tones present and normoactive. Soft, nontender, nondistended. Extremities: No clubbing, cyanosis, edema, or lymphadenopathy appreciated. Skin: Normal temperature, turgor, and texture; no rash, ulcers, or subcutaneous nodules appreciated. Neurological: Cranial nerves grossly intact. Normal muscle strength, tone, and bulk. Psychiatric: Normal mood and affect. Alert and oriented to person, place, and time. Cooperative and pleasant Lab and Diagnostics Result Diagram: 10/15/16 0500 10/15/16 0500 Microbiology Item Value Date Time Blood Culture - Preliminary Resulted 10/07/16 1905 Blood Aerobic And Anaerobic Bottle No growth at 2 days; culture examined... Blood Culture - Preliminary Resulted 10/07/16 1855 Blood Aerobic And Anaerobic Bottle No growth at 2 days; culture examined... Urine Culture - Final Complete 10/07/16 1723 Urine,Clean Catch Pre-Plated Klebsiella Pneumoniae E. coli X-Rays, CTs and MRIs 10/13/16 PROCEDURE: X-RAY CHEST ONE VIEW, PORTABLE ([id number]) IMPRESSION: Bibasilar opacities compatible atelectasis versus pneumonia. Please correlate with clinical and laboratory data. PROCEDURE: CT ABDOMEN AND PELVIS WITH CONTRAST ([id number]) IMPRESSION: Left perinephric stranding, of unknown etiology. No definite associated urolithiasis. A small calcification seen in the region of the distal left ureter is unchanged since 07/30/15. This could represent recently passed calculus , however cannot exclude pyelonephritis. Please correlate clinically and with urinalysis data. Elsewhere, no acute abnormality seen. PROCEDURE: X-RAY CHEST ONE VIEW ([id number]) IMPRESSION: No acute disease. PROCEDURE: US RENAL SONOGRAM INDICATIONS: Possible hydronephrosis nor obstruction COMPARISON: [facility] Ultrasound, US, [facility], 07/04/2015, 8: 13. CT from 10/07/2016. FINDINGS: Kidneys: Kidneys are normal in size. Right kidney measures 10.1 cm long; left kidney measures 10.6 cm long. Right renal cortical thickness is 1.8 cm; left renal cortical thickness is 1.8 cm. Renal cortical echotexture is normal. No hydronephrosis or nephrolithiasis. No suspicious solid mass lesions. The spleen measures 15.1 x 11.1 x 5.2 CM with a 5 cm splenic cyst. Bladder: The patient's bladder was emptied prior to the examination. Miscellaneous: No free pelvic fluid. IMPRESSION: Sonographically normal kidneys. No sonographic correlate for left perinephric stranding seen on the recent CT. The bladder was emptied prior to the study limiting evaluation. Dictated by: Isac Banuelos M.D. on 10/08/2016 at 17:07 Approved by: Isac Banuelos M.D. on 10/08/2016 at 17:08 12-lead ECG 10/08/16 Normal Sinus Rhythm with HR 98 Cardiac Echo Impressions Interpretation Summary There is mild concentric left ventricular hypertrophy. The ejection fraction is estimated to be 60-65%. There are no obvious focal wall motion abnormalities noted but poor endocardial definition reduces the sensitivity for the detection of such. Assessment of diastolic parameters indicates normal left ventricular diastolic function and normal filling pressures. The right ventricle grossly appears normal in size with probable normal systolic function. Pulmonary artery pressures cannot be estimated because of the lack of a measurable TR jet velocity. The left atrium grossly appears normal in size. Right atrial size is normal. There is no significant valvular heart disease. The IVC is dilated (diameter is greater than 2.1 cm) and it collapses less than 50% with a sniff. This suggests a high right atrial pressure of 15 mm Hg. Additional Diagnostics 05:55:00 pH 7.418 pCO2 43.2 pO2 72.7 HCO3 27.4 FIO2 65.0% Assessment & Plan This is a 51-year-old morbidly obese woman with history of type II diabetes, hypertension, and CVA with residual right-sided deficits who originally presented to the ED from urgent care for evaluation of nausea vomiting with fever 4 days. Admitted to the hospitalist service for inpatient management of acute pyelonephritis and sepsis This is a 51-year-old morbidly obese woman with history of type II diabetes, hypertension, and CVA with residual right-sided deficits who originally presented to the ED from urgent care for evaluation of nausea vomiting with fever 4 days. Admitted to the hospitalist service for inpatient management of acute pyelonephritis and sepsis. She developed acute hypoxemic respiratory failure requring 50L high flow oxygen and subsequently transferred to the ICU for bipap and worsening oxygen demand. Acute hypoxemic respiratory failure, not present on admission, improved CTA of chest PE protocol does not reveal any pulmonary emboli there is some possible bibasilar consolidation. Likely secondary to aspiration and pneumonitis. - Currently on nasal canula and tolerating well. ABG as above. Will try to titrate down as tolerated. - Prednisone 40 mg daily - Echocardiogram 10/12/16 results as above - Day 8 of antibiotics switched from zosyn to levofloxacin to continue through - Incentive Spirometry - Physical therapy Likely acute pyelonephritis, present on admission. Improved As demonstrated by her constitutional symptoms, left flank pain, new left perinephric stranding on CT. Urine cultures positive for both E. coli and Klebsiella pneumoniae -Day 8 of antibiotics switched from zosyn to levofloxacin to continue through -Blood cultures negative since 10/07/16 -Tylenol as needed for fevers, Zofran as needed for nausea Type II diabetes mellitus, insulin requiring, present on admission Patient has historically difficult to control diabetes. Exacerbated by steroids in hospital. -Hemoglobin A1c was 8.2 -Insulin drip stopped today with transition to 70 units Lantus qAM and 80 units nightly. -Hold her Glipizide and Metformin due to recent contrast and CHARLA Likely Acute Kidney Injury, present on admission -Cr of 1.39 on admission, recent Cr in March was 0.99. CHARLA likely due to dehydration and infection. -Continue treatment as above. Avoid nephrotoxic agents if possible. Sepsis, present on admission. Resolved As demonstrated by fever, tachycardia, with urinary source of infection. Initial lactate was 1.4 Hypovolemic hyponatremia, present on admission. resolved -Likely due to dehydration. Hypokalemia, present on admission. resolved -Potassium 3.4 on admission. -Will continue to monitor History of CVA with residual right-sided deficits, as on admission. Stable -We will continue her full dose aspirin and atorvastatin -Continue her gabapentin for her neuropathy Essential Hypertension, present on admission. 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 -We will continue patient's fluoxetine Insomnia, on admission -We will continue her amitriptyline and melatonin Disposition: Patient will be here for at least 1-2 days. She will need to come down on her oxygen needs. GI Prophylaxis: Not indicated VTE Prophylaxis: Sub-Q Heparin (Unfractionated) Resuscitation Status: CPR: Attempt Resuscitation Attending Statement The patient was seen and examined together with Dr. You on 10/15/2016 and I agree with the history, exam and plan as outlined in the note above. . Rk You DO Oct 15, 2016 06:33 Jim Fraire MD Oct 16, 2016 08:14
[2016-10-15] MEDS: levoFLOXacin 750 mg Tablet PO SCH (12:15)
--- NOTE | 2016-10-15 14:27 | NUR ---
NUTRITION ASSESSMENT: ASSESS: Pt is a 51yo F admitted for pyelonephritis, fever, nausea, vomiting. Pt was requiring BIPAP but now has improved. She is on a heart healthy/consistent carb diet and tolerating well. Pt reported that her appetite is good. PO has been ~100% of meals. She has receiving Glucerna when on BIPAP but now that pt is breathing better she reported that she is okay with not getting it anymore and eating regular food. PMHX: T2DM, CVA, HTN, TANIA, Anxiety LABS: Reviewed. Bun 25, Glu 223, ALT 57, Alb 3.1 MEDS: Reviewed. Prednisone, insulin GI: BMx1 10/14 SKIN: no major issues CURRENT WTS: 150kg, BM 53.4kg/m2, admit [id number], [id number], adj bw81.8kg DIET: HH/CC, PO 100% EST. NEEDS: BMI Kcals: 1800-2045kcal/day (22-25kcal/kg adj bw) Pro: 85-100g/day (1.0-1.2g/kg adjbw) NUTRITION DIAGNOSIS: 1.) Altered nutrition related lab values relate to endocrine dysfunction as evidence by A1C of 8.0 NUTRITION INTERVENTION: 1.) Will cancel Glucerna. 2.) DM diet education completed. Please see Inpt DM screen & assessment under care activity for further information on education. MONITOR / EVAL: PO, wt, GI, labs. POC, nutrition status. Will continue to monitor per moderate nutrition risk guidelines
--- NOTE | 2016-10-15 15:39 | NUR ---
Social Work: Multidisciplinary Rounds/Readiness for Discharge D/A: Pt discussed in am rounds; sw status remains unchanged. Anticipate discharge home when medically stable. PT was able to meet with the patient to complete PT evaluation; current recommendation is for d/c home when stable. MANAGER ENERGY met with the patient at bedside to assess for discharge needs and/or barriers. Pt states that she is eager to get home and identifies no sw needs. She states that her s/o will transport her when ready. P: Anticipate discharge home via POV and no sw needs; MANAGER ENERGY to continue to follow to assess for further d/c needs IVAN Kumar
--- NOTE | 2016-10-15 18:23 | NUR ---
Mentation Alert and orientedX3. Able to make needs known. Stable vital signs. Stable oxygen at room air. no sign and symptoms of respiratory distress noted. Stable blood sugars, insulin given per sliding scale. patient tolerating well PO fluids and meals at bed side. Hospitalist at bed side before dinner. Denies pain or discomfort. Stable mood. Wears CPAP at night when sleeping. Steady on feet and ambulates independent to bathroom. BM this shift per patient report. Oral ABO given as ordered with no GI adverse effects. call light with in reach for safety and uses appropriately. Continue to monitor vital signs, pain, blood sugars, and safety.
[2016-10-16 03:55] VITALS: BP 131/79; PULSE 74; RESP 18; O2SAT 97
--- NOTE | 2016-10-16 06:08 | NUR ---
Uneventful night Pt denies any pain all shift, up to BR independently, on RA while awake with sats in low 90's, uses CPAP at night with sats in high 90's. Pt voiding without any problems.
[2016-10-16 07:04] LABS: BASOPHILS % (AUTO) 0.2 % (0-3); EOSINOPHILS % (AUTO) 0.5 % (0-5); MONOCYTES % (AUTO) 4.8 % (4-12); Mean Corpuscular Volume 88.7 fL (81-100); NEUTROPHILS % (AUTO) 62.2 % (40-74); Platelet Count 246 bil/L (150-400)
[2016-10-16] MEDS ORDERED: levoFLOXacin 750 mg Tablet PO SCH (07:30)
[2016-10-16 07:57] VITALS: PULSE 75; O2SAT 91
[2016-10-16] MEDS: Albuterol-Ipratropium 3 mL Inhalation Solution NEB SCH ×2 (07:57→12:30)
[2016-10-16] MEDS: Insulin LISPRO 300 Unit/3 mL Inj SUBQ SCH ×4 (08:00→12:58)
[2016-10-16 08:31] VITALS: BP 127/65; PULSE 95; RESP 18; O2SAT 93
[2016-10-16] MEDS: Ascorbic Acid 500 mg Tablet PO SCH (08:35)
[2016-10-16] MEDS: levoFLOXacin 750 mg Tablet PO SCH (08:35)
[2016-10-16] MEDS: Heparin 5,000 Unit/mL Inj SUBQ SCH ×2 (08:36)
[2016-10-16] MEDS: Sodium Chloride LOK Flush 10 mL Syringe IVFLUSH SCH ×2 (08:36)
[2016-10-16] MEDS: Insulin GLARgine 100 Unit/mL Syringe SUBQ SCH (08:37)
--- NOTE | 2016-10-16 10:46 | NUR ---
Rounds MD notified of pt status, VSS, up with PT and desats to 85% with ambulation however asymptomatic, no other complaints or concerns noted this am.
--- NOTE | 2016-10-16 11:03 | PCM.PNMED ---
Subjective Date of Service Oct 16, 2016 Subjective Patient is sitting up in bed comfortably. Is not on oxygen. Denies any shortness of breath. Says that she had her physical therapy session felt like she tolerated it fine although her pulse oximetry reading was 85%. She had a repeat ambulating pulse ox performed by respiratory therapy with saturations greater than 88%. Mr. duncan felt that the earlier reading may have been incorrect due to nail arabic and they also initially got the same low readings before switching hands. Exam Vital Signs Vital Sign - Last Date Time Temp Pulse Resp B/P Pulse Ox O2 Delivery O2 Flow Rate FiO2 10/16/16 08:31 36.6 95 18 127/65 93 Room Air 10/16/16 05:45 21 10/15/16 10:30 3.50 Intake and Output 10/15/16 10/15/16 10/16/16 Cumulative From/Thru 15:00 23:00 07:00 10/07/16 16:55 - 10/16/16 05:16 Intake Total 1300 ml 744 ml 03344 ml Output Total 83260 ml Balance 1300 ml 744 ml 8029 ml Intake Oral 1095 ml 744 ml 9649 ml IV Total 205 ml 22369 ml Output Urine Total 54795 ml # Voids 4 2 15 # Bowel Movements 2 Exam General: Obese female who appears in no acute distress HEENT: Normocephalic, atraumatic. External ears without defect. Anicteric sclerae, moist conjunctivae. Neck: Supple with full range of motion. No jugular venous distension. No lymphadenopathy or thyromegaly. No sinus tenderness Cardiovascular: regular rate and rhythm with no murmurs, rubs, or gallops appreciated Pulmonary: Clear to auscultation bilaterally with no crackles, wheezes, or rhonchi. Normal respiratory effort with no use of accessory muscles. Currently on nasal cannula. Abdomen: Obese abdomen, Bowel tones present and normoactive. Soft, nontender, nondistended. Extremities: No clubbing, cyanosis, edema, or lymphadenopathy appreciated. Skin: Normal temperature, turgor, and texture; no rash, ulcers, or subcutaneous nodules appreciated. Neurological: Cranial nerves grossly intact. Normal muscle strength, tone, and bulk. Psychiatric: Normal mood and affect. Alert and oriented to person, place, and time. Cooperative and pleasant IVs and Medications Medications Reviewed: Medications were reviewed in detail Lab and Diagnostics Result Diagram: 10/16/16 0645 10/16/16 0645 Microbiology Item Value Date Time Blood Culture - Preliminary Resulted 10/07/16 1905 Blood Aerobic And Anaerobic Bottle No growth at 2 days; culture examined... Blood Culture - Preliminary Resulted 10/07/16 1855 Blood Aerobic And Anaerobic Bottle No growth at 2 days; culture examined... Urine Culture - Final Complete 10/07/16 1723 Urine,Clean Catch Pre-Plated Klebsiella Pneumoniae E. coli X-Rays, CTs and MRIs 10/13/16 PROCEDURE: X-RAY CHEST ONE VIEW, PORTABLE ([id number]) IMPRESSION: Bibasilar opacities compatible atelectasis versus pneumonia. Please correlate with clinical and laboratory data. PROCEDURE: CT ABDOMEN AND PELVIS WITH CONTRAST ([id number]) IMPRESSION: Left perinephric stranding, of unknown etiology. No definite associated urolithiasis. A small calcification seen in the region of the distal left ureter is unchanged since 07/30/15. This could represent recently passed calculus , however cannot exclude pyelonephritis. Please correlate clinically and with urinalysis data. Elsewhere, no acute abnormality seen. PROCEDURE: X-RAY CHEST ONE VIEW ([id number]) IMPRESSION: No acute disease. PROCEDURE: US RENAL SONOGRAM INDICATIONS: Possible hydronephrosis nor obstruction COMPARISON: [facility] Ultrasound, US, [facility], 07/04/2015, 8: 13. CT from 10/07/2016. FINDINGS: Kidneys: Kidneys are normal in size. Right kidney measures 10.1 cm long; left kidney measures 10.6 cm long. Right renal cortical thickness is 1.8 cm; left renal cortical thickness is 1.8 cm. Renal cortical echotexture is normal. No hydronephrosis or nephrolithiasis. No suspicious solid mass lesions. The spleen measures 15.1 x 11.1 x 5.2 CM with a 5 cm splenic cyst. Bladder: The patient's bladder was emptied prior to the examination. Miscellaneous: No free pelvic fluid. IMPRESSION: Sonographically normal kidneys. No sonographic correlate for left perinephric stranding seen on the recent CT. The bladder was emptied prior to the study limiting evaluation. Dictated by: Isac Banuelos M.D. on 10/08/2016 at 17:07 Approved by: Isac Banuelos M.D. on 10/08/2016 at 17:08 12-lead ECG 10/08/16 Normal Sinus Rhythm with HR 98 Cardiac Echo Impressions Interpretation Summary There is mild concentric left ventricular hypertrophy. The ejection fraction is estimated to be 60-65%. There are no obvious focal wall motion abnormalities noted but poor endocardial definition reduces the sensitivity for the detection of such. Assessment of diastolic parameters indicates normal left ventricular diastolic function and normal filling pressures. The right ventricle grossly appears normal in size with probable normal systolic function. Pulmonary artery pressures cannot be estimated because of the lack of a measurable TR jet velocity. The left atrium grossly appears normal in size. Right atrial size is normal. There is no significant valvular heart disease. The IVC is dilated (diameter is greater than 2.1 cm) and it collapses less than 50% with a sniff. This suggests a high right atrial pressure of 15 mm Hg. Additional Diagnostics 05:55:00 pH 7.418 pCO2 43.2 pO2 72.7 HCO3 27.4 FIO2 65.0% Assessment & Plan This is a 51-year-old morbidly obese woman with history of type II diabetes, hypertension, and CVA with residual right-sided deficits who originally presented to the ED from urgent care for evaluation of nausea vomiting with fever 4 days. Admitted to the hospitalist service for inpatient management of acute pyelonephritis and sepsis. She developed acute hypoxemic respiratory failure requring 50L high flow oxygen and subsequently transferred to the ICU for bipap and worsening oxygen demand and tx to [facility] [place] 10/16. Acute hypoxemic respiratory failure, not present on admission, improved CTA of chest PE protocol does not reveal any pulmonary emboli there is some possible bibasilar consolidation. Likely secondary to aspiration and pneumonitis. - Currently on nasal canula and tolerating well. ABG as above. Will try to titrate down as tolerated. - Prednisone 40 mg daily - Echocardiogram 10/12/16 results as above - Day 11/09 of antibiotics switched from zosyn to levofloxacin to continue through 10/22/16 - Incentive Spirometry - Physical therapy cleared for discharge home. - Respiratory therapy perform ambulating pulse ox saturations greater than 80%. Likely acute pyelonephritis, present on admission. Improved As demonstrated by her constitutional symptoms, left flank pain, new left perinephric stranding on CT. Urine cultures positive for both E. coli and Klebsiella pneumoniae -Day 8 of antibiotics switched from zosyn to levofloxacin to continue through -Blood cultures negative since 10/07/16 -Tylenol as needed for fevers, Zofran as needed for nausea - Will discharge on Levofloxacin Type II diabetes mellitus, insulin requiring, present on admission Patient has historically difficult to control diabetes. Exacerbated by steroids in hospital. -Hemoglobin A1c was 8.2 -Insulin drip stopped today with transition to 70 units Lantus qAM and 80 units nightly. -Hold her Glipizide and Metformin due to recent contrast and CHARLA -Blood Sugars stable. Likely Acute Kidney Injury, present on admission, resolved -Cr of 1.39 on admission, recent Cr in March was 0.99. CHARLA likely due to dehydration and infection. -Continued treatment as above. Avoid nephrotoxic agents if possible. Sepsis, present on admission. Resolved As demonstrated by fever, tachycardia, with urinary source of infection. Initial lactate was 1.4 Hypovolemic hyponatremia, present on admission. resolved -Likely due to dehydration. Hypokalemia, present on admission. resolved -Potassium 3.4 on admission. -Will continue to monitor History of CVA with residual right-sided deficits, as on admission. Stable -We will continue her full dose aspirin and atorvastatin -Continue her gabapentin for her neuropathy Essential Hypertension, present on admission. 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 -We will continue patient's fluoxetine Insomnia, on admission -We will continue her amitriptyline and melatonin Disposition: Day 11/09 of antibiotics switched from zosyn to levofloxacin to continue through 10/22/16 GI Prophylaxis: Not indicated VTE Prophylaxis: Sub-Q Heparin (Unfractionated) Resuscitation Status: CPR: Attempt Resuscitation Varun Estrada MD Oct 16, 2016 11:03
--- NOTE | 2016-10-16 12:00 | NUR ---
O2 Pt ambulated >240ft. Sats 93% at rest. Sats 90-94% on ambulation. Pt had dark nail ghanaian on and likely altered prior results with PT. MD/resp notified.
[2016-10-16] MEDS ORDERED: LEVO750T9 PO (12:36)
--- NOTE | 2016-10-16 12:39 | PCM.DIMED ---
Discharge Instructions Date of Service Oct 16, 2016 Dates of Hospitalization Oct 07, 2016 at 19:28 Discharge Diagnosis Discharge Diagnosis Acute hypoxemic respiratory failure, not present on admission, improved Likely acute pyelonephritis, present on admission. Improved Type II diabetes mellitus, insulin requiring, present on admission Likely Acute Kidney Injury, present on admission, resolved Sepsis, present on admission. Resolved Hypovolemic hyponatremia, present on admission. resolved Hypokalemia, present on admission. resolved Medication Instructions Additional med instructions Take antibiotic we will stop the levofloxacin for another 6 days. Prescription has been electronically sent to your pharmacy Diet Discharge Diet: Heart Healthy Activity Discharge Activity: No restrictions Call your provider Call your provider for: Fever or Chills, Shortness of breath Patient Instructions Follow-up Provider: [facility] Follow-up with PCP in: 1 week Varun Estrada MD Oct 16, 2016 12:39
--- NOTE | 2016-10-16 12:40 | PCM.DC.MED ---
Discharge Summary Date of Service Oct 16, 2016 Dates of Hospitalization Date of Hospital Admission Oct 07, 2016 at 19:28 Date of Discharge: Oct 16, 2016 Providers: Admitting Physician: Wendy Pardo MD Primary Care Physician: Zoila,[facility] Residency Attending Physician: Rush Frost MD Diagnosis at Time of Discharge Diagnosis at Time of Discharge Acute hypoxemic respiratory failure, not present on admission, improved Likely acute pyelonephritis, present on admission. Improved Type II diabetes mellitus, insulin requiring, present on admission Likely Acute Kidney Injury, present on admission, resolved Sepsis, present on admission. Resolved Hypovolemic hyponatremia, present on admission. resolved Hypokalemia, present on admission. resolved Procedures XRay, CTs & MRIs 10/13/16 PROCEDURE: X-RAY CHEST ONE VIEW, PORTABLE ([id number]) IMPRESSION: Bibasilar opacities compatible atelectasis versus pneumonia. Please correlate with clinical and laboratory data. PROCEDURE: CT ABDOMEN AND PELVIS WITH CONTRAST ([id number]) IMPRESSION: Left perinephric stranding, of unknown etiology. No definite associated urolithiasis. A small calcification seen in the region of the distal left ureter is unchanged since 07/30/15. This could represent recently passed calculus , however cannot exclude pyelonephritis. Please correlate clinically and with urinalysis data. Elsewhere, no acute abnormality seen. PROCEDURE: X-RAY CHEST ONE VIEW ([id number]) IMPRESSION: No acute disease. PROCEDURE: US RENAL SONOGRAM INDICATIONS: Possible hydronephrosis nor obstruction COMPARISON: [facility] Ultrasound, US, [facility], 07/04/2015, 8: 13. CT from 10/07/2016. FINDINGS: Kidneys: Kidneys are normal in size. Right kidney measures 10.1 cm long; left kidney measures 10.6 cm long. Right renal cortical thickness is 1.8 cm; left renal cortical thickness is 1.8 cm. Renal cortical echotexture is normal. No hydronephrosis or nephrolithiasis. No suspicious solid mass lesions. The spleen measures 15.1 x 11.1 x 5.2 CM with a 5 cm splenic cyst. Bladder: The patient's bladder was emptied prior to the examination. Miscellaneous: No free pelvic fluid. IMPRESSION: Sonographically normal kidneys. No sonographic correlate for left perinephric stranding seen on the recent CT. The bladder was emptied prior to the study limiting evaluation. Dictated by: Isac Banuelos M.D. on 10/08/2016 at 17:07 Approved by: Isac Banuelos M.D. on 10/08/2016 at 17:08 ECG 12 Lead 10/08/16 Normal Sinus Rhythm with HR 98 Cardiac Echo Impression Interpretation Summary There is mild concentric left ventricular hypertrophy. The ejection fraction is estimated to be 60-65%. There are no obvious focal wall motion abnormalities noted but poor endocardial definition reduces the sensitivity for the detection of such. Assessment of diastolic parameters indicates normal left ventricular diastolic function and normal filling pressures. The right ventricle grossly appears normal in size with probable normal systolic function. Pulmonary artery pressures cannot be estimated because of the lack of a measurable TR jet velocity. The left atrium grossly appears normal in size. Right atrial size is normal. There is no significant valvular heart disease. The IVC is dilated (diameter is greater than 2.1 cm) and it collapses less than 50% with a sniff. This suggests a high right atrial pressure of 15 mm Hg. Other Diagnostics 05:55:00 pH 7.418 pCO2 43.2 pO2 72.7 HCO3 27.4 FIO2 65.0% Brief History This is a 51-year-old woman with history of type II diabetes, hypertension, and CVA with residual right-sided deficits who originally presented to the ED from urgent care for evaluation of nausea vomiting with fever 4 days. She reports that her symptoms of rigors, myalgis, and nausea began somewhat abruptly Wednesday morning. She originally thought it was food poisoning, but her symptoms continue to progress. She also complains of associated mild headache and lightheadedness. She has noticed decreased urinary frequency due to her poor oral intake and nausea. She also noticed some mild left flank pain, but denies any abdominal pain, diarrhea, rash, or dysuria. She has had multiple UTIs in the past but nothing similar to this. She denies any recent travels or any family members with similar symptoms. In the ED she was noted to be febrile to 39.5C and tachycardic up to 112. She was normotensive and saturating well on room air Her CBC was unrevealing with a white count of 8.0 with no shift Her CMP showed mild hyponatremia and hypokalemia with a BUN/creatinine of 35/ 1.39. Her UA did reveal large LEs with 3-10 rbc's and greater than 50 WBC but negative nitrite She had a CT abdomen and pelvis with contrast which was pertinent for new left perinephric stranding. After blood cultures were drawn patient was started on IV Zosyn for presumed acute pyelonephritis Hospital Course This is a 51-year-old morbidly obese woman with history of type II diabetes, hypertension, and CVA with residual right-sided deficits who originally presented to the ED from urgent care for evaluation of nausea vomiting with fever 4 days. Admitted to the hospitalist service for inpatient management of acute pyelonephritis and sepsis. She developed acute hypoxemic respiratory failure requring 50L high flow oxygen and subsequently transferred to the ICU for bipap and worsening oxygen demand and tx to [facility] [place] 10/16. Acute hypoxemic respiratory failure, not present on admission, improved CTA of chest PE protocol does not reveal any pulmonary emboli there is some possible bibasilar consolidation. Likely secondary to aspiration and pneumonitis. - Currently on nasal canula and tolerating well. ABG as above. Will try to titrate down as tolerated. - Prednisone 40 mg daily - Echocardiogram 10/12/16 results as above - Day 11/09 of antibiotics switched from zosyn to levofloxacin to continue through 10/22/16 - Incentive Spirometry - Physical therapy cleared for discharge home. - Respiratory therapy perform ambulating pulse ox saturations greater than 80%. Likely acute pyelonephritis, present on admission. Improved As demonstrated by her constitutional symptoms, left flank pain, new left perinephric stranding on CT. Urine cultures positive for both E. coli and Klebsiella pneumoniae -Day 8 of antibiotics switched from zosyn to levofloxacin to continue through -Blood cultures negative since 10/07/16 -Tylenol as needed for fevers, Zofran as needed for nausea - Will discharge on Levofloxacin Type II diabetes mellitus, insulin requiring, present on admission Patient has historically difficult to control diabetes. Exacerbated by steroids in hospital. -Hemoglobin A1c was 8.2 -Insulin drip stopped today with transition to 70 units Lantus qAM and 80 units nightly. -Hold her Glipizide and Metformin due to recent contrast and CHARLA -Blood Sugars stable. Likely Acute Kidney Injury, present on admission, resolved -Cr of 1.39 on admission, recent Cr in March was 0.99. CHARLA likely due to dehydration and infection. -Continued treatment as above. Avoid nephrotoxic agents if possible. Sepsis, present on admission. Resolved As demonstrated by fever, tachycardia, with urinary source of infection. Initial lactate was 1.4 Hypovolemic hyponatremia, present on admission. resolved -Likely due to dehydration. Hypokalemia, present on admission. resolved -Potassium 3.4 on admission. -Will continue to monitor History of CVA with residual right-sided deficits, as on admission. Stable -We will continue her full dose aspirin and atorvastatin -Continue her gabapentin for her neuropathy Essential Hypertension, present on admission. 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 -We will continue patient's fluoxetine Insomnia, on admission -We will continue her amitriptyline and melatonin Disposition: Day 11/09 of antibiotics switched from zosyn to levofloxacin to continue through 10/22/16 Exam Vital Signs (Last) Date Time Temp Pulse Resp B/P Pulse Ox O2 Delivery O2 Flow Rate FiO2 10/16/16 08:31 36.6 95 18 127/65 93 Room Air 10/16/16 05:45 21 10/15/16 10:30 3.50 Test 10/07/16 17:23 10/07/16 17:30 10/08/16 06:00 10/09/16 07:30 Urine Color Yellow (YELLOW) Urine Appearance Slightly cloudy Urine pH 5.5 (5.0-8.0) Urine Specific [place] 1.015 (1.003-1.035) Urine Protein Tracemg/dL (NEG,TRACE) Urine Glucose (UA) Negativemg/dL (NEGATIVE) Urine Ketones Negativemg/dL (NEGATIVE) Urine Occult Blood Moderate (NEGATIVE) Urine Nitrite Negative (NEGATIVE) Urine Bilirubin Negative (NEGATIVE) Urine Urobilinogen Normalmg/dL (NORMAL) Urine Leukocyte Esterase Large (NEGATIVE) Urine RBC 3-10/hpf (0-2) Urine WBC >50/hpf (0-5) Urine Epithelial Cells Moderate/hpf (NONE-MOD) Urine Crystals None seen (NONE SEEN) Urine Bacteria Moderate/hpf (NONE-FEW) Urine Hyaline Casts None/lpf (NONE) Urine Granular Casts None seen (NONE SEEN) Urine Waxy Casts None seen (NONE SEEN) Urine Red Blood Cell Casts None seen (NONE SEEN) Urine White Blood Cell Casts None seen (NONE SEEN) Urine Mucus None seen (None Seen) Urine Trichomonas None seen (NONE SEEN) Urine Yeast None (NONE SEEN) Urinalysis Comment None Urine Culture Reflexed Indicated Lipase 11U/L (13-60) Lactic Acid Level 0.5mmol/L (0.4-2.0) C-Reactive Protein 20.4mg/dL (0.0-0.5) Magnesium Level 2.1mg/dL (1.6-2.6) Test 10/10/16 05:20 10/13/16 03:00 10/13/16 21:33 10/14/16 05:35 Troponin T 0.010ug/L (0.0-0.011) Hemoglobin A1c 8.0% (4.8-5.6) Ketones Negative (Negative) Procalcitonin 0.04ng/mL (0.00-0.08) Test 10/15/16 05:00 10/16/16 06:45 Corrected White Blood Count th/mm3 (3.8-10.1) Total Bilirubin 0.2mg/dL (0.0-1.2) Aspartate Amino Transf (AST/SGOT) 20U/L (0-50) Alanine Aminotransferase (ALT/SGPT) 57U/L (0-32) Alkaline Phosphatase 111U/L (25-150) Total Protein 5.5g/dL (6.4-8.4) Albumin 3.1g/dL (3.4-5.0) White Blood Count 13.0th/mm3 (3.8-10.1) Red Blood Count 3.28mil/mm3 (3.90-5.20) Hemoglobin 9.2g/dL (12.0-15.6) Hematocrit 29.1% (35.0-46.0) Mean Corpuscular Volume 88.7fL (81-100) Mean Corpuscular Hemoglobin 28.0pg (27.0-35.0) Mean Corpuscular Hemoglobin Concent 31.6% (32.0-37.0) Red Cell Distribution Width 15.5% (12.3-15.4) Platelet Count 246bil/L (150-400) Neutrophils (%) (Auto) 62.2% (40-74) Lymphocytes (%) (Auto) 27.9% (14-46) Monocytes (%) (Auto) 4.8% (4-12) Eosinophils (%) (Auto) 0.5% (0-5) Basophils (%) (Auto) 0.2% (0-3) Sodium Level 139mEq/L (134-144) Potassium Level 4.4mEq/L (3.5-5.2) Chloride Level 106mEq/L (97-108) Carbon Dioxide Level 25mmol/L (18-29) Blood Urea Nitrogen 21mg/dL (6-24) Creatinine 0.88mg/dL (0.57-1.00) Estimat Glomerular Filtration Rate 97mL/min (>59) Glucose Level 118mg/dL (60-99) Calcium Level 8.6mg/dL (8.5-10.1) Microbiology Results Item Value Date Time Blood Culture - Preliminary Resulted 10/07/16 1905 Blood Aerobic And Anaerobic Bottle No growth at 2 days; culture examined... Blood Culture - Preliminary Resulted 10/07/16 1855 Blood Aerobic And Anaerobic Bottle No growth at 2 days; culture examined... Urine Culture - Final Complete 10/07/16 1723 Urine,Clean Catch Pre-Plated Klebsiella Pneumoniae E. coli Discharge Medications Discharge Medications Amitriptyline (Amitriptyline) 50 Mg Tab 50 MG PO HS (Reported) Amlodipine (Amlodipine) 10 Mg Tablet 10 MG PO HS (Reported) Ascorbic Acid (Vitamin C) 500 Mg Capsule.er 1,000 MG PO QAM (Reported) Aspirin (Aspirin) 325 Mg Tablet 325 MG PO QAM (Reported) Atorvastatin Calcium (Atorvastatin Calcium) 40 Mg Tablet 40 MG PO HS (Reported) Cholecalciferol (Vitamin D3) (Vitamin D3) 4,000 Unit Capsule 4,000 UNIT PO QAM ( Reported) Cyanocobalamin (Vitamin B12) 500 Mcg Tablet 1,000 MCG PO QAM (Reported) Ferrous Sulfate (Iron) 325 Mg Capsule.er 325 MG PO QAM (Reported) Fluoxetine (Fluoxetine) 20 Mg Capsule 80 MG PO QAM (Reported) Furosemide (Furosemide) 40 Mg Tablet 40 MG PO BIDWM (Reported) Gabapentin (Gabapentin) 600 Mg Tablet 600 MG PO TIDWM (Reported) GABAPENTIN 600 MG IN AM/AFTERNOON/EVENING AND 1200 MG AT HS Gabapentin (Gabapentin) 600 Mg Tablet 1,200 MG PO HS (Reported) GABAPENTIN 600 MG IN AM/AFTERNOON/EVENING AND 1200 MG AT HS Glipizide ER (Glipizide ER) 10 Mg Tab.er.24 10 MG PO QAM (Reported) Hydrochlorothiazide (Hydrochlorothiazide) 25 Mg Tablet 25 MG PO QAM (Reported) Insulin Glargine (Lantus U100 Insulin Vial) 100 Unit/Ml Vial 60 UNIT SUBQ QAM ( Reported) LANTUS 60 UNITS IN AM AND 80 UNITS AT HS Insulin Glargine (Lantus U100 Insulin Vial) 100 Unit/Ml Vial 80 UNIT SUBQ HS ( Reported) Levofloxacin (Levaquin) 750 Mg Tablet 750 MG PO DAILYAC Prescribed by: RUSH FROST MD Lisinopril (Lisinopril) 40 Mg Tablet 40 MG PO QAM (Reported) Melatonin (Melatonin 1 mg Tablet) 1 Each Tablet 1 MG PO HS (Reported) Metformin ER (Glucophage XR) 500 Mg Tablet 2,000 MG PO DAILYWD (Reported) As needed Insulin Human Lispro (HumaLOG U100 Insulin Vial) 100 Unit/Ml Unit 5-15 UNITS SUBQ q6hr PRN PRN Q6H DIR. (Reported) Check blood sugars before meals and at bedtime. Use correction factor only before meals. Blood Sugar Lispro Correction: <151, 0 units; 151-175, 1 unit; 176-200, 2 units; 201-225, 3 units; 226-250, 4 units; 251-275, 5 units; 276-300 , 6 units; 301-325, 7 units; 326-350, 8 units; 351-375, 9 units; 376-400, 10 units; >400, 12 units. Miscellaneous Medications ([Mirena Iud]) VAGINAL (Reported) 20MCG/24H Additional med instructions Take antibiotic we will stop the levofloxacin for another 6 days. Prescription has been electronically sent to your pharmacy Followup Plan Disposition: Discharge to home. Follow up with primary care physician in one week Discharge Diet: Heart Healthy Discharge Activity: No restrictions Follow-up Provider: [facility] Follow-up with PCP in: 1 week Rush Frost MD Oct 16, 2016 12:40
[2016-10-16 13:23] VITALS: PULSE 113
--- NOTE | 2016-10-16 13:28 | NUR ---
Social Work: Discharge/Multidisciplinary Rounds D: Pt discussed in am rounds. Pt is medically stable for discharge home. Pt will require home 02. RT consult has been placed to asses the patient for home 02. B[employer]ER met with the patient at bedside to confirm discharge plan. She expresses no concerns about discharge and states her s/o will transport her home. EMR reviewed, no needs at this time. Capacity for self care addressed in am rounds. No concerns as pt has been ambulating I and completing her own self care. A: Pt who is I at [facility] P: Pt to discharge home via POV and Home 02 to be setup through RT. IVAN Kumar
--- NOTE | 2016-10-16 15:06 | NUR ---
Discharge Pt dc'd ambulatory with son at 1450. No complaints/concerns. All discharge paperwork and instructions reviewed prior and pt verbalized understanding. All belongings with pt.
== END 2016-10-16 14:50 | disposition home or self-care (01) | DRG 871 ==
LOC: SED 16:49 → OSC 19:28 → PCC 10-09 05:10 → CCU 10-10 18:00 → PCC 10-14 17:36 → MOC 10-15 10:36
PROVIDERS: ADMIT Specialist; ATTEND Specialist
PROC: 4A033R1 Measurement of Arterial Saturation, Peripheral, Percutaneous Approach (ICD-10-PCS; principal; 2016-10-09)
DX: A41.9 Sepsis, unspecified organism (principal); J96.01 Acute respiratory failure with hypoxia; J69.0 Pneumonitis due to inhalation of food and vomit; N10 Acute pyelonephritis; N17.9 Acute kidney failure, unspecified; Z68.43 Body mass index [BMI] 50.0-59.9, adult; E87.1 Hypo-osmolality and hyponatremia; I69.351 Hemiplegia and hemiparesis following cerebral infarction affecting right dominant side; B96.1 Klebsiella pneumoniae [K. pneumoniae] as the cause of diseases classified elsewhere; B96.20 Unspecified Escherichia coli [E. coli] as the cause of diseases classified elsewhere; E66.01 Morbid (severe) obesity due to excess calories; R65.20 Severe sepsis without septic shock; Z79.4 Long term (current) use of insulin; E87.6 Hypokalemia; I10 Essential (primary) hypertension; F41.8 Other specified anxiety disorders; G47.33 Obstructive sleep apnea (adult) (pediatric); Z87.891 Personal history of nicotine dependence; G47.00 Insomnia, unspecified; E11.65 Type 2 diabetes mellitus with hyperglycemia